=== PATIENT | female | born 1960 | race Two or more races ===

== ENCOUNTER 2020-05-03 14:12 | Outpatient (REF) | payer OTHER, SELFPAY ==
[2020-05-03 18:45] LABS: Anion Gap 14 (12-20); Blood Urea Nitrogen 12 mg/dL (9-16); Calcium 9.4 mg/dL (8.4-10.2); Carbon Dioxide 26 mmol/L (22-29); Chloride 107 mmol/L (96-108); Estimated Glomerular Filt Rate > 60; Glucose Random 103 mg/dL (60-115); Potassium 3.9 mmol/l (3.3-5.1); Sodium 143 mmol/L (135-145)
== END 2020-05-03 14:13 | disposition home or self-care (01) ==
LOC: HO.HMGCLDS 14:12
PROVIDERS: PCP Internal Medicine; Visit Provider Internal Medicine
DX: I10 Essential (primary) hypertension (principal); J45.909 Unspecified asthma, uncomplicated; F33.9 Major depressive disorder, recurrent, unspecified
CPT/HCPCS: 80048

== ENCOUNTER 2020-08-08 14:05 | Outpatient (REF) | payer OTHER, SELFPAY ==
--- NOTE | ~2020-08-08 | MM_ITS ---
EXAMINATION: MM SCREENING DIGITAL BREAST TOMOSYNTHESIS, BILATERAL CLINICAL INFORMATION: Screening. Asymptomatic. The lifetime risk of breast cancer based on the Tyrer-Cuzick Model is 4%. COMPARISON: Mammography: 07/27/2019, 07/21/2018, 07/18/2017, 06/08/2016 TECHNIQUE: Digital breast tomosynthesis is performed in both the craniocaudal and mediolateral oblique views along with computer-aided detection (CAD). Synthesized 2D images are generated from the tomosynthesis. Additional left MLO view is provided. FINDINGS: The breasts are heterogeneously dense, which may obscure small masses (ACR BI-RADS breast composition Category c). There are no significant masses, abnormal calcifications, or other abnormalities. Parenchymal pattern is similar to prior exams. Again, there is intramammary node anterior upper outer left breast and bilateral vascular calcifications. No developing density. No significant changes. MM/MM tomosynthesis screening BI IMPRESSION: No mammographic evidence of malignancy. ASSESSMENT: BI-RADS 2: Benign RECOMMENDATION: Routine annual mammography screening. This patient's information was entered into a reminder system with a target due date for their next mammogram.
== END 2020-08-08 14:06 | disposition home or self-care (01) ==
LOC: HO.MAMMO 14:05
PROVIDERS: Visit Provider Internal Medicine
DX: Z12.31 Encounter for screening mammogram for malignant neoplasm of breast (principal)
CPT/HCPCS: 77063; 77067

== ENCOUNTER 2020-10-21 13:58 | Outpatient (REF) | payer OTHER, SELFPAY ==
--- NOTE | ~2020-10-21 | XR_ITS ---
EXAMINATION: XR SHOULDER, RIGHT CLINICAL INFORMATION: Pain COMPARISON: None TECHNIQUE: AP external rotation, Grashey, scapular Y, and axillary views of the right shoulder. FINDINGS: Bone alignment is normal. No fracture or dislocation is seen. The glenohumeral joint is normal. There is mild arthritis at the acromioclavicular joint. Soft tissues are unremarkable. XR/XR shoulder RT min 2V IMPRESSION: Mild arthritis at the acromioclavicular joint.
== END 2020-10-21 13:59 | disposition home or self-care (01) ==
LOC: HO.XRAY 13:58
PROVIDERS: PCP Internal Medicine; Visit Provider Internal Medicine
DX: M25.511 Pain in right shoulder (principal)
CPT/HCPCS: 73030

== ENCOUNTER 2020-10-24 14:00 | Outpatient (RCR) | payer OTHER, SELFPAY | END 2020-11-23 12:04 | disposition other institution (70) | LOC: HO.OT 14:00 | PROVIDERS: PCP Internal Medicine; Visit Provider Internal Medicine | DX: M79.641 Pain in right hand (principal); M79.642 Pain in left hand | CPT/HCPCS: 97035; 97110; 97140; 97167; 97760 ==

== ENCOUNTER 2021-04-19 13:13 | Outpatient (REF) | payer OTHER, SELFPAY ==
[2021-04-19 14:03] LABS: MANUAL DIFF FLAG NO
[2021-04-19 14:10] LABS: Basophils Percent Auto 0.6 % (0-2); Eosinophils Absolute Auto 0.1 X10*3/uL (0.0-0.4); Eosinophils Percent Auto 1.7 % (0-4); Hematocrit 38.1 % (37.0-47.0); Hemoglobin 12.5 g/dl (12.0-16.0); Imm Gran Abs Auto 0.01 X10*3/uL (0.00-0.03); Imm Gran Pct Auto 0.2 % (0.0-0.4); Lymphocytes Absolute Auto 1.7 X10*3/uL (1.2-4.9); Lymphocytes Percent Auto 35.1 % (20-40); Mean Corpuscular HGB Conc 32.8 g/dl (31.0-35.0); Mean Corpuscular Hemoglobin 27.3 pg (27.0-33.0); Mean Corpuscular Volume 83.2 fL (80.0-98.0); Mean Platelet Volume 11.4 fL (9.4-12.3); Monocytes Absolute Auto 0.4 X10*3/uL (0.1-1.2); Monocytes Percent Auto 7.9 % (2-11); Neutrophils Absolute Auto 2.62 x10*3/uL (2.0-8.3); Neutrophils Percent Auto 54.5 % (45-73); Platelet Count 213 X10*3/uL (160-400); Red Blood Count 4.58 X10*6/uL (4.20-5.50); White Blood Count 4.8 X10*3/uL (4.8-10.8)
[2021-04-19 14:43] LABS: Alanine Aminotransferase 31 U/L (0-31); Albumin Level 4.3 g/dL (3.5-5.0); Alkaline Phosphatase 78 U/L (39-117); Anion Gap 11 (12-20); Aspartate Amino Transferase 27 U/L (5-31); Bilirubin Total 0.5 mg/dL (0.0-1.0); Blood Urea Nitrogen 15 mg/dL (9-16); Calcium 9.5 mg/dL (8.4-10.2); Carbon Dioxide 25 mmol/L (22-29); Chloride 107 mmol/L (96-108); Estimated Glomerular Filt Rate > 60; Glucose Random 107 mg/dL (60-115); Potassium 4.1 mmol/L (3.3-5.1); Sodium 139 mmol/L (135-145); Total Protein 6.9 g/dL (6.5-8.0)
[2021-04-19 14:54] LABS: TSH reflex Free T4 1.84 uIU/mL (0.32-4.0)
[2021-04-20 09:20] LABS: LDL Cholesterol Direct 120 mg/dL (<100)
== END 2021-04-19 13:14 | disposition home or self-care (01) ==
LOC: HO.HMGCLDS 13:13
PROVIDERS: Visit Provider Internal Medicine
DX: F41.0 Panic disorder [episodic paroxysmal anxiety] (principal); M79.641 Pain in right hand; M79.642 Pain in left hand; F33.9 Major depressive disorder, recurrent, unspecified; J45.909 Unspecified asthma, uncomplicated; I10 Essential (primary) hypertension
CPT/HCPCS: 36415; 80053; 83721; 84443; 85025

== ENCOUNTER 2021-08-18 11:54 | Outpatient (REF) | payer OTHER, SELFPAY ==
--- NOTE | ~2021-08-18 | MM_ITS ---
EXAMINATION: MM SCREENING DIGITAL BREAST TOMOSYNTHESIS, BILATERAL CLINICAL INFORMATION: Screening. Asymptomatic. The lifetime risk of breast cancer based on the Tyrer-Cuzick Model is 3%. COMPARISON: Mammography: 08/08/2020, 07/27/2019, 07/21/2018, 07/18/2017 TECHNIQUE: Digital breast tomosynthesis is performed in both the craniocaudal and mediolateral oblique views along with computer-aided detection (CAD). Synthesized 2D images are generated from the tomosynthesis. FINDINGS: The breasts are heterogeneously dense, which may obscure small masses (ACR BI-RADS breast composition Category c). There are no significant masses, abnormal calcifications, or other abnormalities. No developing density. No architectural abnormality or significant change from prior studies. MM/MM tomosynthesis screening BI IMPRESSION: No mammographic evidence of malignancy. ASSESSMENT: BI-RADS 1: Negative RECOMMENDATION: Routine annual mammography screening. This patient's information was entered into a reminder system with a target due date for their next mammogram.
== END 2021-08-18 11:55 | disposition home or self-care (01) ==
LOC: HO.MAMMO 11:54
PROVIDERS: Visit Provider Internal Medicine
DX: Z12.31 Encounter for screening mammogram for malignant neoplasm of breast (principal)
CPT/HCPCS: 77063; 77067

== ENCOUNTER 2021-08-29 14:12 | Emergency (ER) | payer OTHER, SELFPAY ==
[2021-08-29 14:40] VITALS: BP 167/83; PULSE 88; RESP 18; TEMP 36.3; O2SAT 99; BMI 24.0
--- NOTE | 2021-08-29 15:13 | ED_ITS ---
HPI - Back Pain/Injury General Chief Complaint: Back Pain/Injury Stated Complaint: back pain Time Seen by Provider: 08/29/21 15:00 Source: patient Mode of arrival: ambulatory Limitations: no limitations History of Present Illness HPI Narrative: Patient is a 61 year old female presenting to the emergency department today with back pain. Patient states that she is having low back pain that radiates down the back of her legs. Patient states that she has had it for a few days now and had a telehealth visit with her PCP where she was prescribed 5mg of Flexeril. She states that she already used all of her flexeril and it only helped some. Patient describes the pain as sharp, radiating down her legs, and a 4/10 on the pain scale. Patient denies any dizziness, lightheadedness, abdominal pain, nausea, vomiting, fever, chills, blurry vision, double vision, loss of vision, chest pain, difficulty breathing, shortness of breath, night sweats, pain with urination, increased urinary frequency, increased urinary urgency, blood in her urine or stool, vaginal bleeding, vaginal discharge, syncope or a near syncopal episode, recent trauma or falls, bowel incontinence, bladder incontinence, bowel retention, bladder retention, or any other complaints at this time. MD elicited complaint: back pain Pertinent past history: prior back pain Onset (ago): day(s) Timing: constant Severity: mild Pain scale (0-10): 4 Similar Symptoms Previously: Yes Quality: sharp Location: lumbar spine Radiation: left upper leg and right upper leg Exacerbating factors: none Relieving factors: none Associated symptoms: denies other symptoms Work related injury: No Related Data Previous Rx's Medication Instructions Recorded albuterol sulfate 90 mcg/actuation 1 inh INHALATION QID PRN 30 Days 07/19/20 aerosol inhaler (Ventolin HFA) #18 g cholecalciferol (vitamin D3) 50 50 mcg PO DAILY 90 Days #90 cap 07/19/20 mcg (2,000 unit) capsule acetaminophen 325 mg capsule 325 mg PO .T.i.d. PRN 90 Days #90 09/02/20 (Tylenol) cap quetiapine 25 mg tablet (Seroquel) 25 mg PO BEDTIME 90 Days #90 tab 09/02/20 fluticasone propionate 250 1 inh INHALATION BID 3 Days #60 ea 04/19/21 mcg/actuation blister powder for inhalation (Flovent Diskus) losartan 100 1 tab PO DAILY 90 Days #90 tab 04/19/21 mg-hydrochlorothiazide 25 mg tablet diclofenac sodium 75 mg 75 mg PO BID PRN 15 Days #30 tab 05/05/21 tablet,delayed release cyclobenzaprine 5 mg tablet 5 mg PO BID PRN 3 Days #6 tab 08/26/21 cyclobenzaprine 10 mg tablet 10 mg PO TID PRN 7 Days #21 tab 08/29/21 naproxen 500 mg tablet 500 mg PO BID PRN #14 tab 08/29/21 Allergies Allergy/AdvReac Type Severity Reaction Status Date / Time PCN Allergy Unknown unknown Verified 05/05/21 13:53 lisinopril AdvReac Unknown cough Verified 05/05/21 13:53 Review of Systems Constitutional: Constitutional: Reports no additional constitutional complaints, Denies chills, Denies fever(s) and Denies night sweats Eyes: Eyes: Reports no additional eye complaints, Denies blurry vision, Denies change in vision, Denies diplopia, Denies eye discharge, Denies loss of vision and Denies eye pain ENT: Denies dizziness Cardiovascular: Cardiovascular: Reports no additional cardiovascular complaints, Denies chest pain, Denies lightheadedness, Denies Loss of Consciousness and Denies dyspnea Respiratory: Respiratory: Reports no additional respiratory complaints and Denies dyspnea Gastrointestinal: Gastrointestinal: Reports no additional gastrointestinal complaints, Denies abdominal pain, Denies melena, Denies hematochezia, Denies change in bowel habits and Denies change in stool character Genitourinary: Genitourinary: Denies hematuria, Denies urinary frequency, Denies dysuria, Denies urinary incontinence, Denies urinary hesitancy and Denies urinary urgency Musculoskeletal: Musculoskeletal: Reports no additional musculoskeletal complaints, Reports back pain, Denies numbness and Denies tingling Neurologic: Denies dizziness, Denies loss of vision, Denies numbness and Denies tingling Psychiatric: Psychiatric: Reports no additional psychiatric complaints Endocrine: Endocrine: Reports no additional endocrine complaints Hematologic/Lymphatic: Hematologic/Lymphatic: Reports no additional hematologic/lymphatic complaints Allergic/Immunologic: Allergic/Immunologic: Reports no additional allergic/immunologic complaints PMFSH Past Medical History Attestation statement: The following information was validated with the patient. Source: old records reviewed Medical History Anxiety Depression, major, recurrent Hypertension, essential Surgical History History of section History of colonoscopy Family History Family History Father No problems noted. Mother HTN (hypertension) Diabetes mellitus Sister Metastatic cancer Sister Brain cancer Maternal Grandfather No problems noted. Maternal Grandmother No problems noted. Paternal Grandfather No problems noted. Paternal Grandmother No problems noted. Social History Social History Housing: House Alcohol intake: current Alcohol intake frequency: holidays/special occasions only Patient Tobacco Use Status: Former Tobacco user Advance Directives: No Advance Directives Information Provided: No Patient : No Current occupational status: employed Physical Exam Vital Signs: Vital Signs: Last Vital Signs Temp 97.3 F 08/29/21 14:40 Pulse 88 08/29/21 14:40 Resp 18 08/29/21 14:40 BP 167/83 H 08/29/21 14:40 Pulse Ox 99 08/29/21 14:40 BMI result Body Mass Index 24.0 Const: General: cooperative, no acute distress, alert and awake Nutritional Appearance: well nourished Orientation/consciousness: patient oriented x3 Limitations: no limitations HENMT: Head: Yes normal to inspection and Yes atraumatic Ears: hearing grossly normal bilaterally and external ears normal General nose exam: Normal external nose present, no nasal discharge noted and no epistaxis Face and sinus: Yes normal facial exam, No abrasion and No laceration Mouth: Normal oral and palatal mucosa present, no drooling and no muffled voice Eyes: General: appearance normal, both eyes and all related structures Periorbital: periorbital findings normal Eyelids: Yes eyelids normal Conjunctivae: conjunctivae normal Pupils: Equal, round and reactive pupils present EOM: EOMs intact bilaterally Neck: Neck: Yes normal visual inspection, Yes full ROM and Yes no lymphadenopathy Chest: Chest palpation & inspection: normal inspection of the chest Resp: Effort & Inspection: normal respiratory effort and able to speak in complete sentences Auscultation: clear to auscultation bilaterally Cardio: Rate: regular rate Rhythm: regular rhythm GI: Inspection: Yes normal to inspection : General: Yes no CVA tenderness Back/Spine/Pelvis: Back: no CVA tenderness Cervical Spine: normal cervical lordosis Thoracic/Lumbar Spine: thoracic and lumbar spine normal to inspection and thoraco-lumbar ROM normal Pelvis: no pain with anterior- posterior compression Neuro: General: patient oriented x3 and moves all extremities Cranial nerves: Yes Equal, round and reactive pupils present Cognition (Neuro): normal cognition Motor exam (neuro): 5/5 motor strength present throughout Sensory Exam: Normal double simultaneous stimulation for sensation Coordination: [id number] test normal Extrem: General: Yes normal to inspection, Yes full ROM and Yes capillary refill normal Psych: Appearance: grossly normal Mental Status: mental status grossly normal Affect: normal affect Attitude: cooperative Thought process: Normal thought process present Thought content: Normal thought content p resent Insight: Good insight present (Psych) MDM - Back Pain/Injury MDM Narrative Medical decision making narrative: Patient is a 61 year old female presenting to the emergency department today with low back pain that radiates down her legs. Patient's physical exam was unremarkable. I explained my physical exam findings to the patient. I answered all questions asked by the patient. Patient received IM toradol, IM solu-medrol, and PO Flexeril which she stated helped her pain significantly. I stressed the importance of the patient taking her medication as prescribed. I stressed the importance of the patient following up with her primary care provider. I explained to the patient given her current presentation, this is very likely a sciatic nerve issue. I stressed to the patient that if symptoms persist after 1 week, she should seek follow up with an orthopedic and pain specialist. I stressed the importance of the patient returning to the emergency department immediately if her symptoms were to worsen or if she were to develop any dizziness, shortness of breath, difficulty breathing, chest pain, blurry vision, loss of vision, nausea, vomiting, abdominal pain, fever, chills, back pain, or any other complaints. Patient verbalized agreement and understanding with this treatment plan and discharge. Differential Diagnosis Differential diagnosis: Likely lumbar radiculopathy, sciatica and strain of lumbar region Medical Records Attestation: I reviewed the patient's medical records. Discharge Plan Discharge Clinical Impression: Sciatic nerve pain, Back pain Patient Disposition: Home, Self-Care Instructions: Sciatica (ED), Acute Low Back Pain (ED), Back Pain (ED), Lower Back Exercises (ED) Additional Instructions: Follow up with your primary care provider. Return to the emergency department immediately if your symptoms worsen or if you develop any dizziness, shortness of breath, difficulty breathing, chest pain, blurry vision, loss of vision, nausea, vomiting, abdominal pain, fever, chills, back pain, or any other complaints. Prescriptions: New cyclobenzaprine 10 mg tablet 10 mg PO TID PRN (Reason: muscle spasm) 7 Days Qty: 21 0RF naproxen 500 mg tablet 500 mg PO BID PRN (Reason: pain) Qty: 14 0RF No Action cholecalciferol (vitamin D3) 50 mcg (2,000 unit) capsule 50 mcg PO DAILY 90 Days Qty: 90 0RF albuterol sulfate [Ventolin HFA] 90 mcg/actuation HFA aerosol inhaler 1 inh inhalation QID PRN (Reason: shortness of breath or wheezing) 30 Days Qty: 18 0RF cyclobenzaprine 5 mg tablet 5 mg PO BID PRN (Reason: muscle spasm) 3 Days Qty: 6 0RF quetiapine [Seroquel] 25 mg tablet 25 mg PO BEDTIME 90 Days Qty: 90 0RF Hold Instructions: Doctor's Order acetaminophen [Tylenol] 325 mg capsule 325 mg PO .T.i.d. PRN (Reason: pain) 90 Days Qty: 90 0RF losartan-hydrochlorothiazide 100-25 mg tablet 1 tab PO DAILY 90 Days Qty: 90 0RF Flovent Diskus 250 mcg/actuation blister with device 1 inh inhalation BID 3 Days Qty: 60 2RF diclofenac sodium 75 mg tablet,delayed release (DR/EC) 75 mg PO BID PRN (Reason: pain, moderate) 15 Days Qty: 30 0RF Rx Instructions: Take medication with food Referrals: Huy Connell MD [Physician] - 1 week Erika Vyas MD [Primary Care Provider] - 2 days Jermain Jacobson MD [Physician] - 1 week Interventions: ED Discharge Assessment Last Done: 08/29/21 15:57 Discharge Date/Time: 08/29/21 16:08 Print Language: Uzbek
[2021-08-29] MEDS: Cyclobenzaprine HCl 10 MG TABLET PO (15:47)
[2021-08-29] MEDS: Ketorolac Tromethamine 30 MG/ML VIAL IM (15:48)
[2021-08-29] MEDS: methylPREDNISolone Sod Succ 125 MG/2 ML VIAL 120 MG IM (15:48)
== END 2021-08-29 16:08 | disposition home or self-care (01) ==
PROVIDERS: Emergency Provider Emergency Medicine; PCP Internal Medicine
DX: M54.42 Lumbago with sciatica, left side (principal); M54.41 Lumbago with sciatica, right side; I10 Essential (primary) hypertension
CPT/HCPCS: 96372; 99284; J1885; J2930

== ENCOUNTER 2021-09-06 09:22 | Outpatient (REF) | payer OTHER, SELFPAY ==
--- NOTE | ~2021-09-06 | XR_ITS ---
EXAMINATION: XR LUMBOSACRAL SPINE CLINICAL INFORMATION: Radiculopathy. COMPARISON: None TECHNIQUE: Three views of the lumbosacral spine. FINDINGS: There is a rudimentary disc at the S1-S2 disc level. The vertebral bodies and posterior elements are normal. The disc spaces are preserved and the vertebral alignment is normal. The paraspinal soft tissues are normal. XR/XR lumbar spine 2-3V IMPRESSION: Unremarkable lumbar spine examination.
== END 2021-09-06 09:23 | disposition home or self-care (01) ==
LOC: HO.HMGCX 09:22
PROVIDERS: Visit Provider Internal Medicine
DX: M54.16 Radiculopathy, lumbar region (principal)
CPT/HCPCS: 72100

== ENCOUNTER 2021-10-06 15:00 | Outpatient (RCR) | payer OTHER, SELFPAY ==
--- NOTE | 2021-09-11 14:50 | MHC.PT.EP ---
[facility] [place] Office [place] Office [place] Office [address] [place] [address] [phone] F: [phone] F: [phone] F: [phone] F: [phone] Physical Therapy Plan of Care Date of Evaluation: Date of Surgery: n/a Diagnosis: radiculopathy, lumbar region R lumbar radiculopathy Assessment: Patient is a 61 year old female presenting to PT with complaints of pain in her low back. Pt reports onset of pain began 1 month ago due to insidious onset but feels it could be related to her job that requires a lot of physical lifting. She presents today with impairments in pain, lumbar ROM, hip strength, core strength, and posture. 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 Pt expresses fdc goal of reducing pain, and is motivated to work towards this in PT. Clinical presentation today is most consistent with signs and sx associated with low back pain that is likely myofascial in nature and pt will benefit from skilled PT to address the following problems and impairments noted upon evaluation: pain, lumbar ROM, hip strength, core strength, and posture. These problems limit the patient with the following functional activities: bending, lifting, work, and ADLs. The prescribed treatment plan of care is medically necessary. Co-morbidities of HTN were identified and taken into considerations of plan of care. Pt was educated on HEP, role of PT, prognosis, POC. Frequency and Duration: The patient will be seen 2 x week x 4 weeks Short Term Goals: Pt will demonstrate lumbar AROM in available ranges with min to no pain in 2 weeks. Pt will demonstrate improved hip strength by 1/3 MMT for improved lumbopelvic stability in 2 weeks. Pt will demonstrate ability to perform PPT with good TA activation in 2 weeks for improved core stability. Pt will demonstrate improved postural awareness by sitting with biomechanically correct posture without cues throughout session to improve overall postural function in 2 weeks. Technical Services Specialist Goals: Pt will demonstrate improved Todd score to <10% disability in 4 weeks for improved functional mobility. Pt will demonstrate ability to bend with min to no pain in 4 weeks for improved tolerance to ADLs. Pt will demonstrate ability to lift with min to no pain in 4 weeks for improved tolerance to work activities. Treatment Plan: Modalities to reduce pain, spasms and effusion. Manual therapy to restore motion and function. Therapeutic exercise to improve strength and flexibility. Neuromuscular re-education for posture and balance. Therapeutic activities to return to functional activities of daily living. Electronically signed by: Fraiha Jimenez, PT, DPT, ATC Please sign and return to therapist. Thank you for your referral.
--- NOTE | 2021-10-06 15:55 | MHC.PT.DC ---
[facility] [place] Office [place] Office [place] Office [address] [place] [address] [phone] F: [phone] F: [phone] F: [phone] F: [phone] Physical Therapy Discharge Report Diagnosis: radiculopathy, lumbar region R lumbar radiculopathy Date of Surgery: n/a Date of Evaluation: 09/11/21 Date of Discharge: 10/06/21 Treatments to Date: 7 Cancellations to Date: 1 No Shows to Date: 0 Discharge Status: Improved Function Patient Elected to Stop Discharge Summary: Pt has made good progress since start of care in her pain levels. She has not met all her goals but she is satisfied with her progress at this point and feels ready to continue with her program at home. She stated today that she is scheduled to follow up with pain management as well. I feel it is appropriate for her to continue with her program at home based on her compliance and satisfaction with lower pain levels. At this point pt to be d/c to HEP. She understands the importance of fdc continuation of her HEP. Electronically signed by: Fariha Jimenez, PT, DPT, ATC Please sign and return to therapist. Thank you for your referral.
== END 2021-10-06 15:56 | disposition home or self-care (01) ==
LOC: HO.PTCHIC 15:00
PROVIDERS: Visit Provider Internal Medicine
DX: M54.16 Radiculopathy, lumbar region (principal)
CPT/HCPCS: 97110; 97161

== ENCOUNTER 2021-12-15 13:04 | Outpatient (REF) | payer OTHER, SELFPAY ==
[2021-12-15 16:27] LABS: MANUAL DIFF FLAG NO
[2021-12-15 16:30] LABS: Basophils Absolute Auto 0.1 X10*3/uL (0.0-0.2); Basophils Percent Auto 1.4 % (0-2); Eosinophils Absolute Auto 0.2 X10*3/uL (0.0-0.4); Eosinophils Percent Auto 3.6 % (0-4); Hematocrit 36.3 % (37.0-47.0); Hemoglobin 11.9 g/dl (12.0-16.0); Imm Gran Abs Auto 0.01 X10*3/uL (0.00-0.03); Imm Gran Pct Auto 0.2 % (0.0-0.4); Lymphocytes Absolute Auto 2.5 X10*3/uL (1.2-4.9); Lymphocytes Percent Auto 48.3 % (20-40); Mean Corpuscular HGB Conc 32.8 g/dl (31.0-35.0); Mean Corpuscular Hemoglobin 26.8 pg (27.0-33.0); Mean Corpuscular Volume 81.8 fL (80.0-98.0); Mean Platelet Volume 11.2 fL (9.4-12.3); Monocytes Absolute Auto 0.4 X10*3/uL (0.1-1.2); Monocytes Percent Auto 7.9 % (2-11); Neutrophils Percent Auto 38.6 % (45-73); Platelet Count 261 X10*3/uL (160-400); Red Blood Count 4.44 X10*6/uL (4.20-5.50); Red Cell Distribution Width 13.6 % (11.0-16.0); White Blood Count 5.1 X10*3/uL (4.8-10.8)
[2021-12-15 16:41] LABS: Alanine Aminotransferase 26 U/L (0-31); Albumin Level 4.5 g/dL (3.5-5.0); Alkaline Phosphatase 68 U/L (39-117); Anion Gap 14 (12-20); Aspartate Amino Transferase 25 U/L (5-31); Bilirubin Total 0.9 mg/dL (0.0-1.0); Blood Urea Nitrogen 24 mg/dL (9-16); Calcium 9.7 mg/dL (8.4-10.2); Carbon Dioxide 27 mmol/L (22-29); Chloride 106 mmol/L (96-108); Estimated Glomerular Filt Rate > 60; Glucose Random 97 mg/dL (60-115); Potassium 3.9 mmol/L (3.3-5.1); Sodium 143 mmol/L (135-145); Total Protein 7.2 g/dL (6.5-8.0)
[2021-12-16 22:22] LABS: LDL Cholesterol Direct 85 mg/dL (<100)
== END 2021-12-15 13:05 | disposition home or self-care (01) ==
LOC: HO.HMGCLDS 13:04
PROVIDERS: Visit Provider Internal Medicine
DX: F33.9 Major depressive disorder, recurrent, unspecified (principal); J45.40 Moderate persistent asthma, uncomplicated; I10 Essential (primary) hypertension
CPT/HCPCS: 36415; 80053; 83721; 85025

== ENCOUNTER 2022-11-20 15:06 | Outpatient (REF) | payer OTHER, SELFPAY ==
--- NOTE | ~2022-11-20 | MM_ITS ---
EXAMINATION: MM SCREENING DIGITAL BREAST TOMOSYNTHESIS, BILATERAL CLINICAL INFORMATION: Screening. Asymptomatic. The lifetime risk of breast cancer based on the Tyrer-Cuzick Model is 3%. COMPARISON: Mammography: 08/18/2021, 08/08/2020, 07/27/2019 TECHNIQUE: Digital breast tomosynthesis is performed in both the craniocaudal and mediolateral oblique views along with computer-aided detection (CAD). Synthesized 2D images are generated from the tomosynthesis. FINDINGS: The breasts are heterogeneously dense, which may obscure small masses (ACR BI-RADS breast composition Category c). Parenchymal pattern is similar to prior studies. There is no developing density or architectural abnormality. The axilla and skin contours are unremarkable. No significant changes. There are no significant masses, abnormal calcifications, or other abnormalities. MM/MM tomosynthesis screening BI IMPRESSION: No mammographic evidence of malignancy. ASSESSMENT: BI-RADS 1: Negative RECOMMENDATION: Routine annual mammography screening. This patient's information was entered into a reminder system with a target due date for their next mammogram.
== END 2022-11-20 15:07 | disposition home or self-care (01) ==
LOC: HO.MAMMO 15:06
PROVIDERS: PCP Internal Medicine; Visit Provider Internal Medicine
DX: Z12.31 Encounter for screening mammogram for malignant neoplasm of breast (principal)
CPT/HCPCS: 77063; 77067

== ENCOUNTER 2023-02-14 11:30 | Outpatient (REF) | payer OTHER, SELFPAY ==
[2023-02-14 13:10] LABS: Hematocrit 36.1 % (37.0-47.0); Hemoglobin 11.8 g/dl (12.0-16.0)
[2023-02-14 13:44] LABS: Alanine Aminotransferase 20 U/L (0-31); Alkaline Phosphatase 50 U/L (39-117); Anion Gap 10 (12-20); Aspartate Amino Transferase 20 U/L (5-31); Bilirubin Total 1.6 mg/dL (0.0-1.0); Blood Urea Nitrogen 18 mg/dL (9-16); Calcium 9.5 mg/dL (8.4-10.2); Carbon Dioxide 29 mmol/L (22-29); Chloride 106 mmol/L (96-108); Cholesterol 210 mg/dL (<200); Estimated Glomerular Filt Rate > 60; Glucose Fasting 78 mg/dL (60-99); HDL Cholesterol 47 mg/dL (>40); Potassium 3.9 mmol/L (3.3-5.1); Sodium 141 mmol/L (135-145); Total Protein 6.5 g/dL (6.5-8.0); Triglycerides 603 mg/dL (<150)
== END 2023-02-14 11:31 | disposition home or self-care (01) ==
LOC: HO.HMGCLDS 11:30
PROVIDERS: PCP Internal Medicine; Visit Provider Internal Medicine
DX: F33.9 Major depressive disorder, recurrent, unspecified (principal); F41.0 Panic disorder [episodic paroxysmal anxiety]; J45.40 Moderate persistent asthma, uncomplicated; I10 Essential (primary) hypertension
CPT/HCPCS: 36415; 80053; 80061; 85014; 85018

== ENCOUNTER 2023-02-19 14:15 | Outpatient (AMB) | payer OTHER, SELFPAY ==
--- NOTE | 2023-02-19 14:17 | MHC.PC.OV ---
Vital Signs 02/19/23 14:18 Height 5 ft 1 in Weight 126 lb 4 oz BMI 23.9 BP 130/72 Blood Pressure Location Rt brachial Position Sitting Pulse 98 Pulse Source Pulse Oximeter Pulse Oximetry (%) 100 Oxygen Delivery Method Room Air Intake Visit Reasons: Annual PE Allergies Penicillins Allergy (Unknown, Verified 02/19/23 14:21) Unknown lisinopril Adverse Reaction (Unknown, Verified 02/19/23 14:21) cough Medication List - Last Reconciled 02/19/23 by Erika Vyas MD acetaminophen 500 mg PO Q6H PRN 90 days albuterol sulfate 90 mcg/actuation (Ventolin HFA) 1 inh inhalation QID PRN 30 days albuterol sulfate 0.63 mg (3 mL) inhalation QID PRN 90 days albuterol sulfate 90 mcg/actuation (ProAir HFA) 1 inh inhalation QID PRN 30 days buspirone 5 mg PO .q am PRN 30 days cholecalciferol (vitamin D3) 50 mcg PO DAILY 90 days diclofenac sodium 75 mg PO BID PRN 30 days fluticasone propionate 250 mcg/actuation (Flovent Diskus) 1 inh inhalation BID 90 days losartan-hydrochlorothiazide 100-25 mg 1 tab PO DAILY 90 days Tobacco use date assessed: 02/19/23 Fall risk assessment: No Falls in past year Last assessed Fall Risk: 02/19/23 Dental Screening Dental Screen Date: 02/19/23 Did you have a dental visit in the last 12 months?: Yes Did you have a dental problem in the last 6 months where you did not have access to dental care?: No Was dental information given to patient?: No HPI Annual PE HPI Details Patient is 62-year-old female came in today for physical examination Patient had labs done in January Total bili is 1.6 Triglyceride level is 603 Hemoglobin 11.8 Lab values discussed with the patient she agree to take fenofirate which I have sent for her Mammogram was July of this year Patient does not want have Pap smear or colonoscopy However she tells me that for the past 2 months she has been having vaginal bleeding off and on Explained to patient that this is worrisome I am ordering ultrasound of pelvis and she will have to see the OBGYN for evaluation. She agrees Patient suffer from asthma and she found mold in her rental property she is requesting a letter for the [facility] which I have provided for her. She continued to feel very anxious and cry uncontrollably after passing of her she is going through counseling which is helping I have sent lorazepam 0.5 mg tablet to be taken only as needed. Follow-up 3 months [facility], [facility] Medical History Anxiety Depression, major, recurrent Hypertension, essential Surgical History History of section History of colonoscopy Family History Father No problems noted. Mother HTN (hypertension) Diabetes mellitus Sister Metastatic cancer Sister Brain cancer Maternal Grandfather No problems noted. Maternal Grandmother No problems noted. Paternal Grandfather No problems noted. Paternal Grandmother No problems noted. Social History Housing: House Alcohol intake: current Alcohol intake frequency: holidays/special occasions only Patient Tobacco Use Status: Former Tobacco user e-Cigarette/Vaping Use: Never Used Current occupational status: employed Cognitive needs: No Hearing needs: No Vision needs: No Questionnaire PHQ-9 Over the last 2 weeks, how often have you been bothered by any of the following problems? 1. Little interest or pleasure in doing things: nearly every day 2. Feeling down, depressed, or hopeless: nearly every day 3. Trouble falling or staying asleep, or sleeping too much: nearly every day 4. Feeling tired or having little energy: nearly every day 5. Poor appetite or overeating: nearly every day 6. Feeling bad about yourself - or that you are a failure or have let yourself or your family down: nearly every day 7. Trouble concentrating on things, such as reading the newspaper or watching television: nearly every day 8. Moving or speaking so slowly that other people could have noticed. Or the opposite - being so fidgety or restless that you have been moving around a lot more than usual: nearly every day 9. Thoughts that you would be better off or of hurting yourself in some way: not at all Total score: 24 Depression Screening Interpretation: Negative [id number] - PHQ-9 Billing: Yes Source: Developed by Drs. Russell Ascencio, Akanksha Schroeder, Binu Jesus and colleagues, with an educational mayur from [employer]. Thrive Questionnaire Date Thrive assessed: 09/06/21 AUDIT C Alcohol Use Questionnaire (AUDIT-C) 1. How often do you have a drink containing alcohol?: Monthly or less 2. How many drinks containing alcohol do you have on a typical day when you are drinking?: 1 or 2 3. How often do you have six or more drinks on one occasion?: Never Total Score: 1 EDITH-7 AMB Questionnaire EDITH-7 Date EDITH - 7 assessed: 09/06/21 Source: Developed by Drs. Russell Ascencio, Akanksha Schroeder, Binu Jesus and colleagues, with an educational mayur from [employer]. Review of Systems Const Denies chills, Denies fever(s) and Denies headache(s) Eyes Denies blurry vision ENT Denies headache(s), Denies nasal discharge, Denies nasal obstruction, Denies odynophagia and Denies sinus pain Card Denies chest pain at rest and Denies chest pain with activity Resp Denies cough and Denies hemoptysis GI Denies diarrhea, Denies odynophagia, Denies vomiting and Denies hematemesis Reports as per HPI Musc Denies abnormal gait Skin/Breast Reports as per HPI Neuro Denies Neuro-related abnormal movements, Denies Abnormal speech present, Denies abnormal gait, Denies headache(s) and Denies Sensory deficit (Neuro) Psych Denies mood swings and Denies paranoia Endo Reports as per HPI Yanick/Lymph Reports as per HPI Aller/Immun Reports as per HPI Physical exam (Primary Care) Vital Signs: Last Vital Signs Pulse 98 02/19/23 14:18 BP 130/72 02/19/23 14:18 Pulse Ox 100 02/19/23 14:18 Oxygen Delivery Method Room Air 02/19/23 14:18 BMI result Body Mass Index 23.9 Tobacco/Smoking Status: Tobacco use Status Tobacco use date assessed 02/19/23 02/19/23 14:19 Patient Tobacco Use Status Former Tobacco user 02/19/23 14:19 e-Cigarette/Vaping Use Never Used 02/19/23 14:19 PHQ-9: PHQ-9 Score PHQ-9: Total score 24 02/19/23 15:00 Depression Screening Interpretation: Negative Thrive Assessment: Date of Thrive Assessment Date Thrive assessed 09/06/21 02/19/23 14:19 Const General: cooperative, comfortable and no acute distress Orientation/consciousness: patient oriented x3 HENMT Head: Yes normocephalic and Yes atraumatic Eyes General: appearance normal, both eyes and all related structures Pupils: Equal, round and reactive pupils present EOM: EOMs intact bilaterally Neck Neck: Yes supple and No lymphadenopathy Thyroid: Thyroid normal Lymphatic: no lymphadenopathy noted Chest Breast/axilla palpation: normal palpation of the breasts Resp Effort & Inspection: normal respiratory effort and able to speak in complete sentences Auscultation: clear to auscultation bilaterally Cardio Heart sounds: S1 normal heart sound present and S2 normal heart sound present GI Palpation (GI): Soft to palpation and nontender Auscultation: normal bowel sounds General: Yes no CVA tenderness Back/Spine/Pelvis Back: no CVA tenderness Skin General skin exam: elasticity normal and turgor normal Neuro General: patient oriented x3 and gait normal Cranial nerves: Yes Equal, round and reactive pupils present Speech: No Abnormal speech present Sensory Exam: No Sensory deficit (Neuro) Coordination: tandem gait normal and Romberg test negative Extrem General: Yes normal exam except as noted and No edema Assessment and Plan Assessment & Plan (1) Encounter for general adult medical examination with abnormal findings: Code(s): Z00.01 - Encounter for general adult medical examination with abnormal findings (2) Postmenopausal bleeding: Code(s): N95.0 - Postmenopausal bleeding (3) Hypertension, essential: Code(s): I10 - Essential (primary) hypertension (4) Depression, major, recurrent: Code(s): F33.9 - Major depressive disorder, recurrent, unspecified Qualifiers: Active/Remission status: currently active Major depression episode severity: moderate Qualified Code(s): F33.1 - Major depressive disorder, recurrent, moderate (5) Complicated grieving: Code(s): F43.21 - Adjustment disorder with depressed mood (6) Asthma, moderate persistent: Code(s): J45.40 - Moderate persistent asthma, uncomplicated Qualifiers: Asthma complication type: uncomplicated Qualified Code(s): J45.40 - Moderate persistent asthma, uncomplicated (7) Panic anxiety syndrome: Code(s): F41.0 - Panic disorder [episodic paroxysmal anxiety] Plan Patient is 62-year-old female came in today for physical examination Patient had labs done in January Total bili is 1.6 Triglyceride level is 603 Hemoglobin 11.8 Lab values discussed with the patient she agree to take fenofirate which I have sent for her Mammogram was July of this year Patient does not want have Pap smear or colonoscopy However she tells me that for the past 2 months she has been having vaginal bleeding off and on Explained to patient that this is worrisome I am ordering ultrasound of pelvis and she will have to see the OBGYN for evaluation. She agrees Patient suffer from asthma and she found mold in her rental property she is requesting a letter for the [facility] which I have provided for her. She continued to feel very anxious and cry uncontrollably after passing of her she is going through counseling which is helping I have sent lorazepam 0.5 mg tablet to be taken only as needed. Follow-up 3 months Orders: Orders US pelvic and transvaginal Today N95.0 - Postmenopausal bleeding Referrals PRODUCT DEVELOPMENT INTERN Referral N95.0 - Postmenopausal bleeding Medications: New lorazepam 0.5 mg PO DAILY PRN 30 tabs 0RF anxiety fenofibrate nanocrystallized 145 mg PO DAILY 90 tabs 1RF Refilled losartan-hydrochlorothiazide 100-25 mg 1 tab PO DAILY 90 tabs 1RF 90 days albuterol sulfate 90 mcg/actuation (Ventolin HFA) 1 inh inhalation QID PRN 18 grams 0RF shortness of breath or wheezing 30 days Discontinued buspirone Discontinued Reason: Patient Completed Course 5 mg PO .q am 30 days PRN 30 tabs 2RF anxiety diclofenac sodium Discontinued Reason: Patient Completed Course 75 mg PO BID 30 days PRN 60 tabs 0RF pain Coding Level of Care Code Est Pt Prev Care 40-64y(16203) Diagnoses Encounter for general adult medical examination with abnormal findings Z00.01 Postmenopausal bleeding N95.0 Hypertension, essential I10 Depression, major, recurrent F33.1 Active/Remission status: currently active Major depression episode severity: moderate Complicated grieving F43.21 Asthma, moderate persistent J45.40 Asthma complication type: uncomplicated Panic anxiety syndrome F41.0
[2023-02-19 14:18] VITALS: BP 130/72; PULSE 98; O2SAT 100; BMI 23.9
== END 2023-02-19 14:52 | disposition home or self-care (01) ==
PROVIDERS: Visit Provider Internal Medicine
DX: Z00.01 Encounter for general adult medical examination with abnormal findings (principal); I10 Essential (primary) hypertension; F33.1 Major depressive disorder, recurrent, moderate; F43.21 Adjustment disorder with depressed mood; J45.40 Moderate persistent asthma, uncomplicated; N95.0 Postmenopausal bleeding; F41.0 Panic disorder [episodic paroxysmal anxiety]
CPT/HCPCS: 99396

== ENCOUNTER 2023-03-05 12:40 | Outpatient (REF) | payer OTHER, SELFPAY ==
--- NOTE | ~2023-03-05 | US_ITS ---
EXAMINATION: US PELVIS CLINICAL INFORMATION: Postmenopausal bleeding for 2 months on and off. COMPARISON: None available. TECHNIQUE: Ultrasound of the pelvis is performed using both transabdominal and transvaginal transducers along with Doppler. Transvaginal imaging is performed due to inadequate visualization transabdominally. TECHNOLOGIST NOTE: The patient was emotionally uncomfortable during the exam limiting visualization. Visualization limited due to bowel gas and discomfort. FINDINGS: The uterus is retroverted, anteflexed and measures 9.5 x 2.1 x 3.3 cm. No discrete fibroids appreciated. No significant free fluid. Nabothian cysts identified in the cervix. Endometrial thickness of 20 mm, abnormal in this patient with postmenopausal bleeding. Gynecologic consultation and possible biopsy recommended. Right ovary measures 2.7 x 1.8 x 2.2 cm, volume 5.6 mL. A 1.8 x 1.7 x 1.7 cm complex right ovarian cyst with multiple septations and diffuse internal echoes. Left ovary measures 1.5 x 1.4 x 2.3 cm, volume 2.5 mL and is difficult to characterize as it was only seen on transabdominal ultrasound images. US/US pelvic and transvaginal IMPRESSION: 1. Abnormally thickened endometrium measuring 20 mm, which is a suspicious finding in a patient with postmenopausal bleeding. Gynecologic consultation and endometrial biopsy recommended. 2. Right ovarian 1.8 cm complex cyst with multiple septations in postmenopausal patient. Management of Adnexal Lesions (newly detected incidentally on US in asymptomatic non females) Cyst Size Reproductive Age Female < 3 cm: No follow-up. Normal physiology. At your discretion, may not need to be described in the report. > 3 to 5 cm: No follow-up. Describe in report and include ?almost certainly benign.? > 5 to 7 cm: Yearly follow-up. Describe in report and include ?almost certainly benign.? > 7 cm: Further evaluation with MR or surgery should be considered since these may be difficult to assess completely with US. Cyst Size Postmenopausal Female < 1 cm: No follow-up. Clinically inconsequential. At your discretion, may not need to be described in the report. > 1 to 7 cm: Describe and include ?almost certainly benign? and recommend yearly followup, at least initially, with US. > 7 cm: Further imaging with MR or surgery. Length of followup: No consensus was reached regarding how long a lesion must be followed to demonstrate its stability. Cystic ovarian neoplasms generally grow very slowly. These recommendations may be helpful in symptomatic women as well, but the clinical setting will often determine management in a manner beyond the scope of these recommendations. Reference: Sergio et. al. Management of Asymptomatic Ovarian and Other Adnexal Cysts Imaged at US, Society of Radiologists in Ultrasound Consensus Statement, Ultrasound Quarterly 2010;26:121-131. This study was presented today 03/06/2023 at 2:00PM for interpretation. PSA staff will provide results to referring provider at this time.
== END 2023-03-05 12:41 | disposition home or self-care (01) ==
LOC: HO.HMGCX 12:40
PROVIDERS: PCP Internal Medicine; Visit Provider Internal Medicine
DX: N95.0 Postmenopausal bleeding (principal)
CPT/HCPCS: 76830; 76856

== ENCOUNTER 2023-03-13 07:42 | Outpatient (AMB) | payer OTHER, SELFPAY ==
[2023-03-13 07:44] VITALS: BP 132/70; BMI 23.7
--- NOTE | 2023-03-13 07:44 | A.OFFVIS_ITS ---
Intake Vital Signs 03/13/23 07:44 Height 5 ft 1 in Weight 125 lb 10.616 oz BMI 23.7 BP 132/70 Intake Visit Reasons: PMB/PCP Referral Load Out Supervisor Required: No Information Interpreted: non-clinical & clinical Central Melt Specialist: Central Melt Specialist Present (Juliette BAKER) Accompanied by: Self / Same As Patient Allergies Penicillins Allergy (Unknown, Verified 03/13/23 07:47) Unknown lisinopril Adverse Reaction (Unknown, Verified 03/13/23 07:47) cough Is last menstrual period known: Yes Last menstrual period: 04/14/20 Post menopausal: Yes Patient : No Do you need a note to return to daycare/school/sports/work: Yes (for surgery on saturday) HPI HPI Comments History of Present Illness Details Presenting referred from PCP regarding postmenopausal bleeding. The patient had initial episode of vaginal bleeding a year ago which occurred 2 months ago. Last co testing was in 2018 was negative. Pelvic ultrasound done recently showed the following: The uterus is retroverted, anteflexed and measures 9.5 x 2.1 x 3.3 cm. No discrete fibroids appreciated. No significant free fluid. Nabothian cysts identified in the cervix. Endometrial thickness of 20 mm, abnormal in this patient with postmenopausal bleeding. Gynecologic consultation and possible biopsy recommended. Right ovary measures 2.7 x 1.8 x 2.2 cm, volume 5.6 mL. A 1.8 x 1.7 x 1.7 cm complex right ovarian cyst with m ultiple septations and diffuse internal echoes. Left ovary measures 1.5 x 1.4 x 2.3 cm, volume 2.5 mL and is difficult to characterize as it was only seen on transabdominal ultrasound images. [facility] Medical History Anxiety Depression, major, recurrent Hypertension, essential Surgical History (Updated 03/13/23 @ 07:49 by Juliette Fraga CMA) Hx of tubal ligation History of colonoscopy History of section Family History Father No problems noted. Mother HTN (hypertension) Diabetes mellitus Sister Metastatic cancer Sister Brain cancer Maternal Grandfather No problems noted. Maternal Grandmother No problems noted. Paternal Grandfather No problems noted. Paternal Grandmother No problems noted. Social History Housing: House Alcohol intake: current Alcohol intake frequency: holidays/special occasions only Patient Tobacco Use Status: Former Tobacco user e-Cigarette/Vaping Use: Never Used Current occupational status: employed Cognitive needs: No Hearing needs: No Vision needs: No Female Reproductive History Menstrual Date of last menstrual period: 04/14/20 Total pregnancies: 2 Full term: 2 Review of Systems Const All systems reviewed & are unremarkable except as noted in HPI and below Card Reports as per HPI and Reports no additional complaints Resp Reports as per HPI and Reports no additional complaints GI Reports as per HPI and Reports no additional complaints Reports as per HPI Physical Exam Vital Signs: Last Vital Signs BP 132/70 03/13/23 07:44 BMI result Body Mass Index 23.7 Const General: cooperative, healthy appearing and comfortable Chest Chest palpation & inspection: normal inspection of the chest and normal palpation of entire chest wall Breast/axilla inspection: normal inspection of the breasts and normal inspection of the axillae Breast/axilla palpation: normal palpation of the breasts, normal palpation of the axillae and no axillary lymphadenopathy Resp Effort & Inspection: normal respiratory effort Auscultation: clear to auscultation bilaterally Percussion: percussion normal Cardio Palpation: normal PMI Rate: regular rate Rhythm: regular rhythm Heart sounds: no murmurs and no rubs Peripheral pulses: Peripheral pulses 2+ throughout GI Inspection: Yes normal to inspection Palpation (GI): Soft to palpation, nontender, no guarding, not rigid and No hepatosplenomegaly present Percussion: Yes normal to percussion Auscultation: normal bowel sounds Rectal Exam - Female: deferred General: Yes no CVA tenderness External Female Exam: normal external appearance and normal appearance of the urethra Speculum Exam - Vagina: normal appearance of the vagina, normal palpation, no lesions and no masses Speculum Exam - Cervix: normal appearance of the cervix, normal palpation, no lesions, no masses and nontender Bimanual exam- vagina & uterus: normal bimanual exam, normal palpation, uterine size normal, normal palpation, uterine shape normal, No Cervical tenderness present and non-tender Bimanual Exam- Adnexa, other: normal adnexae Back/Spine/Pelvis Back: no CVA tenderness Assessment & Plan Assessment & Plan (1) Postmenopausal bleeding: Code(s): N95.0 - Postmenopausal bleeding Plan: Discussed with the patient the pelvic ultrasound findings, the endometrial str ipe thickenss measured by ultrasound was more than 4mm. The negative predictive value, positive predictive value, Sensitivity, specificity of using ultrasound measurement of endometrial stripe to detecting endometrial pathology including hyperplasia , polyp or cancer were discussed with the patient. Recommended to the patient that the next step is an endometrial sampling via hysteroscopy D&C possible polypectomy versus endometrial biopsy to r/o endometrial pathology including hyperplasia or cancer. All the pros and cons risks and benefits of each approach were discussed with the patient, endometrial biopsy being less invasive, office procedure with less sensitivity and inability diagnose a polyp and removal versus hysteroscopy done under anesthesia more invasive more sensitive to endometrial cancer and possibility of diagnosing and endometrial polyp with the possibility of polypectomy. All questions were answered pt verbalized understanding and decided to proceed with endometrial biopsy, EMB attempted, but aborted per patient's request because of pain. Recommended hysteroscopy D&C possible polypectomy/myomectomy. Discussed with the patient the procedure , all benefits and risks including but not limited to inability to complete the procedure , bleeding, infection, possible need for blood transfusion with all its risk ( HIV,syphilis, Hepatitis, anaphylaxis shock, others..), injury to bladder, rectum, possible need for laparoscopy/laparotomy or hysterectomy. The patient verbalized understanding and signed the consent. Instructions given the patient to schedule a 2 week postoperative appointment (2) Complex ovarian cyst: Code(s): N83.299 - Other ovarian cyst, unspecified side Plan: Discussed with the patient the persistent complex ovarian cyst solid component by Ultrasound. The differential diagnosis discussed with the patient includes the following but not limited to: benign and malignant gynecological and non- gynecological. Next step is CA 125, CA 19-9, CEA and CT scan of the pelvis with and without contrast. The patient verbalized understanding and agreed with the plan. Orders: Orders CT abdomen pelvis wo/w IV con Today N83.299 - Other ovarian cyst, unspecified side CA-125 Today N83.299 - Other ovarian cyst, unspecified side Carbohydrate Antigen 19-9 Today N83.299 - Other ovarian cyst, unspecified side Carcinoembryonic Antigen Today N83.299 - Other ovarian cyst, unspecified side Coding Level of Care Code New Pt Level 3 (33682) Diagnoses Postmenopausal bleeding N95.0 Complex ovarian cyst N83.299
== END 2023-03-13 09:21 | disposition home or self-care (01) ==
PROVIDERS: PCP Internal Medicine; Visit Provider Obstetrics & Gynecology
DX: N95.0 Postmenopausal bleeding (principal); N83.299 Other ovarian cyst, unspecified side
CPT/HCPCS: 99203

== ENCOUNTER 2023-03-13 07:42 | Outpatient (REF) | payer OTHER, SELFPAY ==
[2023-03-16 05:28] LABS: CA-125 7 U/mL (<35); Carbohydrate Antigen 19-9 15 U/mL (<34)
== END 2023-03-13 07:43 | disposition home or self-care (01) ==
LOC: HO.LAB 07:42
PROVIDERS: PCP Internal Medicine; Visit Provider Obstetrics & Gynecology
DX: N83.299 Other ovarian cyst, unspecified side (principal); N95.0 Postmenopausal bleeding
CPT/HCPCS: 36415; 82378; 86301; 86304

== ENCOUNTER 2023-03-13 09:07 | Outpatient (REF) | payer OTHER, SELFPAY ==
[2023-03-15 03:58] LABS: HPV mRNA E6/E7 rflx Not Detected (Not Detected)
== END 2023-03-13 09:08 | disposition home or self-care (01) ==
LOC: HO.LNP 09:07
PROVIDERS: Visit Provider Obstetrics & Gynecology
DX: Z12.4 Encounter for screening for malignant neoplasm of cervix (principal); Z11.51 Encounter for screening for human papillomavirus (HPV); N95.0 Postmenopausal bleeding
CPT/HCPCS: 87624; 88142

== ENCOUNTER 2023-03-15 08:45 | Outpatient (REF) | payer OTHER, SELFPAY | END 2023-03-15 08:46 | disposition home or self-care (01) | LOC: HO.LNP 08:45 | PROVIDERS: Visit Provider Obstetrics & Gynecology | DX: Z13.89 Encounter for screening for other disorder (principal) ==

== ENCOUNTER 2023-03-19 11:08 | Day surgery (SDC) | payer OTHER, SELFPAY ==
--- NOTE | 2023-03-18 08:28 | HO.ANESPROP2 ---
Documented by User: Jessica Gama NP 03/18/23 08:29 HPI - Anesthesia Eval Consult details Narrative: 62yo F for D&C Hysteroscopy,poss myomectomy,poss polypectomy, PMFSH Active Problems Active Problems: All Active Problems (Updated 03/13/23 @ 08:14 by Júnior Peraza MD) Complex ovarian cyst (Acute) Encounter for general adult medical examination with abnormal findings (Acute) Postmenopausal bleeding (Acute) Hospital discharge follow-up (Acute) Bilateral hand pain (Acute) Panic anxiety syndrome (Acute) Shoulder pain, right (Acute) Asthma, moderate persistent (Acute) Uncontrolled hypertension (Acute) Complicated grieving (Acute) Low back pain (Acute) Right lumbar radiculitis (Acute) Depression, major, recurrent (Acute) Hypertension, essential (Acute) Past Medical History Medical History Anxiety Depression, major, recurrent Hypertension, essential Family History Family History Father No problems noted. Mother HTN (hypertension) Diabetes mellitus Sister Metastatic cancer Sister Brain cancer Maternal Grandfather No problems noted. Maternal Grandmother No problems noted. Paternal Grandfather No problems noted. Paternal Grandmother No problems noted. Surgical History Surgical History Hx of tubal ligation History of colonoscopy History of section Social History Social History Housing: House Alcohol intake: current Alcohol intake frequency: holidays/special occasions only Patient Tobacco Use Status: Former Tobacco user e-Cigarette/Vaping Use: Never Used Are you DNR?: No Advance Directives: No Advance Directives Information Provided: Yes Current occupational status: employed Cognitive needs: No Hearing needs: No Vision needs: No Meds Allergies Allergy/AdvReac Type Severity Reaction Status Date / Time Penicillins Allergy Unknown Unknown Verified 03/13/23 07:47 lisinopril AdvReac Unknown cough Verified 03/13/23 07:47 Exam Exam Date and Time: March 18, [id number] Pertinent Lab Results Pertinent Lab Results: Laboratory Tests 12/15/21 12/15/21 02/14/23 13:13 13:13 11:38 WBC 5.1 Hgb Hct Plt Count 261 Sodium Potassium 3.9 Chloride Carbon Dioxide BUN Creatinine 02/14/23 02/14/23 11:38 11:38 WBC Hgb 11.8 L Hct 36.1 L Plt Count Sodium 141 Potassium Chloride 106 Carbon Dioxide 29 BUN 18 H Creatinine 0.73 Assessment and Plan Assessment Anesthesia Assessment: Chart Reviewed Documented by User: Adeline Croft MD 03/19/23 13:12 PMFSH Active Problems Active Problems: All Active Problems (Updated 03/19/23 @ 12:57 by Adeline Croft MD) Complex ovarian cyst (Acute) Encounter for general adult medical examination with abnormal findings (Acute) Postmenopausal bleeding (Acute) Hospital discharge follow-up (Acute) Bilateral hand pain (Acute) Panic anxiety syndrome (Acute) Shoulder pain, right (Acute) Asthma, moderate persistent (Acute)- does not use inhaler everyday, only sometimes Uncontrolled hypertension (Acute) Complicated grieving (Acute) Low back pain (Acute) Right lumbar radiculitis (Acute) Depression, major, recurrent (Acute) Hypertension, essential (Acute) Dry cough, tickle in throat every night- thinks mold in room Past Medical History Medical History Anxiety Depression, major, recurrent Hypertension, essential Family History Family History Father No problems noted. Mother HTN (hypertension) Diabetes mellitus Sister Metastatic cancer Sister Brain cancer Maternal Grandfather No problems noted. Maternal Grandmother No problems noted. Paternal Grandfather No problems noted. Paternal Grandmother No problems noted. Family history of problems with anesthesia: No Surgical History Surgical History Hx of tubal ligation History of colonoscopy History of section History of Problems with Anesthesia: No Social History Social History Housing: House Alcohol intake: current Alcohol intake frequency: holidays/special occasions only Patient Tobacco Use Status: Former Tobacco user e-Cigarette/Vaping Use: Never Used Are you DNR?: No Advance Directives: No Advance Directives Information Provided: Yes Current occupational status: employed Cognitive needs: No Hearing needs: No Vision needs: No Meds Allergies Allergy/AdvReac Type Severity Reaction Status Date / Time Penicillins Allergy Unknown Unknown Verified 03/13/23 07:47 lisinopril AdvReac Unknown cough Verified 03/13/23 07:47 Exam Height,Weight and Vital Signs: Height 5 ft 1 in Weight 57.153 kg Vital Signs Temp Pulse Resp BP Pulse Ox O2 Del Method 03/19/23 11:21 97 F 83 20 163/76 H 98 Room Air Airway Mallampati Class: II TM Dist: >3cm Neck ROM: Full Loose/Missing/Broken Teeth: Yes (Some teeth missing. Broken teeth top and bottom front) Heart: RRR Lungs: CTAB Assessment and Plan Assessment Anesthesia Assessment: Anesthesia Plan Discussed Final Anesthetic Review Family History of Problems with Anesthesia: No History of Problems with Anesthesia: No NPO: Yes ASA Class: II Final Preanesthetic Review: No Changes in Pt Med Stat, Meds/Allgs Chart Reviewed, Consent Obtained/Reviewed and Anes Risks/Benef Reviewed Patient Risk: Intermediate Procedure Risk: Low Assessment/Block/Sedation in SS: Assess/Block/Sedation-SS Anesthetic Plan Anesthetic Plan: GA Disposition: Standard PACU
[2023-03-19] VITALS (9 sets, daily range): BP systolic 113–163; BP diastolic 58–79; PULSE 61–83; RESP 8–20; TEMP 36.1–36.6; O2SAT 44–100; BMI 23.8
[2023-03-19] MEDS: Lactated Ringers 1,000 ML 100 ML IVCONT (11:40)
--- NOTE | 2023-03-19 12:53 | MHC.SHP ---
Pre-Procedural Eval Section A Date of Service: 03/19/23 The patient is an INPATIENT: No Changes since office visit: No Cold of Flu in the past 2 weeks, No New Medical Problems, No Changes in Medication and No Patient answered all questions The History & Physical has been completed within 30 days and I have reviewed it.: Yes Section B Chief Complaint: Postmenopausal bleeding Allergies: Allergies Allergy/AdvReac Type Severity Reaction Status Date / Time Penicillins Allergy Unknown Unknown Verified 03/13/23 07:47 lisinopril AdvReac Unknown cough Verified 03/13/23 07:47 Plan Diagnosis/Plan: Unchanged I have reviewed the history and physical and performed a pertinent physical examination on my patient. No changes have occurred unless specified. Time Spent With Patient Time: Total time managing care of this patient today ____ minutes.
--- NOTE | 2023-03-19 14:27 | P.BOP_ITS ---
Brief Operative Note Date of Service: 03/19/23 Pre-op diagnosis: Post menopausal bleeding with thickened endometrial by ultrasound Post-op diagnosis: same (Endometrial polyp) Procedure: Hysteroscopy D&C, Polypectomy Surgeon: Júnior Peraza MD Anesthesia: GLMA Was an .Net Architect used for this Procedure?: No Estimated blood loss (mL): 0 Pathology: other (Endometrial Scrapping. Polyp) Condition: stable Disposition: PACU
--- NOTE | 2023-03-19 14:28 | W.PM.OPN ---
Operative Note Operative Note Date of Service: 03/19/23 Narrative: Preop Diagnosis: Post Menopausal bleeding with thickened endometrium by ultrasound Operation: Diagnostic Hysteroscopy, Dilataion & Curettage, polypectomy Post Op Diagnosis: Endometrial polyp QBL: Minimal Anesthesia: GLMA Surgeon: Júnior Peraza MD Wet Suit Gluer: None Complication: None Pathology: Endometrial Scrapings, endometrial polyp Procedure: The patient was put in the dorsal lithotomy position, scrubbed, and draped in the usual manner. A sterile speculum was inserted in the patient's vagina. The anterior lip of the cervix was grasped with a single tooth tenaculum. The cervix was dilated up to 5 mm, then the scope was inserted in the patient's uterus. Inspection revealed endometrial polyp. The Myosure Reach device was used; hysteroscopic polypectomy was done without any complication, the scope was removed from the endometrial cavity , sharp curettings was carried on with minimal to moderate amount of tissues retrieved. At the end of the procedure, all instruments were taken out of the patient uterine and vaginal cavity. The single tooth tenaculum was removed and homeostasis was assured using pressure,. The patient tolerated the procedure well and was transferred to the PACU in a stable condition.
== END 2023-03-19 16:25 | disposition home or self-care (01) ==
PROVIDERS: PCP Internal Medicine; Visit Provider Obstetrics & Gynecology
PROC: 0UDB8ZZ Extraction of Endometrium, Via Natural or Artificial Opening Endoscopic (ICD-10-PCS; CPT 58558; principal; 2023-03-19 13:00)
DX: N95.0 Postmenopausal bleeding (principal); N83.299 Other ovarian cyst, unspecified side; C54.1 Malignant neoplasm of endometrium; N84.1 Polyp of cervix uteri; I10 Essential (primary) hypertension; F33.9 Major depressive disorder, recurrent, unspecified; F41.1 Generalized anxiety disorder; Z98.51 Tubal ligation status; J45.40 Moderate persistent asthma, uncomplicated; Z88.0 Allergy status to penicillin; Z88.8 Allergy status to other drugs, medicaments and biological substances; Z87.891 Personal history of nicotine dependence
CPT/HCPCS: 58558; 88305; 88341; 88342; J1100; J1885; J2250; J2405; J3010

== ENCOUNTER → 2023-03-19 11:08 | Outpatient (BNV) | payer OTHER, SELFPAY | PROVIDERS: PCP Internal Medicine; Visit Provider Obstetrics & Gynecology | DX: N95.0 Postmenopausal bleeding (principal); N84.0 Polyp of corpus uteri | CPT/HCPCS: 58558 ==

== ENCOUNTER 2023-03-22 12:46 | Outpatient (AMB) | payer OTHER, SELFPAY ==
--- NOTE | 2023-03-22 13:00 | MHC.OFFVIS ---
Intake Vital Signs 03/22/23 13:03 Height 5 ft 1 in Weight 125 lb BMI 23.6 BP 142/78 H Intake Visit Reasons: post op Consumer Banker Required: No Information Interpreted: non-clinical & clinical Accompanied by: Self / Same As Patient Allergies Penicillins Allergy (Unknown, Verified 03/22/23 13:04) Unknown lisinopril Adverse Reaction (Unknown, Verified 03/22/23 13:04) cough Post menopausal: Yes HPI HPI Comments History of Present Illness Details Presenting 2 days post hysteroscopy D&C/polypectomy with no complaints. The pathology showed the following: A. Endocervical/endometrial polyp, resection: Benign mixed polyp, predominantly endocervical glandular and focal endometrial; no atypia or carcinoma. B. 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 No discrete fibroids appreciated. No significant free fluid. Nabothian cysts identified in the cervix. Endometrial thickness of 20 mm, abnormal in this patient with postmenopausal bleeding. Gynecologic consultation and possible biopsy recommended. Right ovary measures 2.7 x 1.8 x 2.2 cm, volume 5.6 mL. A 1.8 x 1.7 x 1.7 cm complex right ovarian cyst with multiple septations and diffuse internal echoes. Left ovary measures 1.5 x 1.4 x 2.3 cm, volume 2.5 mL and is difficult to characterize as it was only seen on transabdominal ultrasound images. CA 125, CA 19-9 and CEA were normal [facility] Medical History Anxiety Depression, major, recurrent Hypertension, essential Surgical History Hx of tubal ligation History of colonoscopy History of section Family History Father No problems noted. Mother HTN (hypertension) Diabetes mellitus Sister Metastatic cancer Sister Brain cancer Maternal Grandfather No problems noted. Maternal Grandmother No problems noted. Paternal Grandfather No problems noted. Paternal Grandmother No problems noted. Social History Housing: House Alcohol intake: current Alcohol intake frequency: holidays/special occasions only Patient Tobacco Use Status: Former Tobacco user e-Cigarette/Vaping Use: Never Used Current occupational status: employed Cognitive needs: No Hearing needs: No Vision needs: No Review of Systems Const All systems reviewed & are unremarkable except as noted in HPI and below Reports as per HPI and Reports no additional complaints GI Reports no additional complaints Reports no additional complaints Physical Exam Vital Signs: Last Vital Signs BP 142/78 H 03/22/23 13:03 BMI result Body Mass Index 23.6 Assessment & Plan Assessment & Plan (1) Endometrial cancer: Comment: Endometrioid adenocarcinoma grade 1 Code(s): C54.1 - Malignant neoplasm of endometrium Plan: Discussed with the patient is of the pathology showing endometrial endometrioid adenocarcinoma grade 1 arising in 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 The patient was referred to [facility] for further management. Appointment scheduled on 04/04 at 10:[address] Narvaez, the patient is aware. All questions answered, the patient verbalized understanding. (2) Complex ovarian cyst: Code(s): N83.299 - Other ovarian cyst, unspecified side Plan: Discussed with the patient the results of the tumor marker CA 125, CEA and CA 19- 9, CT scan of abdomen /pelvis with and without contrast ordered, referral to waste reclaimer Oncology placed, the patient is aware 04/04 at 10:[address] Barraza Orders: Orders CT abdomen pelvis wo/w IV con Today C54.1 - Malignant neoplasm of endometrium, N83.299 - Other ovarian cyst, unspecified side Coding Level of Care Code Est Pt Level 3 (73638) Diagnoses Endometrial cancer C54.1 Complex ovarian cyst N83.299
[2023-03-22 13:03] VITALS: BP 142/78; BMI 23.6
== END 2023-03-22 13:34 | disposition home or self-care (01) ==
LOC: HO.HWS 12:46
PROVIDERS: PCP Internal Medicine; Visit Provider Obstetrics & Gynecology
DX: C54.1 Malignant neoplasm of endometrium (principal); N83.299 Other ovarian cyst, unspecified side
CPT/HCPCS: 99213

== ENCOUNTER → 2023-03-22 12:46 | Outpatient (BNVA) | payer OTHER, SELFPAY | PROVIDERS: PCP Internal Medicine; Visit Provider Obstetrics & Gynecology | DX: N83.299 Other ovarian cyst, unspecified side (principal); C64.1 Malignant neoplasm of right kidney, except renal pelvis | CPT/HCPCS: 99212 ==

== ENCOUNTER 2023-03-26 09:59 | Outpatient (REF) | payer OTHER, SELFPAY ==
[2023-03-26 13:44] LABS: Blood Urea Nitrogen 16 mg/dL (9-16); Estimated Glomerular Filt Rate > 60
== END 2023-03-26 10:00 | disposition home or self-care (01) ==
LOC: HO.HMGCLDS 09:59
PROVIDERS: PCP Internal Medicine; Visit Provider Obstetrics & Gynecology
DX: N83.299 Other ovarian cyst, unspecified side (principal)
CPT/HCPCS: 36415; 82565; 84520

== ENCOUNTER 2023-04-22 13:26 | Outpatient (REF) | payer OTHER, SELFPAY | END 2023-04-22 13:27 | disposition home or self-care (01) | LOC: HO.CT 13:26 | PROVIDERS: PCP Internal Medicine; Visit Provider Obstetrics & Gynecology | DX: Z13.89 Encounter for screening for other disorder (principal) ==

== ENCOUNTER 2023-04-29 11:04 | Outpatient (REF) | payer MEDICARE, MEDICAID, SELFPAY ==
[2023-04-29 14:10] LABS: Blood Urea Nitrogen 14 mg/dL (9-16); Estimated Glomerular Filt Rate 58
== END 2023-04-29 11:05 | disposition home or self-care (01) ==
LOC: HO.HMGCLDS 11:04
PROVIDERS: PCP Internal Medicine; Visit Provider Obstetrics & Gynecology
DX: Z13.89 Encounter for screening for other disorder (principal)
CPT/HCPCS: 36415; 82565; 84520

== ENCOUNTER 2023-04-29 13:49 | Outpatient (REF) | payer MEDICARE, MEDICAID, SELFPAY ==
--- NOTE | ~2023-04-29 | CT_ITS ---
EXAMINATION: CT ABDOMEN AND PELVIS WITH CONTRAST CLINICAL INFORMATION: Ovarian cyst. COMPARISON: Pelvic ultrasound February 2023. TECHNIQUE: Multidetector volumetric images were obtained from the superior aspect of the liver through the pubic symphysis following administration 85 mL of Omnipaque 350 intravenous contrast. Sagittal and coronal reformatted images were obtained on the technologist's workstation. Oral contrast: Yes This CT examination was performed using dose optimization techniques as appropriate, variously including the following: *Automated exposure control *Adjustment of mA and/or kV according to patient size (this includes techniques or standardized protocols for targeted exams where dose is matched to indication/reason for exam; i.e. extremities or head) *Use of iterative reconstruction technique DLP: 263 mGy-cm FINDINGS: LUNG BASES: The visualized lung bases are unremarkable. LIVER, GALLBLADDER, AND BILIARY TREE: The liver is normal in size, shape, and attenuation. 2 peripherally enhancing liver lesions suggestive of hemangiomas measuring 3 x 2.5 cm high in the dome of the right lobe and 3 x 4.7 cm exophytic to the posterior segment of the right lobe. No other focal liver lesion. The gallbladder is normal. There is no biliary duct dilatation. PANCREAS: Unremarkable. SPLEEN: Unremarkable. ADRENAL GLANDS: Unremarkable. KIDNEYS AND URETERS: The kidneys are normal in size, shape, and attenuation. No hydronephrosis, hydroureter, or calculi seen. No perinephric stranding. BLADDER: Not optimally distended. GASTROINTESTINAL TRACT: Question small lesion in the hepatic flexure measuring 1 cm, axial image 32 series 3 coronal reconstructed image 23. There is stool in the colon. Small and large bowel is otherwise normal. The appendix is normal. ABDOMINAL WALL: No significant hernia is appreciated. LYMPH NODES: Normal. VASCULAR: Unremarkable. PELVIC VISCERA: The uterus has been removed. There is a small amount of fluid in the pelvis. Right ovarian cyst is not definitely identified. This may be seen, axial image 65 series 3, measuring 1.2 x 2 cm; however, it is difficult to delineate from adjacent fluid. OSSEOUS STRUCTURES: Lucent lesion in the L5 vertebral body, question hemangioma. Small subcentimeter sclerotic lesion in the left iliac crest probably representing a bone island. Degenerative changes of the spine. CT/CT abdomen pelvis w IV con IMPRESSION: The uterus has been removed. Small amount of fluid in the pelvis. Right ovarian cyst not definitely identified. This may be seen measuring 1.2 x 2 cm; however, it is difficult to delineate for certain given similar attenuation adjacent pelvic fluid. Question 1 cm lesion possibly representing a polyp in the hepatic flexure. Correlation with colonoscopy recommended. There is constipation. Two liver hemangiomas. The largest measures 3 x 4.7 cm and is exophytic to the posterior segment of the right lobe of the liver. Due to large size in exophytic appearance this is at increased risk for bleeding. Surgical or interventional radiology consultation recommended. Fleischner guidelines were followed.
[2023-04-29] MEDS: iohexoL 350 MG/ML 100 ML INFUS..BTL 85 ML IV (16:46)
[2023-04-29] MEDS: Barium Sulfate Oral (Vanilla) 450 ML ORAL.SUSP 900 ML PO (16:47)
== END 2023-04-29 13:50 | disposition home or self-care (01) ==
LOC: HO.CT 13:49
PROVIDERS: PCP Internal Medicine; Visit Provider Obstetrics & Gynecology
DX: N83.299 Other ovarian cyst, unspecified side (principal)
CPT/HCPCS: 36415; 74177; 82565; 84520; Q9967

== ENCOUNTER 2023-05-07 10:14 | Outpatient (AMB) | payer MEDICARE, MEDICAID, SELFPAY ==
--- NOTE | 2023-05-07 10:15 | A.OFFVIS_ITS ---
Intake Vital Signs 05/07/23 10:17 Height 5 ft 1 in Weight 125 lb BMI 23.6 BP 142/80 H Intake Visit Reasons: CT follow up Engineering Consultant Required: No Allergies Penicillins Allergy (Unknown, Verified 05/07/23 10:17) Unknown lisinopril Adverse Reaction (Unknown, Verified 05/07/23 10:17) cough Is last menstrual period known: No Post menopausal: Yes Patient : No HPI HPI Comments History of Present Illness Details The patient is presenting for follow-up after CT scan of abdomen pelvis. She Underwent robotic laparoscopic assisted hysterectomy with bilateral being oophorectomy and lymph node dissection 04/16 for endometrial cancer, according the patient she has stage I endometrial cancer . CT scan showed the following: The uterus has been removed. Small amount of fluid in the pelvis. Right ovarian cyst not definitely identified. This may be seen measuring 1.2 x 2 cm; however, it is difficult to delineate for certain given similar attenuation adjacent pelvic fluid. Question 1 cm lesion possibly representing a polyp in the hepatic flexure. Correlation with colonoscopy recommended. There is constipation. Two liver hemangiomas. The largest measures 3 x 4.7 cm and is exophytic to the posterior segment of the right lobe of the liver. Due to large size in exophytic appearance this is at increased risk for bleeding. Surgical or interventional radiology consultation recommended. [facility] Medical History Endometrial cancer Anxiety Depression, major, recurrent Hypertension, essential Surgical History Hx of tubal ligation History of colonoscopy History of section Family History Father No problems noted. Mother HTN (hypertension) Diabetes mellitus Sister Metastatic cancer Sister Brain cancer Maternal Grandfather No problems noted. Maternal Grandmother No problems noted. Paternal Grandfather No problems noted. Paternal Grandmother No problems noted. Housing: House Alcohol intake: current Alcohol intake frequency: holidays/special occasions only Patient Tobacco Use Status: Former Tobacco user e-Cigarette/Vaping Use: Never Used Patient : No Current occupational status: employed Cognitive needs: No Hearing needs: No Vision needs: No Female Reproductive History Menstrual control method: permanent sterilization Date of last pap smear: 03/13/23 Review of Systems Const All systems reviewed & are unremarkable except as noted in HPI and below Reports as per HPI and Reports no additional complaints GI Reports no additional complaints Reports no additional complaints Physical Exam Vital Signs: Last Vital Signs BP 142/80 H 05/07/23 10:17 BMI result Body Mass Index 23.6 Assessment & Plan Assessment & Plan (1) Colonic polyp: Code(s): K63.5 - Polyp of colon Plan: Discussed with the patient the finding on CT scan showing hepatic flexure colonic 1 cm questionable polyp, refer to GI for colonoscopy. All questions answered, the patient verbalized understanding. Instructed the patient to call our office back in case a referral appointment is not scheduled, missed or canceled so that we will assist on rescheduling another appointment, the patient verbalized understanding agreed with the plan. Orders: Referrals Gastroenterology Referral Z12.11 - Encounter for screening for malignant neoplasm of colon Coding Level of Care Code Est Pt Level 3 (98115) Diagnoses Colonic polyp K63.5
[2023-05-07 10:17] VITALS: BP 142/80; BMI 23.6
== END 2023-05-07 12:20 | disposition home or self-care (01) ==
LOC: HO.HWS 10:14
PROVIDERS: PCP Internal Medicine; Visit Provider Obstetrics & Gynecology
DX: K63.5 Polyp of colon (principal)
CPT/HCPCS: 99213

== ENCOUNTER → 2023-05-07 10:14 | Outpatient (BNVA) | payer MEDICARE, MEDICAID, SELFPAY | PROVIDERS: PCP Internal Medicine; Visit Provider Obstetrics & Gynecology | DX: C54.1 Malignant neoplasm of endometrium (principal); K63.5 Polyp of colon; Z90.710 Acquired absence of both cervix and uterus; Z90.722 Acquired absence of ovaries, bilateral | CPT/HCPCS: 99212 ==

== ENCOUNTER 2023-05-24 13:48 | Outpatient (AMB) | payer MEDICARE, MEDICAID, SELFPAY ==
--- NOTE | 2023-05-24 13:58 | MHC.PC.OV ---
Vital Signs 05/24/23 14:00 Height 5 ft 1 in Weight 131 lb BMI 24.7 BP 158/78 H Blood Pressure Location Rt brachial Position Sitting Pulse 88 Pulse Source Pulse Oximeter Pulse Oximetry (%) 97 Oxygen Delivery Method Room Air Intake Visit Reasons: 3 month follow up Allergies Penicillins Allergy (Unknown, Verified 05/24/23 13:58) Unknown lisinopril Adverse Reaction (Unknown, Verified 05/24/23 13:58) cough Medication List - Last Reconciled 05/24/23 by Erika Vyas MD acetaminophen 500 mg PO Q6H PRN 90 days albuterol sulfate 0.63 mg (3 mL) inhalation QID PRN 90 days albuterol sulfate 90 mcg/actuation (Ventolin HFA) 1 inh inhalation QID PRN 30 days cholecalciferol (vitamin D3) 50 mcg PO DAILY 90 days fluticasone propionate 250 mcg/actuation (Flovent Diskus) 1 inh inhalation BID 90 days lorazepam 0.5 mg PO DAILY PRN losartan-hydrochlorothiazide 100-25 mg 1 tab PO DAILY 90 days Tobacco use date assessed: 05/24/23 Fall risk assessment: No Falls in past year Last assessed Fall Risk: 05/24/23 Dental Screening Dental Screen Date: 05/24/23 Did you have a dental visit in the last 12 months?: No Was dental information given to patient?: Patient has dentist HPI 3 month follow up HPI Details Patient is 63-year-old female came in today for her regular follow-up appointment Patient have very high triglyceride level 603 Last visit I sent fenofirate for the patient which she never took I have sent a script again. I encouraged that patient start taking that Next time she comes in in August she will need to do fasting labs Patient suffer from asthma , which has been stable with Flovent inhaler She continued to feel very anxious and cry uncontrollably after passing of her she is going through counseling which is helping She does not want to take any medication She was recently found to have a complex ovarian cyst patient had bilateral oophorectomy done she has a follow-up appointment with surgeon on Saturday At this time she is off work and resting. CT scan of abdomen also showed slight liver abnormality, colonoscopy was recommended Her OBGYN Dr. Peraza ordered the colonoscopy and gastroenterology referral she is still waiting to hear from them. Her blood pressure is elevated, I encouraged patient to start monitoring it at home it can also be that whenever she comes to doctor's office it is elevated She is taking her blood pressure medication regularly she tells me, she is on losartan hydrochlorothiazide 100-25 mg once a day Complaining of feeling constipated and is requesting script for Senokot which I have sent for her Follow-up 3 months [facility] Medical History Endometrial cancer Anxiety Depression, major, recurrent Hypertension, essential Surgical History Hx of tubal ligation History of colonoscopy History of section Family History Father No problems noted. Mother HTN (hypertension) Diabetes mellitus Sister Metastatic cancer Sister Brain cancer Maternal Grandfather No problems noted. Maternal Grandmother No problems noted. Paternal Grandfather No problems noted. Paternal Grandmother No problems noted. Social History Housing: House Alcohol intake: current Alcohol intake frequency: holidays/special occasions only Patient Tobacco Use Status: Former Tobacco user e-Cigarette/Vaping Use: Never Used Current occupational status: employed Cognitive needs: No Hearing needs: No Vision needs: No Questionnaire PHQ-9 Over the last 2 weeks, how often have you been bothered by any of the following problems? 1. Little interest or pleasure in doing things: nearly every day 2. Feeling down, depressed, or hopeless: more than half the days 3. Trouble falling or staying asleep, or sleeping too much: more than half the days 4. Feeling tired or having little energy: nearly every day 5. Poor appetite or overeating: more than half the days 6. Feeling bad about yourself - or that you are a failure or have let yourself or your family down: more than half the days 7. Trouble concentrating on things, such as reading the newspaper or watching television: several days 8. Moving or speaking so slowly that other people could have noticed. Or the opposite - being so fidgety or restless that you have been moving around a lot more than usual: more than half the days 9. Thoughts that you would be better off or of hurting yourself in some way: not at all Total score: 17 Depression Screening Interpretation: Positive Depression Screening Follow-up: Existing condition and Declines treatment Depression Screening Done: Yes 77395 - PHQ-9 Billing: Yes Source: Developed by Drs. Russell Ascencio, Binu Mejia and colleagues, with an educational mayur from [email or web address]. Thrive Questionnaire Date Thrive assessed: 05/24/23 I am a: Patient What is your living situation today?: I have a steady place to live Within the past 12 months, did the food you bought not last and you didn't have the money to get more?: Never true Within the past 12 months, did you worry whether your food would run out before you got money to buy more?: Never true Do you have trouble paying for medicines?: No Do you have trouble getting transportation to medical appointments?: No Do you have trouble paying your heating and electricity bill?: No Do you have trouble taking care of your child, family member or friend?: No Do you have trouble with day-to-day activities such as bathing, preparing meals, shopping, managing finances, etc.?: No Are you currently unemployed and looking for a job?: No Are you interested in more education?: No Please select the resources that you would like help with: None Currently or been in a relationship where the following occur: no concerns reported EDITH-7 AMB Questionnaire EDITH-7 Date EDITH - 7 assessed: 05/24/23 Feeling nervous, anxious, or on edge: 1 = Several days Not being able to stop or control worryin = Several days Worrying too much about different things: 2 = More than half the days Trouble relaxin = Not at all Being so restless that it is hard to sit still: 2 = More than half the days Becoming easily annoyed or irritable: 0 = Not at all Feeling afraid as if something awful might happen: 2 = More than half the days Total EDITH-7 score (0-4 normal; 5-9 mild; 10-14 moderate; 15-21 severe): 8 Source: Developed by Drs. Russell Ascencio, Binu Mejia and colleagues, with an educational mayur from [email or web address]. EDITH-7 Assessment Billing EDITH-7 Assessment Tool: EDITH-7 Assessment 94834 Review of Systems Const Denies chills and Denies fever(s) ENT Denies epistaxis and Denies nasal discharge Card Denies chest pain Resp Denies chest congestion, Denies cough and Denies hemoptysis GI Denies diarrhea and Denies nausea Skin/Breast Denies rash Neuro Reports no additional complaints Psych Reports no additional complaints Endo Reports no additional complaints Physical exam (Primary Care) Vital Signs: Last Vital Signs Pulse 88 05/24/23 14:00 BP 158/78 H 05/24/23 14:00 Pulse Ox 97 05/24/23 14:00 Oxygen Delivery Method Room Air 05/24/23 14:00 BMI result Body Mass Index 24.7 Tobacco/Smoking Status: Tobacco use Status Tobacco use date assessed 05/24/23 05/24/23 13:59 Patient Tobacco Use Status Former Tobacco user 05/24/23 13:59 e-Cigarette/Vaping Use Never Used 05/24/23 13:59 PHQ-9: PHQ-9 Score PHQ-9: Total score 17 05/24/23 14:26 Depression Screening Interpretation: Positive Depression Screening Follow-up: Existing condition and Declines treatment Thrive Assessment: Date of Thrive Assessment Date Thrive assessed 05/24/23 05/24/23 14:04 Currently or been in a relationship where the following occur: no concerns reported Const General: cooperative, comfortable and no acute distress Orientation/consciousness: patient oriented x3 HENMT Head: Yes normocephalic Eyes General: appearance normal, both eyes and all related structures Neck Neck: Yes supple Resp Effort & Inspection: normal respiratory effort, no cough and no stridor Cardio Rhythm: regular rhythm Heart sounds: S1 normal heart sound present and S2 normal heart sound present Skin General skin exam: turgor normal Neuro General: patient oriented x3, tone normal and moves all extremities Extrem Right lower extremity: no edema Left lower extremity: no edema Office Procedures Flu Questionnaire Does the patient have a severe egg allergy?: No Does the patient have severe life threatening allergies?: No Does the patient have a fever or illness today?: No Has the patient ever had Guillain-Sandoval Syndrome?: No Has the patient ever had any past reaction to a flu shot?: No Immunizations flu vacc [id number] 6mos up(PF) 60 mcg(15 mcgx4)/0.5 mL IM syringe Performing Provider: Erika Vyas MD Performing Location: [facility] [place] Administered by: Shy uRiz CMA on 05/24/23 14:24 Dose Route Admin Location Dispensed Lot Number Expiration Date NDC Student Finance Advisor 0.5 mL IM Right Deltoid 0.5 mL [id number] 12/15/23 [id number] [employer] VIS Given Date VIS Provided VIS Publication Date 05/24/23 Single Vaccine 21 Eligibility Eligibility Date Funding Source Not VFC Eligible 05/24/23 Private Assessment and Plan Assessment & Plan (1) Hypertension, essential: Code(s): I10 - Essential (primary) hypertension (2) Depression, major, recurrent: Code(s): F33.9 - Major depressive disorder, recurrent, unspecified Qualifiers: Active/Remission status: currently active Major depression episode severity: moderate Qualified Code(s): F33.1 - Major depressive disorder, recurrent, moderate (3) Complicated grieving: Code(s): F43.21 - Adjustment disorder with depressed mood (4) Asthma, moderate persistent: Code(s): J45.40 - Moderate persistent asthma, uncomplicated Qualifiers: Asthma complication type: uncomplicated Qualified Code(s): J45.40 - Moderate persistent asthma, uncomplicated (5) Panic anxiety syndrome: Code(s): F41.0 - Panic disorder [episodic paroxysmal anxiety] (6) Constipation by delayed colonic transit: Code(s): K59.01 - Slow transit constipation (7) History of bilateral oophorectomy: Code(s): Z90.722 - Acquired absence of ovaries, bilateral (8) Hypertriglyceridemia: Code(s): E78.1 - Pure hyperglyceridemia Plan Patient is 63-year-old female came in today for her regular follow-up appointment Patient have very high triglyceride level 603 Last visit I sent fenofirate for the patient which she never took I have sent a script again. I encouraged that patient start taking that Next time she comes in in August she will need to do fasting labs Patient suffer from asthma , which has been stable with Flovent inhaler She continued to feel very anxious and cry uncontrollably after passing of her she is going through counseling which is helping She does not want to take any medication She was recently found to have a complex ovarian cyst patient had bilateral oophorectomy done she has a follow-up appointment with surgeon on Saturday At this time she is off work and resting. CT scan of abdomen also showed slight liver abnormality, colonoscopy was recommended Her OBGYN Dr. Peraza ordered the colonoscopy and gastroenterology referral she is still waiting to hear from them. Her blood pressure is elevated, I encouraged patient to start monitoring it at home it can also be that whenever she comes to doctor's office it is elevated She is taking her blood pressure medication regularly she tells me, she is on losartan hydrochlorothiazide 100-25 mg once a day Complaining of feeling constipated and is requesting script for Senokot which I have sent for her Follow-up 3 months Orders: Orders Influenza [id number] Immunization Today Z23 - Encounter for immunization Comprehensive Frederica. Panel Fast Today E78.1 - Pure hyperglyceridemia, I10 - Essential (primary) hypertension Lipid Panel Today E78.1 - Pure hyperglyceridemia, I10 - Essential (primary) hypertension Medications: New sennosides-docusate sodium 8.6-50 mg (Senokot-S) 2 tab-caps (2 x 8.6-50 mg) PO BEDTIME 180 tabs 0RF constipation 90 days K59.03 - Drug induced constipation, T40.2X5A - Adverse effect of other opioids, initial encounter Refilled fluticasone propionate 250 mcg/actuation (Flovent Diskus) 1 inh inhalation BID 3 multiple units 1RF 90 days J45.40 - Moderate persistent asthma, uncomplicated albuterol sulfate 90 mcg/actuation (Ventolin HFA) 1 inh inhalation QID PRN 18 grams 0RF shortness of breath or wheezing 30 days fenofibrate nanocrystallized 145 mg PO DAILY 90 tabs 1RF high cholestrol losartan-hydrochlorothiazide 100-25 mg 1 tab PO DAILY 90 tabs 1RF 90 days cholecalciferol (vitamin D3) 50 mcg PO DAILY 90 caps 0RF 90 days Coding Level of Care Code Est Pt Level 4 (84809) Diagnoses Hypertension, essential I10 Moderate episode of recurrent major depressive disorder F33.1 Active/Remission status: currently active Major depression episode severity: moderate Complicated grieving F43.21 Moderate persistent asthma without complication J45.40 Asthma complication type: uncomplicated Panic anxiety syndrome F41.0 Constipation by delayed colonic transit K59.01 History of bilateral oophorectomy Z90.722 Hypertriglyceridemia E78.1 Additional Codes EDITH-7 Assessment Billing - EDITH-7 Assessment Tool: EDITH-7 Assessment 04697 ([id number])
[2023-05-24 14:00] VITALS: BP 158/78; PULSE 88; O2SAT 97; BMI 24.7
== END 2023-05-24 17:06 | disposition home or self-care (01) ==
PROVIDERS: PCP Internal Medicine; Visit Provider Internal Medicine
DX: I10 Essential (primary) hypertension (principal); F33.1 Major depressive disorder, recurrent, moderate; F43.21 Adjustment disorder with depressed mood; Z23 Encounter for immunization; J45.40 Moderate persistent asthma, uncomplicated; F41.0 Panic disorder [episodic paroxysmal anxiety]; K59.01 Slow transit constipation; Z90.722 Acquired absence of ovaries, bilateral; E78.1 Pure hyperglyceridemia
CPT/HCPCS: 90471; 90686; 99214

== ENCOUNTER 2023-07-09 14:56 | Outpatient (AMB) | payer MEDICARE, MEDICAID, SELFPAY ==
--- NOTE | 2023-07-09 14:59 | A.OFFVIS_ITS ---
Intake Vital Signs 07/09/23 15:00 Height 5 ft 1 in Weight 127 lb 13.89 oz BMI 24.2 BP 173/79 H Blood Pressure Location Lt brachial Position Sitting Pulse 95 Intake Visit Reasons: Colonoscopy Screening Intake Note: Tania presents in the office as a colonoscopy screening. CC: No concerns today.v Custom Bike Builder Required: No Allergies Penicillins Allergy (Unknown, Verified 07/09/23 15:05) Unknown lisinopril Adverse Reaction (Unknown, Verified 07/09/23 15:05) cough HPI Colonoscopy Screening HPI Details 63 year old? female with past medical hi story of hyper triglyceridemia asthma, hypertension, depression, status post bilateral oophorectomy is here today for pre colonoscopy screening.? Patient was sent to us by her PCP.? Patient had colonoscopy in October of 2010 at [facility]. Patient denies any gastrointestinal symptoms in the past or at present.? However patient does admit to have occasional constipation. Given script for senna and Colace. Patient is taking that on as needed basis. Denies any personal or family history of gastrointestinal disease or cancer.? Denies history of difficulty with sedation or anesthesia in the past.? Negative for history of sleep apnea.? Denies any history of cardiac, renal, pulmonary, or hepatic disease.?? No history of infectious? diseases like hepatitis A, B, C, HIV or tuberculosis.? Patient is not on any anticoagulation therapy. [facility] Medical History Endometrial cancer Anxiety Depression, major, recurrent Hypertension, essential Surgical History History of esophagogastroduodenoscopy (EGD) Hx of tubal ligation History of colonoscopy History of section Family History Father No problems noted. Mother HTN (hypertension) Diabetes mellitus Sister Metastatic cancer Sister Brain cancer Maternal Grandfather No problems noted. Maternal Grandmother No problems noted. Paternal Grandfather No problems noted. Paternal Grandmother No problems noted. Social History Housing: House Alcohol intake: current Alcohol intake frequency: holidays/special occasions only Patient Tobacco Use Status: Former Tobacco user e-Cigarette/Vaping Use: Never Used Current occupational status: employed Cognitive needs: No Hearing needs: No Vision needs: No Review of Systems Const Denies weight gain and Denies weight loss ENT Reports no additional complaints, Denies dysphagia and Denies odynophagia Card Reports no additional complaints Resp Reports no additional complaints GI Denies abdominal pain, Denies belching, Denies melena, Denies bloating, Denies change in bowel habits, Reports constipation (Occasional, taking senna and Colace), Denies dysphagia, Denies excessive flatus, Denies dyspepsia, Denies heartburn, Denies diarrhea, Denies loose stools, Denies nausea, Denies odynophagia and Denies vomiting Reports no additional complaints Musc Reports no additional complaints Neuro Reports no additional complaints Psych Reports no additional complaints Endo Reports no additional complaints Physical Exam Vital Signs: Last Vital Signs Pulse 95 07/09/23 15:00 BP 173/79 H 07/09/23 15:00 BMI result Body Mass Index 24.2 Const General: healthy appearing, no acute distress and well developed Nutritional Appearance: well nourished Orientation/consciousness: patient oriented x3 Resp Effort & Inspection: normal respiratory effort, able to speak in complete sentences, no tracheal deviation and symmetric chest movement Auscultation: clear to auscultation bilaterally Cardio Rate: regular rate GI Inspection: Yes normal to inspection and No distended Palpation (GI): Soft to palpation, not firm, nontender and No hepatosplenomegaly present Auscultation: normal bowel sounds General: Yes no CVA tenderness Back/Spine/Pelvis Back: no CVA tenderness Skin General skin exam: elasticity normal, turgor normal and dry skin Neuro General: patient oriented x3 Psych Appearance: grossly normal Mental Status: mental status grossly normal Assessment & Plan Assessment & Plan (1) Screen for colon cancer: Code(s): Z12.11 - Encounter for screening for malignant neoplasm of colon (2) Constipation by delayed colonic transit: Code(s): K59.01 - Slow transit constipation Plan Patient denies any GI, cardiac or respiratory symptoms.? Patient does report to have occasional constipation and takes senna with Colace on as needed basis. Patient was encouraged to take it daily minimum 1 week before the procedure. Denies any issues with anesthesia in the past.? Denies any history of sleep apnea.? No history infectious diseases in the past or present.? Not on any anticoagulation therapy.? No family or personal history of colon cancer or polyps.? Patient denies melena, hematochezia, unintentional weight loss or ribbon like stools.? Discussed at length the pre-procedure,? prep, diet & medications as well as what to expect prior, during and after the procedure.?? Stressed the importance of good bowel prep. ?Recommended the use of Vaseline or Calmoseptine OTC & baby wipes with bowel movements to promote comfort.? ?Patient verbalizes understanding and agrees to plan of care.? She was given the opportunity to ask questions and all questions answered.? We will see her after the procedure.? Medications: New polyethylene glycol 3350 (Miralax) As directed by gastroenterology department at [facility] 238 grams PO ONCE 238 grams 0RF Z12.11 - Encounter for screening for malignant neoplasm of colon bisacodyl (Dulcolax (bisacodyl)) take 4 tabs at noon the day before your colonoscopy 20 mg (4 x 5 mg) PO ONCE 1 day 4 tabs 0RF Z12.11 - Encounter for screening for malignant neoplasm of colon Coding Level of Care Code New Pt Level 3 (98709) Diagnoses Screen for colon cancer Z12.11 Constipation by delayed colonic transit K59.01 Time Spent (min) 40 Comment 30 minutes spent with patient and additional 10 minutes spent reviewing her records
[2023-07-09 15:00] VITALS: BP 173/79; PULSE 95; BMI 24.2
== END 2023-07-09 15:45 | disposition home or self-care (01) ==
PROVIDERS: PCP Internal Medicine; Visit Provider Nurse Practitioner Family
DX: K59.01 Slow transit constipation (principal); Z12.11 Encounter for screening for malignant neoplasm of colon
CPT/HCPCS: 99203

== ENCOUNTER → 2023-07-09 14:56 | Outpatient (BNVA) | payer MEDICARE, MEDICAID, SELFPAY | PROVIDERS: PCP Internal Medicine; Visit Provider Nurse Practitioner Family | DX: Z01.818 Encounter for other preprocedural examination (principal); K59.01 Slow transit constipation | CPT/HCPCS: 99202 ==

== ENCOUNTER 2023-07-19 14:40 | Outpatient (AMB) | payer MEDICARE, MEDICAID, SELFPAY ==
[2023-07-19 14:44] VITALS: BP 160/70; PULSE 97; TEMP 36.6; O2SAT 98; BMI 23.0
--- NOTE | 2023-07-19 14:44 | MHC.OFFWIV ---
Intake Vital Signs 07/19/23 14:44 Height 5 ft 1 in Weight 122 lb BMI 23.0 BP 160/70 H Blood Pressure Location Lt brachial Position Sitting Pulse 97 Pulse Source Pulse Oximeter Temp 97.9 F Temp Source Temporal Artery Scan Pulse Oximetry (%) 98 Intake Visit Reasons: EST/back/leg pain (lobby) Intake Note: pt is here today for back leg pain started 2 weeks ago Patient Tobacco Use Status: Former Tobacco user Allergies Penicillins Allergy (Unknown, Verified 07/19/23 14:45) Unknown lisinopril Adverse Reaction (Unknown, Verified 07/19/23 14:45) cough Do you need a note to return to daycare/school/sports/work: Yes HPI HPI Comments History of Present Illness Details This is a 63-year-old female who presented to the office today complaining of right-sided low back pain radiating into her right lower extremity x2 weeks. 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 She states the pain starts in her right low back and radiating down her posterior/lateral into her anterior tobar. She denies any numbness/weakness/paresthesias of her lower extremity. She denies any bowel/bladder incontinence/retention. She denies any saddle anesthesias. [facility] Medical History Endometrial cancer Anxiety Depression, major, recurrent Hypertension, essential Surgical History History of esophagogastroduodenoscopy (EGD) Hx of tubal ligation History of colonoscopy History of section Family History Father No problems noted. Mother HTN (hypertension) Diabetes mellitus Sister Metastatic cancer Sister Brain cancer Maternal Grandfather No problems noted. Maternal Grandmother No problems noted. Paternal Grandfather No problems noted. Paternal Grandmother No problems noted. Social History Housing: House Alcohol intake: current Alcohol intake frequency: holidays/special occasions only Patient Tobacco Use Status: Former Tobacco user e-Cigarette/Vaping Use: Never Used Current occupational status: employed Cognitive needs: No Hearing needs: No Vision needs: No Review of Systems Const All systems reviewed & are unremarkable except as noted in HPI and below Reports no additional complaints Eyes Reports no additional complaints ENT Reports no additional complaints Card Reports no additional complaints Resp Reports no additional complaints GI Reports no additional complaints Reports no additional complaints Musc Reports no additional complaints Skin/Breast Reports system reviewed and no additional complaints, except as documented Neuro Reports no additional complaints Psych Reports no additional complaints Endo Reports no additional complaints Yanick/Lymph Reports no additional complaints Aller/Immun Reports no additional complaints Physical Exam Vital Signs: Last Vital Signs Temp 97.9 F 07/19/23 14:44 Pulse 97 07/19/23 14:44 BP 160/70 H 07/19/23 14:44 Pulse Ox 98 07/19/23 14:44 BMI result Body Mass Index 23.0 Const Other: Vital signs reviewed. Constitutional: Non-toxic appearing. No acute distress. Well-developed and well-nourished. HEENT: Normocephalic and atraumatic. Skin: Warm and dry. No rashes or lesions noted. Neck: Full and painless range of motion. No cervical lymphadenopathy. Cardio: Regular rate. No lower extremity edema. No JVD. Pulmonary: No respiratory distress. No accessory muscle usage. Gastrointestinal: Soft, nontender, and nondistended in all 4 quadrants. Musculoskeletal: Normal range of motion in joints throughout the body. No deformity or other signs of injury. She has tenderness to palpation of the right lumbar paraspinal musculature and right sacroiliac region. Her deep tendon reflexes are 2+ bilaterally. Neuro: Alert and oriented x4. Cranial nerves 2-12 grossly intact. No focal deficits appreciated. Psych: Normal mood and affect. Assessment & Plan Assessment & Plan (1) Lumbar radiculopathy, right: Code(s): M54.16 - Radiculopathy, lumbar region Plan: This is a 63-year-old female who presented to the walk-in clinic today complaining of right-sided low back pain radiating into her right lower extremity. Patient is explaining symptoms consistent with right-sided lumbar radiculopathy. Recommended symptomatic management including rest/activity modification, heating pad to the area, and continue with acetaminophen/ibuprofen for pain management as long as patient has no medical contraindications. Patient was given a prescription for PO methocarbamol 75mg three times daily as needed for muscle spasm. She was instructed to follow up with her PCP if her symptoms persist for possible imaging such as CT lumbar spine. Patient advised to follow up here or proceed to the emergency room for persistent/worsening symptoms such as red flag symptoms as detailed above. Patient verbalized understanding and is agreeable with the plan. Medications: New methocarbamol 750 mg PO Q8H PRN 20 tabs 0RF muscle spasm ibuprofen 800 mg PO Q8H 15 tabs 0RF Coding Level of Care Code Est Pt Level 3 (01452) Diagnoses Lumbar radiculopathy, right M54.16
== END 2023-07-19 16:13 | disposition home or self-care (01) ==
PROVIDERS: PCP Internal Medicine; Visit Provider Physician Assistant Medical
DX: M54.16 Radiculopathy, lumbar region (principal)
CPT/HCPCS: 99213

== ENCOUNTER 2023-09-13 14:13 | Outpatient (AMB) | payer MEDICARE, MEDICAID, SELFPAY ==
--- NOTE | 2023-09-13 14:18 | MHC.PC.OV ---
Vital Signs 09/13/23 14:19 Height 5 ft 1 in Weight 125 lb BMI 23.6 BP 124/76 Blood Pressure Location Rt brachial Position Sitting Pulse 78 Pulse Source Pulse Oximeter Pulse Oximetry (%) 96 Oxygen Delivery Method Room Air Intake Visit Reasons: Blood Pressure~ Allergies Penicillins Allergy (Unknown, Verified 09/13/23 14:18) Unknown lisinopril Adverse Reaction (Unknown, Verified 09/13/23 14:18) cough Medication List - Last Reconciled 09/13/23 by Erika Vyas MD acetaminophen 500 mg PO Q6H PRN 90 days albuterol sulfate 90 mcg/actuation (Ventolin HFA) 1 inh inhalation QID PRN 30 days albuterol sulfate 0.63 mg (3 mL) inhalation QID PRN 90 days cholecalciferol (vitamin D3) 50 mcg PO DAILY 90 days fenofibrate nanocrystallized 145 mg PO DAILY fluticasone propionate 250 mcg/actuation (Flovent Diskus) 1 inh inhalation BID 90 days ibuprofen 800 mg PO Q8H lorazepam 0.5 mg PO DAILY PRN losartan-hydrochlorothiazide 100-25 mg 1 tab PO DAILY 90 days methocarbamol 500 mg PO Q8H PRN polyethylene glycol 3350 (Miralax) 238 grams PO ONCE Tobacco use date assessed: 09/13/23 Fall risk assessment: No Falls in past year Last assessed Fall Risk: 09/13/23 Dental Screening Dental Screen Date: 09/13/23 Did you have a dental visit in the last 12 months?: No Was dental information given to patient?: Patient has dentist HPI Blood Pressure~ HPI Details Patient is 63-year-old female came in today for her regular follow-up appointment Patient is taking care of her nephew who had a car accident and he has 8-month-old baby as well Patient is feeling very tired due to lack of sleep Patient suffer from asthma , which has been stable with Flovent inhaler Blood pressure is stable with losartan hydrochlorothiazide 100-25 mg once a day Due for labs to be done today Patient is slightly anemic as well be bili continue to monitor Lipid disorder with high triglycerides continue fenofibrate She is going in for colonoscopy end of October [facility] Medical History Endometrial cancer Anxiety Depression, major, recurrent Hypertension, essential Surgical History History of esophagogastroduodenoscopy (EGD) Hx of tubal ligation History of colonoscopy History of section Family History Father No problems noted. Mother HTN (hypertension) Diabetes mellitus Sister Metastatic cancer Sister Brain cancer Maternal Grandfather No problems noted. Maternal Grandmother No problems noted. Paternal Grandfather No problems noted. Paternal Grandmother No problems noted. Social History Housing: House Alcohol intake: current Alcohol intake frequency: holidays/special occasions only Patient Tobacco Use Status: Former Tobacco user e-Cigarette/Vaping Use: Never Used service: No Current occupational status: employed Cognitive needs: No Hearing needs: No Vision needs: No Questionnaire Thrive Questionnaire Date Thrive assessed: 05/24/23 AUDIT C Alcohol Use Questionnaire (AUDIT-C) 1. How often do you have a drink containing alcohol?: Monthly or less 2. How many drinks containing alcohol do you have on a typical day when you are drinking?: 1 or 2 3. How often do you have six or more drinks on one occasion?: Never Total Score: 1 Score Reviewed/Action Taken: Yes EDITH-7 AMB Questionnaire EDITH-7 Date EDITH - 7 assessed: 05/24/23 Source: Developed by Drs. Russell Ascencio, Akanksha Schroeder, Binu Jesus and colleagues, with an educational mayur from [employer]. Review of Systems Const Denies chills and Denies fever(s) ENT Denies epistaxis and Denies nasal discharge Card Denies chest pain Resp Denies chest congestion, Denies cough and Denies hemoptysis GI Denies diarrhea and Denies nausea Skin/Breast Denies rash Neuro Reports no additional complaints Psych Reports no additional complaints Endo Reports no additional complaints Physical exam (Primary Care) Vital Signs: Last Vital Signs Pulse 78 09/13/23 14:19 BP 124/76 09/13/23 14:19 Pulse Ox 96 09/13/23 14:19 Oxygen Delivery Method Room Air 09/13/23 14:19 BMI result Body Mass Index 23.6 Tobacco/Smoking Status: Tobacco use Status Tobacco use date assessed 09/13/23 09/13/23 14:23 Patient Tobacco Use Status Former Tobacco user 09/13/23 14:23 e-Cigarette/Vaping Use Never Used 09/13/23 14:23 Thrive Assessment: Date of Thrive Assessment Date Thrive assessed 05/24/23 09/13/23 14:23 Const General: cooperative, comfortable and no acute distress Orientation/consciousness: patient oriented x3 HENMT Head: Yes normocephalic Eyes General: appearance normal, both eyes and all related structures Neck Neck: Yes supple Resp Effort & Inspection: normal respiratory effort, no cough and no stridor Cardio Rhythm: regular rhythm Heart sounds: S1 normal heart sound present and S2 normal heart sound present Skin General skin exam: turgor normal Neuro General: patient oriented x3, tone normal and moves all extremities Extrem Right lower extremity: no edema Left lower extremity: no edema Assessment and Plan Assessment & Plan (1) Hypertension, essential: Code(s): I10 - Essential (primary) hypertension (2) Depression, major, recurrent: Code(s): F33.9 - Major depressive disorder, recurrent, unspecified Qualifiers: Active/Remission status: currently active Major depression episode severity: moderate Qualified Code(s): F33.1 - Major depressive disorder, recurrent, moderate (3) Asthma, moderate persistent: Code(s): J45.40 - Moderate persistent asthma, uncomplicated Qualifiers: Asthma complication type: uncomplicated Qualified Code(s): J45.40 - Moderate persistent asthma, uncomplicated (4) Panic anxiety syndrome: Code(s): F41.0 - Panic disorder [episodic paroxysmal anxiety] (5) Anemia: Code(s): D64.9 - Anemia, unspecified Qualifiers: Anemia type: iron deficiency Iron deficiency anemia type: other iron deficiency Qualified Code(s): D50.8 - Other iron deficiency anemias Plan Patient is 63-year-old female came in today for her regular follow-up appointment Patient is taking care of her nephew who had a car accident and he has 8-month-old baby as well Patient is feeling very tired due to lack of sleep Patient suffer from asthma , which has been stable with Flovent inhaler Blood pressure is stable with losartan hydrochlorothiazide 100-25 mg once a day Due for labs to be done today Patient is slightly anemic as well be bili continue to monitor Lipid disorder with high triglycerides continue fenofibrate She is going in for colonoscopy end of October Orders: Orders Comprehensive Met. Panel Today D64.9 - Anemia, unspecified, F33.9 - Major depressive disorder, recurrent, unspecified, F41.0 - Panic disorder [episodic paroxysmal anxiety], I10 - Essential (primary) hypertension, J45.40 - Moderate persistent asthma, uncomplicated Complete Blood Count Auto Diff Today D64.9 - Anemia, unspecified, F33.9 - Major depressive disorder, recurrent, unspecified, F41.0 - Panic disorder [episodic paroxysmal anxiety], I10 - Essential (primary) hypertension, J45.40 - Moderate persistent asthma, uncomplicated LDL Cholesterol Direct Today D64.9 - Anemia, unspecified, F33.9 - Major depressive disorder, recurrent, unspecified, F41.0 - Panic disorder [episodic paroxysmal anxiety], I10 - Essential (primary) hypertension, J45.40 - Moderate persistent asthma, uncomplicated Ferritin Today D64.9 - Anemia, unspecified, F33.9 - Major depressive disorder, recurrent, unspecified, F41.0 - Panic disorder [episodic paroxysmal anxiety], I10 - Essential (primary) hypertension, J45.40 - Moderate persistent asthma, uncomplicated Coding Level of Care Code Est Pt Level 4 (20219) Diagnoses Hypertension, essential I10 Moderate episode of recurrent major depressive disorder F33.1 Active/Remission status: currently active Major depression episode severity: moderate Moderate persistent asthma without complication J45.40 Asthma complication type: uncomplicated Panic anxiety syndrome F41.0 Other iron deficiency anemia D50.8 Anemia type: iron deficiency Iron deficiency anemia type: other iron deficiency
[2023-09-13 14:19] VITALS: BP 124/76; PULSE 78; O2SAT 96; BMI 23.6
== END 2023-09-13 15:25 | disposition home or self-care (01) ==
PROVIDERS: PCP Internal Medicine; Visit Provider Internal Medicine
DX: I10 Essential (primary) hypertension (principal); F33.1 Major depressive disorder, recurrent, moderate; J45.40 Moderate persistent asthma, uncomplicated; F41.0 Panic disorder [episodic paroxysmal anxiety]; D50.8 Other iron deficiency anemias
CPT/HCPCS: 99214

== ENCOUNTER 2023-09-13 14:31 | Outpatient (REF) | payer MEDICARE, MEDICAID, SELFPAY ==
[2023-09-13 16:45] LABS: MANUAL DIFF FLAG NO
[2023-09-13 17:13] LABS: Alanine Aminotransferase 156 U/L (0-31); Albumin Level 4.4 g/dL (3.5-5.0); Alkaline Phosphatase 54 U/L (39-117); Anion Gap 11 (12-20); Aspartate Amino Transferase 124 U/L (5-31); Bilirubin Total 0.6 mg/dL (0.0-1.0); Blood Urea Nitrogen 20 mg/dL (9-16); Calcium 10.7 mg/dL (8.4-10.2); Carbon Dioxide 25 mmol/L (22-29); Chloride 105 mmol/L (96-108); Estimated Glomerular Filt Rate > 60; Glucose Random 97 mg/dL (60-115); Potassium 3.4 mmol/L (3.3-5.1); Sodium 138 mmol/L (135-145); Total Protein 7.2 g/dL (6.5-8.0)
[2023-09-13 17:22] LABS: Basophils Absolute Auto 0.1 X10*3/uL (0.0-0.2); Basophils Percent Auto 1.2 % (0-2); Eosinophils Absolute Auto 0.1 X10*3/uL (0.0-0.4); Eosinophils Percent Auto 2.8 % (0-4); Hematocrit 37.8 % (37.0-47.0); Hemoglobin 12.3 g/dl (12.0-16.0); Lymphocytes Absolute Auto 1.8 X10*3/uL (1.2-4.9); Lymphocytes Percent Auto 42.8 % (20-40); Mean Corpuscular HGB Conc 32.5 g/dl (31.0-35.0); Mean Corpuscular Hemoglobin 26.3 pg (27.0-33.0); Mean Corpuscular Volume 80.8 fL (80.0-98.0); Mean Platelet Volume 11.4 fL (9.4-12.3); Monocytes Absolute Auto 0.4 X10*3/uL (0.1-1.2); Monocytes Percent Auto 9.8 % (2-11); Neutrophils Absolute Auto 1.9 x10*3/uL (2.0-8.3); Neutrophils Percent Auto 43.4 % (45-73); Platelet Count 285 X10*3/uL (160-400); Red Blood Count 4.68 X10*6/uL (4.20-5.50); Red Cell Distribution Width 13.9 % (11.0-16.0); White Blood Count 4.3 X10*3/uL (4.8-10.8)
[2023-09-13 17:31] LABS: Ferritin 312 ng/mL (10-250)
[2023-09-14 09:28] LABS: LDL Cholesterol Direct 95 mg/dL (<100)
== END 2023-09-13 14:32 | disposition home or self-care (01) ==
LOC: HO.HMGCLDS 14:31
PROVIDERS: PCP Internal Medicine; Visit Provider Internal Medicine
DX: I10 Essential (primary) hypertension (principal); F33.9 Major depressive disorder, recurrent, unspecified; J45.40 Moderate persistent asthma, uncomplicated; F41.0 Panic disorder [episodic paroxysmal anxiety]; D64.9 Anemia, unspecified
CPT/HCPCS: 36415; 80053; 82728; 83721; 85025

== ENCOUNTER → 2023-11-05 09:12 | Day surgery (SDC) | payer MEDICARE, MEDICAID, SELFPAY ==
--- NOTE | 2023-11-01 14:25 | HO.ANESPROP2 ---
Documented by User: Jessica Gama NP 11/01/23 14:25 HPI - Anesthesia Eval Consult details Narrative: 63yo F for Colonoscopy PMFSH Active Problems Active Problems: All Active Problems Anemia (Acute) Hypertriglyceridemia (Acute) History of bilateral oophorectomy (Acute) Constipation by delayed colonic transit (Acute) Colonic polyp (Acute) Complex ovarian cyst (Acute) Encounter for general adult medical examination with abnormal findings (Acute) Postmenopausal bleeding (Acute) Hospital discharge follow-up (Acute) Bilateral hand pain (Acute) Panic anxiety syndrome (Acute) Shoulder pain, right (Acute) Asthma, moderate persistent (Acute) Uncontrolled hypertension (Acute) Complicated grieving (Acute) Low back pain (Acute) Right lumbar radiculitis (Acute) Depression, major, recurrent (Acute) Hypertension, essential (Acute) Past Medical History Medical History Endometrial cancer Anxiety Depression, major, recurrent Hypertension, essential Family History Family History Father No problems noted. Mother HTN (hypertension) Diabetes mellitus Sister Metastatic cancer Sister Brain cancer Maternal Grandfather No problems noted. Maternal Grandmother No problems noted. Paternal Grandfather No problems noted. Paternal Grandmother No problems noted. Family history of problems with anesthesia: No Surgical History Surgical History History of esophagogastroduodenoscopy (EGD) Hx of tubal ligation History of colonoscopy History of section History of Problems with Anesthesia: No Social History Social History Housing: House Alcohol intake: current Alcohol intake frequency: holidays/special occasions only Patient Tobacco Use Status: Former Tobacco user e-Cigarette/Vaping Use: Never Used Use of substances other than those prescribed or required for medical reasons: No Are you DNR?: No Advance Directives: No Advance Directives Information Provided: Yes service: No Current occupational status: employed Cognitive needs: No Hearing needs: No Vision needs: No Meds Allergies Allergy/AdvReac Type Severity Reaction Status Date / Time Penicillins Allergy Unknown Unknown Verified 09/13/23 14:18 lisinopril AdvReac Unknown cough Verified 09/13/23 14:18 Assessment and Plan Assessment Anesthesia Assessment: Chart Reviewed Final Anesthetic Review Family History of Problems with Anesthesia: No History of Problems with Anesthesia: No Documented by User: Marybel Peck MD 11/05/23 12:02 [facility] Past Medical History Medical History Endometrial cancer Anxiety Depression, major, recurrent Hypertension, essential Family History Family History Father No problems noted. Mother HTN (hypertension) Diabetes mellitus Sister Metastatic cancer Sister Brain cancer Maternal Grandfather No problems noted. Maternal Grandmother No problems noted. Paternal Grandfather No problems noted. Paternal Grandmother No problems noted. Surgical History Surgical History History of esophagogastroduodenoscopy (EGD) Hx of tubal ligation History of colonoscopy History of section Social History Social History Housing: House Alcohol intake: current Alcohol intake frequency: holidays/special occasions only Patient Tobacco Use Status: Former Tobacco user e-Cigarette/Vaping Use: Never Used Use of substances other than those prescribed or required for medical reasons: No Are you DNR?: No Advance Directives: No Advance Directives Information Provided: Yes service: No Current occupational status: employed Cognitive needs: No Hearing needs: No Vision needs: No Meds Allergies Allergy/AdvReac Type Severity Reaction Status Date / Time Penicillins Allergy Unknown Unknown Verified 09/13/23 14:18 lisinopril AdvReac Unknown cough Verified 09/13/23 14:18 Exam Airway Mallampati Class: II TM Dist: >3cm Neck ROM: Full Heart: rrr Lungs: cta Assessment and Plan Assessment Anesthesia Assessment: Anesthesia Plan Discussed Final Anesthetic Review NPO: Yes ASA Class: III Final Preanesthetic Review: No Changes in Pt Med Stat, Meds/Allgs Chart Reviewed, Consent Obtained/Reviewed and Anes Risks/Benef Reviewed Patient Risk: Intermediate Procedure Risk: Low Anesthetic Plan Anesthetic Plan: MAC: Disposition: Standard PACU
--- NOTE | 2023-11-05 | ECG_ITS ---
Test Reason : ST DEPRESSION Blood Pressure : / mmHG Vent. Rate : 062 BPM Atrial Rate : 062 BPM P-R Int : 154 ms QRS Dur : 080 ms QT Int : 472 ms P-R-T Axes : 062 039 115 degrees QTc Int : 479 ms Normal sinus rhythm ST & T wave abnormality, consider anterolateral ischemia Prolonged QT Abnormal ECG When compared with ECG of 05-NOV-2023 11:50, T wave inversion now evident in Anterolateral leads Referred By: Nini Ibrahim Electronically Signed By:SAEED JUAREZ MD
[2023-11-05 10:57] VITALS: PULSE 84; RESP 18; TEMP 36.1; O2SAT 98; BMI 23.4
[2023-11-05] MEDS: Lactated Ringers 1,000 ML 100 ML IVCONT (11:33)
--- NOTE | 2023-11-05 11:34 | P.HPSUR_ITS ---
Pre-Procedural Eval Section A - 24 Hr Update-Section A only Date of Service: 11/05/23 Section B - Complete if H&P > 30 days Chief Complaint: Encounter for screening for malignant neoplasm of Relevant Family History (Specify if Yes): No Relevant Social History: None Present Medications: see Short Stay Collaborative assessment Medical History: Significant History (Endometrial cancer Anxiety Depression, m ajor, recurrent Hypertension, essential) History of Previous Operations: Relevant previous surgery/procedure and date(s) (History of esophagogastroduodenoscopy (EGD) Hx of tubal ligation History of colonoscopy History of section) Allergies: Allergies Allergy/AdvReac Type Severity Reaction Status Date / Time Penicillins Allergy Unknown Unknown Verified 09/13/23 14:18 lisinopril AdvReac Unknown cough Verified 09/13/23 14:18 Review of Systems Sugical H&P ROS: Negative: Constitution, Cardiovascular, Respiratory, Neurological, Psychiatric, Hem-Onc, Allergic/Immunologic, Gastrointestinal, Genitourinary, Musculoskeletal, Integumentary, Endocrine and Eyes/Ears/Nose/Throat Exam Surgical H&P Exam: Normal: HEENT, Normal: Heart, Normal: Lungs, Normal: Extremities, Normal: Abdomen, Normal: Skin and Normal: Neurological Plan Diagnosis/Plan: Unchanged I have reviewed the history and physical and performed a pertinent physical examination on my patient. No changes have occurred unless specified. Time Spent With Patient Time: Total time managing care of this patient today ____ minutes.
--- NOTE | 2023-11-05 11:44 | ECG_ITS ---
Test Reason : ST DEPRESSION Blood Pressure : / mmHG Vent. Rate : 066 BPM Atrial Rate : 066 BPM P-R Int : 152 ms QRS Dur : 078 ms QT Int : 472 ms P-R-T Axes : 057 034 100 degrees QTc Int : 494 ms Normal sinus rhythm Nonspecific ST and T wave abnormality Prolonged QT Abnormal ECG When compared to the previous EKG of ST depression is noted in AL leads Referred By: Marybel Peck Electronically Signed By:SAEED JUAREZ MD
--- NOTE | 2023-11-05 13:14 | PM.EVENT ---
Event Note Date of Service: 11/05/23 Event Note: Telemetry changes on the monitor just before starting the colonoscopy with deep St depression, patient denies chest pain, and has no symptoms, procedure aborted. Will watch in pos top and refer o/p cardiology. Time Spent With Patient Time: Total time managing care of this patient today ____ minutes.
[2023-11-05 13:30] VITALS: BP 122/63; PULSE 72; RESP 16; O2SAT 99
--- NOTE | 2023-11-05 13:58 | PC.NURSE ---
Procedure aborted due to ST changes. Pt did not get any medications. Pt is a/ox4, resp nonlabored, denies chest pain or diff breathing, speaking full sentences. Called for EKG and Dr. Charles called for a cardio consult.
--- NOTE | 2023-11-05 14:31 | PC.NURSE ---
Dr Gibbs evaluated pt and ok to go home and have outpt testing. Pt remains with no c/o
[2023-11-05 14:32] VITALS: BP 130/60; PULSE 71; RESP 16; O2SAT 100
--- NOTE | 2023-11-05 21:20 | PM.CNCAR ---
History of Present Illness History of Present Illness Date of Service: 11/05/23 Requesting physician: Marybel Peck Chief complaint: Abnormal ECG Narrative: [age] year female came for routine colonoscopy and was noted to have abnormal ECG. She has background history of hypertension which has been well controlled with medications. She previously had colonic polyps and is here for routine colonoscopy. She has no chest discomfort or shortness of breath. In her day-to-day life he does not get any significant symptoms. Her EKG is showing lateral ST depressions and changes are likely due to left ventricular hypertrophy and strain. Discussing with her she does not have any significant symptoms currently. [facility] Past Medical History Medical History Endometrial cancer Anxiety Depression, major, recurrent Hypertension, essential Family History Family History Father No problems noted. Mother HTN (hypertension) Diabetes mellitus Sister Metastatic cancer Sister Brain cancer Maternal Grandfather No problems noted. Maternal Grandmother No problems noted. Paternal Grandfather No problems noted. Paternal Grandmother No problems noted. Surgical History Surgical History History of esophagogastroduodenoscopy (EGD) Hx of tubal ligation History of colonoscopy History of section Social History Social History Housing: House Alcohol intake: current Alcohol intake frequency: holidays/special occasions only Patient Tobacco Use Status: Former Tobacco user e-Cigarette/Vaping Use: Never Used Use of substances other than those prescribed or required for medical reasons: No Are you DNR?: No Advance Directives: No Advance Directives Information Provided: Yes service: No Current occupational status: employed Cognitive needs: No Hearing needs: No Vision needs: No Meds Allergies Allergy/AdvReac Type Severity Reaction Status Date / Time Penicillins Allergy Unknown Unknown Verified 09/13/23 14:18 lisinopril AdvReac Unknown cough Verified 09/13/23 14:18 Active Medications: Current Medications Albuterol Sulfate (Albuterol Sulfate (0.083%) 2.5 Mg/3 Ml Vial.Neb) 2.5 mg INHALE ONCE PRN PRN Reason: Shortness of Breath/Wheezing Lactated Ringer's (Lr) 1,000 mls @ 100 mls/hr IVCONT .Q10H HERI Last Admin: 11/05/23 11:33 Dose: 100 mls/hr Physical Exam Vital Signs: Vital Signs: Last Vital Signs Temp 97.0 F 11/05/23 10:57 Pulse 71 11/05/23 14:32 Resp 16 11/05/23 14:32 BP 130/60 11/05/23 14:32 Pulse Ox 100 11/05/23 14:32 O2 Del Method Room Air 11/05/23 14:32 BMI result Body Mass Index 23.4 GENERAL APPEARANCE: in no acute distress, pleasant. NECK: no carotid bruit, no jugular venous distention. SKIN: no suspicious lesions, warm and dry. HEART: no murmurs, regular rate and rhythm. LUNGS: clear to auscultation bilaterally. ABDOMEN: soft, nontender. EXTREMITIES: no edema. PERIPHERAL PULSES: equal. NEUROLOGIC: No gross deficits, AAO X 3 Assessment and Plan (1) Abnormal ECG: Status: Acute Plan Abnormal ECG in the 63-year-old female who is here for routine colonoscopy. She is clinically asymptomatic. Due to EKG changes the colonoscopy was canceled. I think these changes are due to left ventricular hypertrophy but this needs further. We will arrange an echocardiogram to assess for left ventricular hypertrophy as well as wall motion abnormality. Will also arrange exercise Mibi to assess for any ischemia. After that she can return for routine colonoscopy. Thank you for allowing me to participate in the care of your patient. Please feel free to contact me if you have any questions. Procedures Date of Service Date of Service: 11/05/23
== END ==
PROVIDERS: PCP Internal Medicine; Visit Provider Internal Medicine Gastroenterology
DX: Z12.11 Encounter for screening for malignant neoplasm of colon (principal); Z53.8 Procedure and treatment not carried out for other reasons; R94.31 Abnormal electrocardiogram [ECG] [EKG]
CPT/HCPCS: 93005; J2704

== ENCOUNTER → 2023-11-05 09:12 | Outpatient (BNV) | payer MEDICARE, MEDICAID, SELFPAY | PROVIDERS: PCP Internal Medicine; Visit Provider Internal Medicine Cardiovascular Disease | DX: R94.31 Abnormal electrocardiogram [ECG] [EKG] (principal) | CPT/HCPCS: 93010; 99223 ==

== ENCOUNTER 2023-11-06 14:46 | Outpatient (AMB) | payer MEDICARE, MEDICAID, SELFPAY ==
[2023-11-06 14:48] VITALS: BP 138/66; PULSE 91; O2SAT 97; BMI 23.3
--- NOTE | 2023-11-06 14:48 | A.OFFPC_ITS ---
Vital Signs 11/06/23 14:48 Height 5 ft 2 in Weight 127 lb 6 oz BMI 23.3 BP 138/66 Blood Pressure Location Lt brachial Position Sitting Pulse 91 Pulse Source Pulse Oximeter Pulse Oximetry (%) 97 Oxygen Delivery Method Room Air Intake Visit Reasons: Same day per Allergies Penicillins Allergy (Unknown, Verified 11/06/23 14:49) Unknown lisinopril Adverse Reaction (Unknown, Verified 11/06/23 14:49) cough Medication List - Last Reconciled 11/06/23 by Erika Vyas MD acetaminophen 500 mg PO Q6H PRN 90 days albuterol sulfate 90 mcg/actuation (Ventolin HFA) 1 inh inhalation QID PRN 30 days albuterol sulfate 0.63 mg (3 mL) inhalation QID PRN 90 days cholecalciferol (vitamin D3) 50 mcg PO DAILY 90 days fenofibrate nanocrystallized 145 mg PO DAILY fluticasone propionate 250 mcg/actuation (Flovent Diskus) 1 inh inhalation BID 90 days ibuprofen 800 mg PO Q8H lorazepam 0.5 mg PO DAILY PRN losartan-hydrochlorothiazide 100-25 mg 1 tab PO DAILY 90 days methocarbamol 500 mg PO Q8H PRN Tobacco use date assessed: 11/06/23 Fall risk assessment: No Falls in past year Last assessed Fall Risk: 11/06/23 Dental Screening Dental Screen Date: 11/06/23 Did you have a dental visit in the last 12 months?: Yes Did you have a dental problem in the last 6 months where you did not have access to dental care?: No Was dental information given to patient?: Patient has dentist HPI Same day per HPI Details Patient is 63-year-old female was scheduled to have colonoscopy yesterday in-hospital While she was being prepared , stencil cutter machine start showing T-wave inversion Colonoscopy was canceled and Cardiology Dr. Gibbs was consulted Patient woke up she had no chest pains or any symptoms Cardiology recommended no treatment at that time, but to have a follow-up as an outpatient Patient has been scheduled appointment with cardiology next month She wanted to talk about this event with me so came in Explained to her what happened, I am prescribing nitroglycerin just in case if she starts having any heaviness in her chest she is to take that and called 911 to go to emergency room She also need paperwork filled for TB assessment. Patient is asymptomatic at this time, blood pressure controlled Taking all her medications [facility] Medical History Endometrial cancer Anxiety Depression, major, recurrent Hypertension, essential Surgical History History of esophagogastroduodenoscopy (EGD) Hx of tubal ligation History of colonoscopy History of section Family History Father No problems noted. Mother HTN (hypertension) Diabetes mellitus Sister Metastatic cancer Sister Brain cancer Maternal Grandfather No problems noted. Maternal Grandmother No problems noted. Paternal Grandfather No problems noted. Paternal Grandmother No problems noted. Social History Housing: House Alcohol intake: current Alcohol intake frequency: holidays/special occasions only Patient Tobacco Use Status: Former Tobacco user e-Cigarette/Vaping Use: Never Used service: No Current occupational status: employed Cognitive needs: No Hearing needs: No Vision needs: No Questionnaire Thrive Questionnaire Date Thrive assessed: 05/24/23 AUDIT C Alcohol Use Questionnaire (AUDIT-C) 1. How often do you have a drink containing alcohol?: Monthly or less 2. How many drinks containing alcohol do you have on a typical day when you are drinking?: 1 or 2 3. How often do you have six or more drinks on one occasion?: Never Total Score: 1 Score Reviewed/Action Taken: Yes EDITH-7 AMB Questionnaire EDITH-7 Date EDITH - 7 assessed: 05/24/23 Source: Developed by Drs. Russell Ascencio, Akanksha Schroeder, Binu Jesus and colleagues, with an educational mayur from [employer]. Review of Systems Const Denies chills and Denies fever(s) ENT Denies epistaxis and Denies nasal discharge Card Denies chest pain Resp Denies chest congestion, Denies cough and Denies hemoptysis GI Denies diarrhea and Denies nausea Skin/Breast Denies rash Neuro Reports no additional complaints Psych Reports no additional complaints Endo Reports no additional complaints Physical exam (Primary Care) Vital Signs: Last Vital Signs Pulse 91 11/06/23 14:48 BP 138/66 05/22/24 14:48 Pulse Ox 97 11/06/23 14:48 Oxygen Delivery Method Room Air 11/06/23 14:48 BMI result Body Mass Index 23.3 Tobacco/Smoking Status: Tobacco use Status Tobacco use date assessed 11/06/23 11/06/23 14:50 Patient Tobacco Use Status Former Tobacco user 11/06/23 14:50 e-Cigarette/Vaping Use Never Used 11/06/23 14:50 Thrive Assessment: Date of Thrive Assessment Date Thrive assessed 05/24/23 11/06/23 14:50 Const General: cooperative, comfortable and no acute distress Orientation/consciousness: patient oriented x3 HENMT Head: Yes normocephalic Eyes General: appearance normal, both eyes and all related structures Neck Neck: Yes supple Resp Effort & Inspection: normal respiratory effort, no cough and no stridor Cardio Rhythm: regular rhythm Heart sounds: S1 normal heart sound present and S2 normal heart sound present Skin General skin exam: turgor normal Neuro General: patient oriented x3, tone normal and moves all extremities Extrem Right lower extremity: no edema Left lower extremity: no edema Assessment and Plan Assessment & Plan (1) T wave inversion in EKG: Code(s): R94.31 - Abnormal electrocardiogram [ECG] [EKG] (2) Screening-pulmonary TB: Code(s): Z11.1 - Encounter for screening for respiratory tuberculosis (3) Panic anxiety syndrome: Code(s): F41.0 - Panic disorder [episodic paroxysmal anxiety] Plan Patient is 63-year-old female was scheduled to have colonoscopy yesterday in- hospital While she was being prepared , stencil cutter machine start showing T-wave inversion Colonoscopy was canceled and Cardiology Dr. Gibbs was consulted Patient woke up she had no chest pains or any symptoms Cardiology recommended no treatment at that time, but to have a follow-up as an outpatient Patient has been scheduled appointment with cardiology next month She wanted to talk about this event with me so came in Explained to her what happened, I am prescribing nitroglycerin just in case if she starts having any heaviness in her chest she is to take that and called 911 to go to emergency room She also need paperwork filled for TB assessment. Patient is asymptomatic at this time, blood pressure controlled Taking all her medications Orders: Referrals Cardiology Referral R94.31 - Abnormal electrocardiogram [ECG] [EKG], Z11.1 - Encounter for screening for respiratory tuberculosis Medications: New nitroglycerin do not exceed 3 doses per episode 0.3 mg sublingual Q5M PRN 10 tabs 0RF chest pain Coding Level of Care Code Est Pt Level 4 (43130) Diagnoses T wave inversion in EKG R94.31 Screening-pulmonary TB Z11.1 Panic anxiety syndrome F41.0
== END 2023-11-06 15:42 | disposition home or self-care (01) ==
LOC: HO.HMGC 14:46
PROVIDERS: PCP Internal Medicine; Visit Provider Internal Medicine
DX: R94.31 Abnormal electrocardiogram [ECG] [EKG] (principal); Z11.1 Encounter for screening for respiratory tuberculosis; F41.0 Panic disorder [episodic paroxysmal anxiety]
CPT/HCPCS: 99214

== ENCOUNTER 2023-11-20 10:42 | Outpatient (AMB) | payer MEDICARE, MEDICAID, SELFPAY ==
--- NOTE | 2023-11-20 10:53 | A.OFFPC_ITS ---
Intake Visit Reasons: 9 month follow up Allergies Penicillins Allergy (Unknown, Verified 11/20/23 10:54) Unknown lisinopril Adverse Reaction (Unknown, Verified 11/20/23 10:54) cough Medication List - Last Reconciled 11/20/23 by Erika Vyas MD acetaminophen 500 mg PO Q6H PRN 90 days albuterol sulfate 90 mcg/actuation (Ventolin HFA) 1 inh inhalation QID PRN 30 days albuterol sulfate 0.63 mg (3 mL) inhalation QID PRN 90 days cholecalciferol (vitamin D3) 50 mcg PO DAILY 90 days fenofibrate nanocrystallized 145 mg PO DAILY fluticasone propionate 250 mcg/actuation (Flovent Diskus) 1 inh inhalation BID 90 days ibuprofen 800 mg PO Q8H lorazepam 0.5 mg PO DAILY PRN losartan-hydrochlorothiazide 100-25 mg 1 tab PO DAILY 90 days methocarbamol 500 mg PO Q8H PRN nitroglycerin 0.3 mg sublingual Q5M PRN Tobacco use date assessed: 11/20/23 Fall risk assessment: No Falls in past year Last assessed Fall Risk: 11/20/23 Dental Screening Dental Screen Date: 11/20/23 Did you have a dental visit in the last 12 months?: Yes Did you have a dental problem in the last 6 months where you did not have access to dental care?: No Was dental information given to patient?: Patient has dentist HPI 9 month follow up HPI Details Patient is 63-year-old female Patient is doing well Patient suffer from asthma , which has been stable with Flovent inhaler Blood pressure is stable with losartan hydrochlorothiazide 100-25 mg once a day Due for labs before next visit, order placed Patient is slightly anemic as well be bili continue to monitor Lipid disorder with high triglycerides continue fenofibrate offer no complains today [facility] Medical History Endometrial cancer Anxiety Depression, major, recurrent Hypertension, essential Surgical History History of esophagogastroduodenoscopy (EGD) Hx of tubal ligation History of colonoscopy History of section Family History Father No problems noted. Mother HTN (hypertension) Diabetes mellitus Sister Metastatic cancer Sister Brain cancer Maternal Grandfather No problems noted. Maternal Grandmother No problems noted. Paternal Grandfather No problems noted. Paternal Grandmother No problems noted. Social History Housing: House Alcohol intake: current Alcohol intake frequency: holidays/special occasions only Patient Tobacco Use Status: Former Tobacco user e-Cigarette/Vaping Use: Never Used service: No Current occupational status: employed Cognitive needs: No Hearing needs: No Vision needs: No Questionnaire Thrive Questionnaire Date Thrive assessed: 05/24/23 AUDIT C Alcohol Use Questionnaire (AUDIT-C) 1. How often do you have a drink containing alcohol?: Monthly or less 2. How many drinks containing alcohol do you have on a typical day when you are drinking?: 1 or 2 3. How often do you have six or more drinks on one occasion?: Never Total Score: 1 Score Reviewed/Action Taken: Yes EDITH-7 AMB Questionnaire EDITH-7 Date EDITH - 7 assessed: 05/24/23 Source: Developed by Drs. Russell Ascencio, Akanksha Schroeder, Binu Jesus and colleagues, with an educational mayur from [employer]. Review of Systems Const Denies chills and Denies fever(s) ENT Denies epistaxis and Denies nasal discharge Card Denies chest pain Resp Denies chest congestion, Denies cough and Denies hemoptysis GI Denies diarrhea and Denies nausea Skin/Breast Denies rash Neuro Reports no additional complaints Psych Reports no additional complaints Endo Reports no additional complaints Physical exam (Primary Care) Tobacco/Smoking Status: Tobacco use Status Tobacco use date assessed 11/20/23 11/20/23 10:55 Patient Tobacco Use Status Former Tobacco user 11/20/23 10:55 e-Cigarette/Vaping Use Never Used 11/20/23 10:55 Thrive Assessment: Date of Thrive Assessment Date Thrive assessed 05/24/23 11/20/23 10:55 Telehealth Telehealth Telehealth Platform: [facility] Location of provider rendering services: practice address Location of patient: address on file Patient Identification confirmed using: Name, : Yes Telehealth method: voice only Patient verbally consented to treatment: Yes Patient verbally consented to billing insurance company: Yes Patient informed of any privacy concerns related to visit: Yes Minutes spent on Phone/Video with Pt.: 13 Assessment and Plan Assessment & Plan (1) Hypertension, essential: Code(s): I10 - Essential (primary) hypertension (2) Depression, major, recurrent: Code(s): F33.9 - Major depressive disorder, recurrent, unspecified Qualifiers: Active/Remission status: currently active Major depression episode severity: moderate Qualified Code(s): F33.1 - Major depressive disorder, recurrent, moderate (3) Panic anxiety syndrome: Code(s): F41.0 - Panic disorder [episodic paroxysmal anxiety] (4) Asthma, moderate persistent: Code(s): J45.40 - Moderate persistent asthma, uncomplicated Qualifiers: Asthma complication type: uncomplicated Qualified Code(s): J45.40 - Moderate persistent asthma, uncomplicated (5) Anemia: Code(s): D64.9 - Anemia, unspecified Qualifiers: Anemia type: iron deficiency Iron deficiency anemia type: other iron deficiency Qualified Code(s): D50.8 - Other iron deficiency anemias Plan Patient is 63-year-old female Patient is doing well Patient suffer from asthma , which has been stable with Flovent inhaler Blood pressure is stable with losartan hydrochlorothiazide 100-25 mg once a day Due for labs before next visit, order placed Patient is slightly anemic as well be bili continue to monitor Lipid disorder with high triglycerides continue fenofibrate offer no complains today Orders: Orders Lipid Panel 3 Months F33.1 - Major depressive disorder, recurrent, moderate, F41.0 - Panic disorder [episodic paroxysmal anxiety], I10 - Essential (primary) hypertension, J45.40 - Moderate persistent asthma, uncomplicated Complete Blood Count Auto Diff 3 Months F33.1 - Major depressive disorder, recurrent, moderate, F41.0 - Panic disorder [episodic paroxysmal anxiety], I10 - Essential (primary) hypertension, J45.40 - Moderate persistent asthma, uncomplicated Comprehensive [place]. Panel Fast 3 Months F33.1 - Major depressive disorder, recurrent, moderate, F41.0 - Panic disorder [episodic paroxysmal anxiety], I10 - Essential (primary) hypertension, J45.40 - Moderate persistent asthma, uncomplicated Coding Level of Care Code Tele Est Pt Level 3 (67795) Diagnoses Hypertension, essential I10 Moderate episode of recurrent major depressive disorder F33.1 Active/Remission status: currently active Major depression episode severity: moderate Panic anxiety syndrome F41.0 Moderate persistent asthma without complication J45.40 Asthma complication type: uncomplicated Other iron deficiency anemia D50.8 Anemia type: iron deficiency Iron deficiency anemia type: other iron deficiency
== END 2023-11-20 12:17 | disposition home or self-care (01) ==
LOC: HO.HMGC 10:42
PROVIDERS: PCP Internal Medicine; Visit Provider Internal Medicine
DX: I10 Essential (primary) hypertension (principal); F33.1 Major depressive disorder, recurrent, moderate; F41.0 Panic disorder [episodic paroxysmal anxiety]; J45.40 Moderate persistent asthma, uncomplicated; D50.8 Other iron deficiency anemias
CPT/HCPCS: 99442

== ENCOUNTER 2023-12-16 14:05 | Outpatient (REF) | payer MEDICARE, MEDICAID, SELFPAY | END 2023-12-16 14:06 | disposition home or self-care (01) | LOC: HO.MAMMO 14:05 | PROVIDERS: PCP Internal Medicine; Visit Provider Internal Medicine | DX: Z12.31 Encounter for screening mammogram for malignant neoplasm of breast (principal) | CPT/HCPCS: 77063; 77067 ==

== ENCOUNTER → 2023-12-16 14:45 | Outpatient (BNV) | payer MEDICARE, MEDICAID, SELFPAY | PROVIDERS: PCP Internal Medicine; Visit Provider Radiology Diagnostic Radiology | DX: Z12.31 Encounter for screening mammogram for malignant neoplasm of breast (principal) | CPT/HCPCS: 77063; 77067 ==

== ENCOUNTER → 2023-12-24 12:42 | Outpatient (REF) | payer MEDICARE, MEDICAID, SELFPAY ==
--- NOTE | 2023-12-24 12:45 | CA_ITS ---
Transthoracic Echocardiogram Patient (Last, First, Middle): Tania Herbert, Gender: Female Date of : 1960 Age: 63 Procedure Date: 12/24/2023 Procedure Type: Transthoracic Echocardiogram Location: OP Height: 152.4 cm Weight: 57.15 kg BSA: 1.53 m2 Heart Rate: bpm BP: 130 / 78 mmHg Water Chaser: TO Referring MD: Dmitry Gibbs MD Flea Market Seller: Dmitry Gibbs MD Symptoms: R94.31 - Abnormal electrocardiogram [ECG] [EKG] Study Quality: Adequate w contrast Conclusions: - Normal left ventricular cavity size. There is mildly increased left ventricular wall thickness. The left ventricular systolic function is hyperdynamic. The visually estimated ejection fraction is >70%. - E/E prime ratio is between 8 and 15 consistent with indeterminate filling pressures. - Normal right ventricular cavity size. There is low normal right ventricular systolic function. - There is mild dilatation of the sinuses of Valsalva measuring 3.98 cm and mild dilatation of the ascending aorta measuring 3.90 cm. Findings Procedure Information Contrast agent, definity, is being given per protocol without apparent complications. Left Ventricle Normal left ventricular cavity size. There is mildly increased left ventricular wall thickness. The left ventricular systolic function is hyperdynamic. The visually estimated ejection fraction is >70%. There is no dynamic left ventricular outflow tract obstruction. Abnormal diastolic function is noted. Spectral Doppler is indicative of an impaired relaxation filling pattern. E/E prime ratio is between 8 and 15 consistent with indeterminate filling pressures. Right Ventricle Normal right ventricular cavity size. There is low normal right ventricular systolic function. Atria The left atrium is likely dilated. Aortic Valve There is a normal trileaflet aortic valve. There is no aortic valve stenosis. There is no aortic valve regurgitation. Mitral Valve The mitral valve appears normal. There is mild mitral annular calcification. There is no mitral valve regurgitation. There is no mitral valve stenosis. Pulmonic Valve The pulmonic valve is normal. There is trace pulmonic valve regurgitation. Tricuspid Valve Normal tricuspid valve structure. There is trace tricuspid valve regurgitation. Normal right atrial pressure. There is no evidence of pulmonary hypertension. Great Vessels There is mild dilatation of the sinuses of Valsalva measuring 3.98 cm and mild dilatation of the ascending aorta measuring 3.90 cm. The visualized portions of the pulmonary artery and branches are normal. Venous The inferior vena cava is normal in size and collapses greater than 50% with inspiration. Pericardium/Pleural Prominent epicardial adipose tissue noted. There is no evidence of pericardial effusion. Prior Study Comparison No prior study available for comparison. Measurements 2D Linear Measurements IVSd: 1.24 0.6-0.9/0.6-1.0 cm LVIDd: 4.16 3.9-5.3/4.2-5.9 cm LVIDd Index: 2.72 2.4-3.2/2.2-3.1 cm/m2 LVIDs: 2.67 2.0-3.6 cm LVPWd: 1.04 0.7-1.1 cm LA Diam: 3.70 2.7-3.8/3.0-4.0 cm LAIDs Index: 2.42 1.5-2.3 cm/m2 LV Mass: 202.90 67-162/88-224 g LV Mass Index: 132.62 43-95/49-115 g/m2 LVOT Diam: 2.20 3.0+(-)1.3 cm 2D Systolic Function EF 4C: 66.50 >55% EF 2C: 75.60 >55% EF BiP: 71.30 >55% Mitral Valve MV VTI: 0.28 MV Pk Toni: 1.03 MV Mn Toni: 0.62 MV Pk Grad: 4.00 MV Mn Grad: 2.00 MV Pk E: 0.76 MV PK A: 0.72 MV Decel Time: 271.00 E/A: 1.00 E'Lateral: 5.98 E'Medial: 4.57 E/E' Med: 16.60 E/E' Lat: 12.70 PHT: 79.00 MVA PHT: 2.78 MVA Continuity: 3.38 Decel Lawrence: 2.79 Aortic Valve AoV Pk Toni: 1.52 AoV Mn Toni: 0.99 AoV VTI: 0.30 AoV Pk Grad: 9.00 Aov Mn Grad: 4.00 NEVAEH Cont.VTI: 3.15 LVOT LVOT Pk Toni: 1.23 LVOT Mn Toni: 0.89 LVOT VTI: 0.25 LVOT Pk Grad: 6.00 LVOT Mn Grad: 4.00 LVOT Diam: 2.20 LVOT Area: 3.80 Diastolic Function MV Pk E: 0.76 MV Pk A: 0.72 E/A: 1.00 E'Medial: 4.57 E/E' Med: 16.60 E' Laterial: 5.98 E/E' Lat: 12.70 Right Ventricle TAPSE (mm): 20.40 TVS' Toni: 10.90 Tricuspid Valve TR Pk Toni: 2.38 TR Pk Grad: 23.00 RA Press: 3.00 RVSP: 26.00 Great Vessels Aorta Sinus of Valsalva: 3.98 2.0-3.[address] [place]: 3.04 1.7-3.4 cm Ao Asc: 3.90 2.1-3.4 cm Updated in Other Vendor System with Status of Final Dmitry Gibbs MD electronically signed on 12/25/2023 12:21:01 PM with status of Final
== END ==
LOC: HO.CARD 12:42
PROVIDERS: PCP Internal Medicine; Visit Provider Internal Medicine Cardiovascular Disease
DX: R94.31 Abnormal electrocardiogram [ECG] [EKG] (principal)
CPT/HCPCS: 93306; Q9957

== ENCOUNTER → 2023-12-24 12:45 | Outpatient (BNV) | payer MEDICARE, MEDICAID, SELFPAY | PROVIDERS: PCP Internal Medicine; Visit Provider Internal Medicine Cardiovascular Disease | DX: I34.81 Nonrheumatic mitral (valve) annulus calcification (principal); R93.1 Abnormal findings on diagnostic imaging of heart and coronary circulation | CPT/HCPCS: 93306 ==

== ENCOUNTER 2024-02-12 10:40 | Outpatient (AMB) | payer MEDICARE, MEDICAID, SELFPAY ==
--- NOTE | 2024-02-12 10:44 | AM.OFFWIN_ITS ---
Intake Vital Signs 3 02/12/24 10:45 Height 5 ft 2 in Weight 127 lb BMI 23.2 BP 122/86 Blood Pressure Location Lt brachial Position Sitting Pulse 89 Pulse Source Pulse Oximeter Pulse Oximetry (%) 99 Oxygen Delivery Method Room Air Intake Visit Reasons: EP- LT side back pain Intake Note: Pt presents to the office today for c/o left sided upper back pain x3 days. Pt denies any injury to her back and denies any UTI symptoms. Patient Tobacco Use Status: Former Tobacco user Allergies Penicillins Allergy (Unknown, Verified 02/12/24 10:46) Unknown lisinopril Adverse Reaction (Unknown, Verified 02/12/24 10:46) cough Medication List - Last Reconciled 02/12/24 by Erika Vyas MD acetaminophen 500 mg PO Q6H PRN 90 days albuterol sulfate 0.63 mg (3 mL) inhalation QID PRN 90 days albuterol sulfate 90 mcg/actuation (Ventolin HFA) 1 inh inhalation QID PRN 30 days cholecalciferol (vitamin D3) 50 mcg PO DAILY 90 days fluticasone propionate 250 mcg/actuation (Flovent Diskus) 1 inh inhalation BID 90 days ibuprofen 800 mg PO Q8H lorazepam 0.5 mg PO DAILY PRN losartan-hydrochlorothiazide 100-25 mg 1 tab PO DAILY 90 days methocarbamol 500 mg PO Q8H PRN HPI EP- LT side back pain 2 HPI0 Details Patient is 63-year-old female came in today to be evaluated for left flank pain which started 3 days ago Patient says that she does not have any urinary complaints, there is no frequency no burning there is no blood in the urine There is no fever no chills, there is no nausea no vomiting Pain is worsened when she rotate her back On examination there is no pain with pressure over the flank area or mid spine However when she rotates to words right side she is feeling the pain I am treating her with muscle relaxer She is already taking ibuprofen 800 which sometimes helps and sometimes does not I am adding tramadol 50 mg she may take that up to 3 times a day Patient was notified of side effects, we will cause drowsiness and there is a risk of fall do not drive or work with machine while taking this medication. Patient was not able to provide us with a urine sample I have ordered UA in lab, she is to return and give us a urine sample when she is ready. Patient will give me a call tomorrow or day to update me on how she is feeling [facility] Medical History Endometrial cancer Anxiety Depression, major, recurrent Hypertension, essential Surgical History History of esophagogastroduodenoscopy (EGD) Hx of tubal ligation History of colonoscopy History of section Family History Father No problems noted. Mother HTN (hypertension) Diabetes mellitus Sister Metastatic cancer Sister Brain cancer Maternal Grandfather No problems noted. Maternal Grandmother No problems noted. Paternal Grandfather No problems noted. Paternal Grandmother No problems noted. Social History Housing: House Alcohol intake: current Alcohol intake frequency: holidays/special occasions only Patient Tobacco Use Status: Former Tobacco user e-Cigarette/Vaping Use: Never Used service: No Current occupational status: employed Cognitive needs: No Hearing needs: No Vision needs: No Review of Systems Const All systems reviewed & are unremarkable except as noted in HPI and below Physical Exam Vital Signs: Last Vital Signs Pulse 89 02/12/24 10:45 BP 122/86 02/12/24 10:45 Pulse Ox 99 02/12/24 10:45 Oxygen Delivery Method Room Air 02/12/24 10:45 BMI result Body Mass Index 23.2 Const General: no acute distress Orientation/consciousness: patient oriented x3 Eyes General: appearance normal, both eyes and all related structures Resp Effort & Inspection: normal respiratory effort and able to speak in complete sentences Auscultation: clear to auscultation bilaterally Cardio Other: S1 S2 Back/Spine/Pelvis Back/spine/pelvis image: 2 1. No pain with percussion or palpation left flank area or middle spine area, pain is reproducible with right-sided rotation Neuro General: patient oriented x3 Psych Mental Status: mental status grossly normal Assessment & Plan Assessment & Plan (1) Left flank pain: Code(s): R10.9 - Unspecified abdominal pain Plan Patient is 63-year-old female came in today to be evaluated for left flank pain which started 3 days ago Patient says that she does not have any urinary complaints, there is no frequency no burning there is no blood in the urine There is no fever no chills, there is no nausea no vomiting Pain is worsened when she rotate her back On examination there is no pain with pressure over the flank area or mid spine However when she rotates to words right side she is feeling the pain I am treating her with muscle relaxer She is already taking ibuprofen 800 which sometimes helps and sometimes does not I am adding tramadol 50 mg she may take that up to 3 times a day Patient was notified of side effects, we will cause drowsiness and there is a risk of fall do not drive or work with machine while taking this medication. Patient was not able to provide us with a urine sample I have ordered UA in lab, she is to return and give us a urine sample when she is ready. Patient will give me a call tomorrow or day to update me on how she is feeling Orders: Orders 2 UA CC w/rflx Micro + Cult Today R10.9 - Unspecified abdominal pain Medications: New 2 tramadol 50 mg PO TID 15 tabs 0RF 5 days cyclobenzaprine 5 mg PO TID PRN 14 tabs 0RF muscle spasm 5 days Coding Level of Care Code Est Pt Level 4 (43417) Diagnoses Left flank pain R10.9
[2024-02-12 10:45] VITALS: BP 122/86; PULSE 89; O2SAT 99; BMI 23.2
== END 2024-02-12 11:00 | disposition home or self-care (01) ==
PROVIDERS: PCP Internal Medicine; Visit Provider Internal Medicine
DX: R10.9 Unspecified abdominal pain (principal)
CPT/HCPCS: 99214

== ENCOUNTER 2024-02-14 09:02 | Outpatient (AMB) | payer MEDICARE, MEDICAID, SELFPAY ==
[2024-02-14 09:04] VITALS: BP 120/88; PULSE 75; TEMP 36.7; O2SAT 98; BMI 23.4
--- NOTE | 2024-02-14 09:04 | AM.OFFWIN_ITS ---
Intake Vital Signs 02/14/24 09:04 Height 5 ft 2 in Weight 128 lb BMI 23.4 BP 120/88 Blood Pressure Location Lt brachial Position Sitting Pulse 75 Pulse Source Pulse Oximeter Temp 98.0 F Temp Source Oral Pulse Oximetry (%) 98 Oxygen Delivery Method Room Air Intake Visit Reasons: EP- LT side rib pain Intake Note: Pt presents to the office today for c/o left sided rib pain. Pt states the pain started 5 days ago. Pt states she was seen here saturday and given tramadol and cyclobenzaprine which hasnt helped with the pain. Pt states the medications made her very sleepy. Pt states the pain is getting worse. Patient Tobacco Use Status: Former Tobacco user Allergies Penicillins Allergy (Unknown, Verified 02/14/24 09:07) Unknown lisinopril Adverse Reaction (Unknown, Verified 02/14/24 09:07) cough HPI HPI Comments History of Present Illness Details Patient is a 63-year-old female complaining of left-sided rib pain. She states she was seen here 2 days ago and given cyclobenzaprine and tramadol she has been taking but they just make her tired and they do not manage the pain. She is also taking ibuprofen which sometimes works. She states the pain is worse when she breathes deep. She denies any trauma to the area. She was not able to give us a urine sample on her last visit and did not come back to provide 1 since. She denies any fevers, blood in her urine, abdominal pain, increased frequency of urination, increased urgency of urination, burning with urination, nausea or vomiting. Patient did tell me that there is a rather large man at her work place who gives her big hugs all the time and she is wondering if because she so tiny and fragile that maybe he did fracture of rib with all of his hugging. REPLACED BY [facility] Medical History Endometrial cancer Anxiety Depression, major, recurrent Hypertension, essential Surgical History History of esophagogastroduodenoscopy (EGD) Hx of tubal ligation History of colonoscopy History of section Family History Father No problems noted. Mother HTN (hypertension) Diabetes mellitus Sister Metastatic cancer Sister Brain cancer Maternal Grandfather No problems noted. Maternal Grandmother No problems noted. Paternal Grandfather No problems noted. Paternal Grandmother No problems noted. Social History Housing: House Alcohol intake: current Alcohol intake frequency: holidays/special occasions only Patient Tobacco Use Status: Former Tobacco user e-Cigarette/Vaping Use: Never Used service: No Current occupational status: employed Cognitive needs: No Hearing needs: No Vision needs: No Review of Systems Const All systems reviewed & are unremarkable except as noted in HPI and below Physical Exam Vital Signs: Last Vital Signs Temp 98.0 F 02/14/24 09:04 Pulse 75 02/14/24 09:04 BP 120/88 02/14/24 09:04 Pulse Ox 98 02/14/24 09:04 Oxygen Delivery Method Room Air 02/14/24 09:04 BMI result Body Mass Index 23.4 Const General: cooperative, healthy appearing, comfortable, no acute distress and well developed Orientation/consciousness: patient oriented x3 Limitations: no limitations HEENT Head: Yes normal to inspection Ears: hearing grossly normal bilaterally General nose exam: Normal external nose present Face and sinus: Yes normal facial exam Eyes General: appearance normal, both eyes and all related structures Neck Neck: Yes normal visual inspection and Yes full ROM Chest Chest palpation & inspection: normal inspection of the chest and localized rib tenderness with anteroposterior compression left posterior-axillary line involving the 7th rib and involving the 8th rib Resp Effort & Inspection: normal respiratory effort and able to speak in complete sentences Auscultation: clear to auscultation bilaterally GI Inspection: Yes normal to inspection Palpation (GI): Soft to palpation and nontender Skin General skin exam: no rashes or lesions noted Neuro General: patient oriented x3 Extrem General: Yes normal to inspection Results AMB Urinalysis, Automated UA Leukoctes 15 Kimo/uL Last Edit by SILVIA Reyez on 02/14/24 09:2 8 UA Nitrite Negative Last Edit by SILVIA Reyez on 02/14/24 09:28 UA Urobilinogen 0.2 mg/dL Last Edit by SILVIA Reyez on 02/14/24 09:28 UA Protein 0 mg/dL Last Edit by SILVIA Reyez on 02/14/24 09:28 UA pH 6.0 Last Edit by SILVIA Reyez on 02/14/24 09:28 UA Blood 0 William/uL Last Edit by Ronnie Estrada CCMA on 02/14/24 09:28 UA Specific [place] 1.020 Last Edit by SILVIA Reyez on 02/14/24 09:28 UA Ketone Negative Last Edit by Ronnie Estrada CCMA on 02/14/24 09:28 UA Bilirubin 0 mg/dL Last Edit by SILVIA Reyez on 02/14/24 09:28 UA Glucose 0 mg/dL Last Edit by SILVIA Reyez on 02/14/24 09:28 Assessment & Plan Assessment & Plan (1) Left flank pain: Code(s): R10.9 - Unspecified abdominal pain Plan: UA was positive for 15 leukocyte esterase, negative for nitrites and negative for blood. I think this is just a dirty urine and not an actual urinary tract infection as patient is not symptomatic of one. I will send a culture to be sure. We will get chest x-ray and rib x-ray. Recommended patient not take the medications if they do not help with the pain and only make her drowsy. Recommended she stick with rest, ice and ibuprofen. Plan See above Orders: Orders AMB Urinalysis Automated Today Z13.9 - Encounter for screening, unspecified XR ribs LT min 3V w CXR1V Today R10.9 - Unspecified abdominal pain Urine Culture Today R10.9 - Unspecified abdominal pain Coding Level of Care Code Est Pt Level 4 (53928) Diagnoses Left flank pain R10.9
== END 2024-02-14 09:53 | disposition home or self-care (01) ==
PROVIDERS: PCP Internal Medicine; Visit Provider Physician Assistant
DX: R10.9 Unspecified abdominal pain (principal)
CPT/HCPCS: 81003; 99214

== ENCOUNTER 2024-02-14 09:32 | Outpatient (REF) | payer MEDICARE, MEDICAID, SELFPAY ==
--- NOTE | ~2024-02-14 | XR_ITS ---
EXAMINATION: XR RIBS, LEFT CLINICAL INFORMATION: Left rib pain COMPARISON: Chest x-ray on 08/25/2018 TECHNIQUE: 3 views of the left ribs, PA chest x-ray were obtained. FINDINGS: PA chest x-ray, frontal and oblique x-rays of Left ribs show normal cardiac size and pulmonary vascularity. There is effacement of left lateral costophrenic angle. No pneumothorax is seen. The visualized Left ribs are intact without focal lesion. XR/XR ribs LT min 3V w CXR1V IMPRESSION: 1. Interval development of left lateral lung base focal atelectasis or tiny pleural effusion. No pneumothorax is found. 2. No evidence of Right ribs fracture. Electronically signed by: Michelle Langston MD 02/14/2024 01:12 PM EDT
== END 2024-02-14 09:33 | disposition home or self-care (01) ==
LOC: HO.HMGCX 09:32
PROVIDERS: PCP Internal Medicine; Visit Provider Physician Assistant
DX: R10.9 Unspecified abdominal pain (principal)
CPT/HCPCS: 71101; 87086

== ENCOUNTER 2024-02-14 09:32 | Outpatient (REF) | payer MEDICARE, MEDICAID, SELFPAY | END 2024-02-14 09:33 | disposition home or self-care (01) | LOC: HO.LNP 09:32 | PROVIDERS: Visit Provider Internal Medicine | DX: R10.9 Unspecified abdominal pain (principal) | CPT/HCPCS: 87086 ==

== ENCOUNTER 2024-02-28 10:46 | Outpatient (AMB) | payer MEDICARE, MEDICAID, SELFPAY ==
[2024-02-28 10:51] VITALS: BP 122/66; PULSE 75; O2SAT 99; BMI 23.3
--- NOTE | 2024-02-28 10:51 | A.OFFPC_ITS ---
Vital Signs 02/28/24 10:51 Height 5 ft 2 in Weight 127 lb 8 oz BMI 23.3 BP 122/66 Blood Pressure Location Rt brachial Position Sitting Pulse 75 Pulse Source Pulse Oximeter Pulse Oximetry (%) 99 Oxygen Delivery Method Room Air Intake Visit Reasons: Annual PE Allergies Penicillins Allergy (Unknown, Verified 02/28/24 10:54) Unknown lisinopril Adverse Reaction (Unknown, Verified 02/28/24 10:54) cough Medication List - Last Reconciled 02/28/24 by Erika Vyas MD acetaminophen 500 mg PO Q6H PRN 90 days albuterol sulfate 0.63 mg (3 mL) inhalation QID PRN 90 days albuterol sulfate 90 mcg/actuation (Ventolin HFA) 1 inh inhalation QID PRN 30 days cholecalciferol (vitamin D3) 50 mcg PO DAILY 90 days fluticasone propionate 250 mcg/actuation (Flovent Diskus) 1 inh inhalation BID 90 days ibuprofen 800 mg PO Q8H lorazepam 0.5 mg PO DAILY PRN losartan-hydrochlorothiazide 100-25 mg 1 tab PO DAILY 90 days tramadol 50 mg PO TID 5 days Tobacco use date assessed: 02/28/24 Fall risk assessment: No Falls in past year Last assessed Fall Risk: 02/28/24 Dental Screening Dental Screen Date: 02/28/24 Did you have a dental visit in the last 12 months?: No Did you have a dental problem in the last 6 months where you did not have access to dental care?: No Was dental information given to patient?: No HPI Annual PE HPI Details Patient is 63-year-old female She was seen few days before when she came in complaining of left-sided chest pain I prescribed some tramadol for the patient which did not help her She was seen again at [facility] tramadol was stopped ibuprofen was recommended And she was given some breathing exercises chest x-ray was done which showed small amount of atelectasis and small amount of effusion left lower base Patient says that after the breathing exercises her symptoms have improved Colonoscopy is due Last time patient went in for colonoscopy she started having tachycardia just before the procedure and so the procedure was cancel Stress test was scheduled but then patient started having that chest pain left- sided so it was canceled as well Now she is going on vacation and she will book stress test after the vacation History of complete hysterectomy secondary to ovarian cancer years ago Checkup was negative after that Mammogram is up-to-date December of this year Last time she had lab August of this year Her ferritin was elevated her calcium was elevated and liver enzymes were abnormal I have ordered a new set of labs to be done fasting Chest x-ray need to be repeated in 1 month Follow-up 4 months for her hypertension and 1 year physical exam [facility] Medical History Endometrial cancer Anxiety Depression, major, recurrent Hypertension, essential Surgical History History of esophagogastroduodenoscopy (EGD) Hx of tubal ligation History of colonoscopy History of section Family History Father No problems noted. Mother HTN (hypertension) Diabetes mellitus Sister Metastatic cancer Sister Brain cancer Maternal Grandfather No problems noted. Maternal Grandmother No problems noted. Paternal Grandfather No problems noted. Paternal Grandmother No problems noted. Social History Housing: House Alcohol intake: current Alcohol intake frequency: holidays/special occasions only Patient Tobacco Use Status: Former Tobacco user e-Cigarette/Vaping Use: Never Used service: No Current occupational status: employed Cognitive needs: No Hearing needs: No Vision needs: No Questionnaire PHQ-9 Over the last 2 weeks, how often have you been bothered by any of the following problems? 1. Little interest or pleasure in doing things: not at all 2. Feeling down, depressed, or hopeless: not at all 3. Trouble falling or staying asleep, or sleeping too much: not at all 4. Feeling tired or having little energy: not at all 5. Poor appetite or overeating: not at all 6. Feeling bad about yourself - or that you are a failure or have let yourself or your family down: not at all 7. Trouble concentrating on things, such as reading the newspaper or watching television: not at all 8. Moving or speaking so slowly that other people could have noticed. Or the opposite - being so fidgety or restless that you have been moving around a lot more than usual: not at all 9. Thoughts that you would be better off or of hurting yourself in some way: not at all Total score: 0 Depression Screening Interpretation: Negative Depression Screening Done: Yes 09227 - PHQ-9 Billing: Yes Source: Developed by Drs. Russell Ascencio, Akanksha Schroeder, Binu Jesus and colleagues, with an educational mayur from [employer]. Thrive Questionnaire Date Thrive assessed: 02/28/24 I am a: Patient What is your living situation today?: I have a steady place to live Within the past 12 months, did the food you bought not last and you didn't have the money to get more?: I choose not to answer this question Within the past 12 months, did you worry whether your food would run out before you got money to buy more?: I choose not to answer this question Do you have trouble paying for medicines?: I choose not to answer this question Do you have trouble getting transportation to medical appointments?: I choose not to answer this question Do you have trouble paying your heating and electricity bill?: I choose not to answer this question Do you have trouble taking care of your child, family member or friend?: I choose not to answer this question Do you have trouble with day-to-day activities such as bathing, preparing meals, shopping, managing finances, etc.?: I choose not to answer this question Are you currently unemployed and looking for a job?: I choose not to answer this question Are you interested in more education?: I choose not to answer this question Please select the resources that you would like help with: None Currently or been in a relationship where the following occur: I choose not to answer THRIVE Score: 0 AUDIT C Alcohol Use Questionnaire (AUDIT-C) 1. How often do you have a drink containing alcohol?: Never 3. How often do you have six or more drinks on one occasion?: Never Total Score: 0 Score Reviewed/Action Taken: Yes EDITH-7 AMB Questionnaire EDITH-7 Date EDITH - 7 assessed: 02/28/24 Feeling nervous, anxious, or on edge: 0 = Not at all Not being able to stop or control worryin = Not at all Worrying too much about different things: 0 = Not at all Trouble relaxin = Not at all Being so restless that it is hard to sit still: 0 = Not at all Becoming easily annoyed or irritable: 0 = Not at all Feeling afraid as if something awful might happen: 0 = Not at all Total EDITH-7 score (0-4 normal; 5-9 mild; 10-14 moderate; 15-21 severe): 0 Source: Developed by Drs. Russell Ascencio, Akanksha Schroeder, Binu Jesus and colleagues, with an educational mayur from [employer]. EDITH-7 Assessment Billing EDITH-7 Assessment Tool: EDITH-7 Assessment 90832 Review of Systems Const Denies chills, Denies fever(s) and Denies headache(s) Eyes Denies blurry vision ENT Denies headache(s), Denies nasal discharge, Denies nasal obstruction, Denies odynophagia and Denies sinus pain Card Denies chest pain at rest and Denies chest pain with activity Resp Denies cough and Denies hemoptysis GI Denies diarrhea, Denies odynophagia, Denies vomiting and Denies hematemesis Reports as per HPI Musc Denies abnormal gait Skin/Breast Reports as per HPI Neuro Denies Neuro-related abnormal movements, Denies Abnormal speech present, Denies abnormal gait, Denies headache(s) and Denies Sensory deficit (Neuro) Psych Denies mood swings and Denies paranoia Endo Reports as per HPI Yanick/Lymph Reports as per HPI Aller/Immun Reports as per HPI Physical exam (Primary Care) Vital Signs: Last Vital Signs Pulse 75 02/28/24 10:51 BP 122/66 02/28/24 10:51 Pulse Ox 99 02/28/24 10:51 Oxygen Delivery Method Room Air 02/28/24 10:51 BMI result Body Mass Index 23.3 Tobacco/Smoking Status: Tobacco use Status Tobacco use date assessed 02/28/24 02/28/24 10:55 Patient Tobacco Use Status Former Tobacco user 02/28/24 10:55 e-Cigarette/Vaping Use Never Used 02/28/24 10:55 PHQ-9: PHQ-9 Score PHQ-9: Total score 0 02/28/24 10:55 Depression Screening Interpretation: Negative Thrive Assessment: Date of Thrive Assessment Date Thrive assessed 02/28/24 02/28/24 10:55 Currently or been in a relationship where the following occur: I choose not to answer Const General: cooperative, comfortable and no acute distress Orientation/consciousness: patient oriented x3 HENMT Head: Yes normocephalic and Yes atraumatic Eyes General: appearance normal, both eyes and all related structures Pupils: Equal, round and reactive pupils present EOM: EOMs intact bilaterally Neck Neck: Yes supple and No lymphadenopathy Thyroid: Thyroid normal Lymphatic: no lymphadenopathy noted Chest Breast/axilla palpation: normal palpation of the breasts Resp Effort & Inspection: normal respiratory effort and able to speak in complete sentences Auscultation: clear to auscultation bilaterally Cardio Heart sounds: S1 normal heart sound present and S2 normal heart sound present GI Palpation (GI): Soft to palpation and nontender Auscultation: normal bowel sounds General: Yes no CVA tenderness Back/Spine/Pelvis Back: no CVA tenderness Skin General skin exam: elasticity normal and turgor normal Neuro General: patient oriented x3 and gait normal Cranial nerves: Yes Equal, round and reactive pupils present Speech: No Abnormal speech present Sensory Exam: No Sensory deficit (Neuro) Coordination: tandem gait normal and Romberg test negative Extrem General: Yes normal exam except as noted and No edema Assessment and Plan Assessment & Plan (1) Encounter for general adult medical examination with abnormal findings: Code(s): Z00.01 - Encounter for general adult medical examination with abnormal findings (2) Pleural effusion, left: Code(s): J90 - Pleural effusion, not elsewhere classified (3) Elevated ferritin: Code(s): R79.89 - Other specified abnormal findings of blood chemistry (4) LFT elevation: Code(s): R79.89 - Other specified abnormal findings of blood chemistry (5) Asthma, moderate persistent: Code(s): J45.40 - Moderate persistent asthma, uncomplicated Qualifiers: Asthma complication type: uncomplicated Qualified Code(s): J45.40 - Moderate persistent asthma, uncomplicated (6) Hypertension, essential: Code(s): I10 - Essential (primary) hypertension (7) Generalized anxiety disorder with panic attacks: Code(s): F41.1 - Generalized anxiety disorder; F41.0 - Panic disorder [episodic paroxys mal anxiety] (8) Serum calcium elevated: Code(s): E83.52 - Hypercalcemia Plan Patient is 63-year-old female She was seen few days before when she came in complaining of left-sided chest pain I prescribed some tramadol for the patient which did not help her She was seen again at [facility]in clinic tramadol was stopped ibuprofen was recommended And she was given some breathing exercises chest x-ray was done which showed small amount of atelectasis and small amount of effusion left lower base Patient says that after the breathing exercises her symptoms have improved Colonoscopy is due Last time patient went in for colonoscopy she started having tachycardia just before the procedure and so the procedure was cancel Stress test was scheduled but then patient started having that chest pain left- sided so it was canceled as well Now she is going on vacation and she will book stress test after the vacation History of complete hysterectomy secondary to ovarian cancer years ago Checkup was negative after that Mammogram is up-to-date December of this year Last time she had lab August of this year Her ferritin was elevated her calcium was elevated and liver enzymes were abnormal I have ordered a new set of labs to be done fasting Chest x-ray need to be repeated in 1 month Follow-up 4 months for her hypertension and 1 year physical exam Orders: Orders Comprehensive [place]. Panel Fast Today E83.52 - Hypercalcemia, F41.0 - Panic disorder [episodic paroxysmal anxiety], F41.1 - Generalized anxiety disorder, I10 - Essential (primary) hypertension, J45.40 - Moderate persistent asthma, uncomplicated, J90 - Pleural effusion, not elsewhere classified, R79.89 - Other specified abnormal findings of blood chemistry, Z00.01 - Encounter for general adult medical examination with abnormal findings TSH reflex Free T4 Today E83.52 - Hypercalcemia, F41.0 - Panic disorder [episodic paroxysmal anxiety], F41.1 - Generalized anxiety disorder, I10 - Essential (primary) hypertension, J45.40 - Moderate persistent asthma, uncomplicated, J90 - Pleural effusion, not elsewhere classified, R79.89 - Other specified abnormal findings of blood chemistry, Z00.01 - Encounter for general adult medical examination with abnormal findings Ferritin Today E83.52 - Hypercalcemia, F41.0 - Panic disorder [episodic paroxysmal anxiety], F41.1 - Generalized anxiety disorder, I10 - Essential (primary) hypertension, J45.40 - Moderate persistent asthma, uncomplicated, J90 - Pleural effusion, not elsewhere classified, R79.89 - Other specified abnormal findings of blood chemistry, Z00.01 - Encounter for general adult medical examination with abnormal findings DNA Analysis Hemochromatosis Today E83.52 - Hypercalcemia, F41.0 - Panic disor eulogio [episodic paroxysmal anxiety], F41.1 - Generalized anxiety disorder, I10 - Essential (primary) hypertension, J45.40 - Moderate persistent asthma, uncomplicated, J90 - Pleural effusion, not elsewhere classified, R79.89 - Other specified abnormal findings of blood chemistry, Z00.01 - Encounter for general adult medical examination with abnormal findings XR chest 2V 4 Weeks J90 - Pleural effusion, not elsewhere classified Complete Blood Count Auto Diff Today E83.52 - Hypercalcemia, F41.0 - Panic disorder [episodic paroxysmal anxiety], F41.1 - Generalized anxiety disorder, I10 - Essential (primary) hypertension, J45.40 - Moderate persistent asthma, uncomplicated, J90 - Pleural effusion, not elsewhere classified, R79.89 - Other specified abnormal findings of blood chemistry, Z00.01 - Encounter for general adult medical examination with abnormal findings Lipid Panel Today E83.52 - Hypercalcemia, F41.0 - Panic disorder [episodic paroxysmal anxiety], F41.1 - Generalized anxiety disorder, I10 - Essential (primary) hypertension, J45.40 - Moderate persistent asthma, uncomplicated, J90 - Pleural effusion, not elsewhere classified, R79.89 - Other specified abnormal findings of blood chemistry, Z00.01 - Encounter for general adult medical examination with abnormal findings Vitamin D 25-OH (D2 and D3) Today E83.52 - Hypercalcemia, F41.0 - Panic disorder [episodic paroxysmal anxiety], F41.1 - Generalized anxiety disorder, I10 - Essential (primary) hypertension, J45.40 - Moderate persistent asthma, uncomplicated, J90 - Pleural effusion, not elsewhere classified, R79.89 - Other specified abnormal findings of blood chemistry, Z00.01 - Encounter for general adult medical examination with abnormal findings UA CC w/rflx Micro + Cult Today E83.52 - Hypercalcemia, F41.0 - Panic disorder [episodic paroxysmal anxiety], F41.1 - Generalized anxiety disorder, I10 - Essential (primary) hypertension, J45.40 - Moderate persistent asthma, uncomplicated, J90 - Pleural effusion, not elsewhere classified, R79.89 - Other specified abnormal findings of blood chemistry, Z00.01 - Encounter for general adult medical examination with abnormal findings Referrals Open Access Screening Colonoscopy Referral Z12.11 - Encounter for screening for malignant neoplasm of colon, Z12.12 - Encounter for screening for malignant neoplasm of rectum Coding Level of Care Code Est Pt Level 4 (35887) Est Pt Prev Care >65y(98083) Diagnoses Encounter for general adult medical examination with abnormal findings Z00.01 Pleural effusion, left J90 Elevated ferritin R79.89 LFT elevation R79.89 Moderate persistent asthma without complication J45.40 Asthma complication type: uncomplicated Hypertension, essential I10 Generalized anxiety disorder with panic attacks F41.1; F41.0 Serum calcium elevated E83.52 Additional Codes EDITH-7 Assessment Billing - EDITH-7 Assessment Tool: EDITH-7 Assessment [id number] ([id number])
== END 2024-02-28 11:52 | disposition home or self-care (01) ==
PROVIDERS: PCP Internal Medicine; Visit Provider Internal Medicine
DX: Z00.00 Encounter for general adult medical examination without abnormal findings (principal); J90 Pleural effusion, not elsewhere classified; R79.89 Other specified abnormal findings of blood chemistry; J45.40 Moderate persistent asthma, uncomplicated; I10 Essential (primary) hypertension; F41.1 Generalized anxiety disorder; F41.0 Panic disorder [episodic paroxysmal anxiety]; E83.52 Hypercalcemia
CPT/HCPCS: 99397

== ENCOUNTER 2024-03-02 12:48 | Outpatient (REF) | payer MEDICARE, MEDICAID, SELFPAY ==
[2024-03-02 15:57] LABS: MANUAL DIFF FLAG NO
[2024-03-02 16:06] LABS: Appearance Urine Clear; Color Urine Yellow; Glucose Urine UA Negative (Negative); Leukocyte Esterase Urine Trace (Negative); Nitrite Urine Negative (Negative); Specific Gravity - Urine 1.025 (1.005-1.025); UMIC TRIGGER UACC YES; Urine Blood Negative (Negative); Urine Ketones Negative (Negative); Urine Protein Trace mg/dL (Neg-Trace)
[2024-03-02 16:13] LABS: Basophils Percent Auto 0.5 % (0-2); Eosinophils Absolute Auto 0.1 X10*3/uL (0.0-0.4); Eosinophils Percent Auto 1.5 % (0-4); Hematocrit 40.7 % (37.0-47.0); Imm Gran Abs Auto 0.02 X10*3/uL (0.00-0.03); Imm Gran Pct Auto 0.3 % (0.0-0.4); Lymphocytes Absolute Auto 2.1 X10*3/uL (1.2-4.9); Lymphocytes Percent Auto 34.8 % (20-40); Mean Corpuscular HGB Conc 31.9 g/dl (31.0-35.0); Mean Corpuscular Hemoglobin 26.7 pg (27.0-33.0); Mean Corpuscular Volume 83.7 fL (80.0-98.0); Mean Platelet Volume 11.3 fL (9.4-12.3); Monocytes Absolute Auto 0.4 X10*3/uL (0.1-1.2); Monocytes Percent Auto 6.8 % (2-11); Neutrophils Absolute Auto 3.4 x10*3/uL (2.0-8.3); Neutrophils Percent Auto 56.1 % (45-73); Platelet Count 243 X10*3/uL (160-400); Red Blood Count 4.86 X10*6/uL (4.20-5.50); Red Cell Distribution Width 13.6 % (11.0-16.0); White Blood Count 6.1 X10*3/uL (4.8-10.8)
[2024-03-02 16:15] LABS: Bacteria Urine None Seen (None Seen); Hyaline Casts Urine 0-2 /LPF (0-2); RBC Urine 0-2 /HPF (0-2); Squamous Epithelial Cell Urine 0-2 /HPF (0-2); WBC Urine 0-5 /HPF (0-5)
[2024-03-02 16:23] LABS: Alanine Aminotransferase 24 U/L (0-31); Albumin Level 4.3 g/dL (3.5-5.0); Alkaline Phosphatase 62 U/L (39-117); Anion Gap 12 (12-20); Aspartate Amino Transferase 20 U/L (5-31); Bilirubin Total 0.7 mg/dL (0.0-1.0); Blood Urea Nitrogen 18 mg/dL (9-16); Calcium 10.5 mg/dL (8.4-10.2); Carbon Dioxide 28 mmol/L (22-29); Chloride 105 mmol/L (96-108); Cholesterol 254 mg/dL (<200); Estimated Glomerular Filt Rate > 60; Glucose Fasting 112 mg/dL (60-99); HDL Cholesterol 64 mg/dL (>40); LDL Cholesterol Calculated 138 mg/dL (<100); Potassium 4.4 mmol/L (3.3-5.1); Sodium 141 mmol/L (135-145); Total Protein 7.2 g/dL (6.5-8.0); Triglycerides 263 mg/dL (<150)
[2024-03-02 16:41] LABS: Ferritin 239 ng/mL (10-250)
[2024-03-02 17:10] LABS: TSH reflex Free T4 1.66 uIU/mL (0.32-4.0)
[2024-03-06 13:53] LABS: Vitamin D 25-OH, D2 <4 ng/mL; Vitamin D 25-OH, D3 64 ng/mL; Vitamin D 25-OH, Total 64 ng/mL (30-100)
== END 2024-03-02 12:49 | disposition home or self-care (01) ==
LOC: HO.HMGCLDS 12:48
PROVIDERS: PCP Internal Medicine; Visit Provider Internal Medicine
DX: Z00.01 Encounter for general adult medical examination with abnormal findings (principal); I10 Essential (primary) hypertension; F33.1 Major depressive disorder, recurrent, moderate; J45.40 Moderate persistent asthma, uncomplicated; F41.0 Panic disorder [episodic paroxysmal anxiety]; R79.89 Other specified abnormal findings of blood chemistry; E83.52 Hypercalcemia; J90 Pleural effusion, not elsewhere classified; F41.1 Generalized anxiety disorder
CPT/HCPCS: 36415; 80053; 80061; 81001; 81256; 82306; 82728; 84443; 85025

== ENCOUNTER 2024-03-23 12:32 | Outpatient (AMB) | payer MEDICARE, MEDICAID, SELFPAY ==
[2024-03-23 13:11] VITALS: BP 130/60; PULSE 76; BMI 23.6
--- NOTE | 2024-03-23 13:11 | MHC.OFFVIS ---
Vital Signs 03/23/24 13:11 Height 5 ft 2 in Weight 129 lb 3.054 oz BMI 23.6 BP 130/60 Blood Pressure Location Lt brachial Position Sitting Pulse 76 Pulse Source Pulse Oximeter Intake Visit Reasons: f/up- after testing Intake Note: f/up- after testing Complex Care Nurse Required: No Accompanied by: Self / Same As Patient Allergies Penicillins Allergy (Unknown, Verified 02/28/24 10:54) Unknown lisinopril Adverse Reaction (Unknown, Verified 02/28/24 10:54) cough Medication List - Last Reconciled 03/23/24 by Dmitry Gibbs MD acetaminophen 500 mg PO Q6H PRN 90 days albuterol sulfate 0.63 mg (3 mL) inhalation QID PRN 90 days albuterol sulfate 90 mcg/actuation (Ventolin HFA) 1 inh inhalation QID PRN 30 days cholecalciferol (vitamin D3) 50 mcg PO DAILY 90 days fluticasone propionate 250 mcg/actuation (Flovent Diskus) 1 inh inhalation BID 90 days ibuprofen 800 mg PO Q8H lorazepam 0.5 mg PO DAILY PRN losartan-hydrochlorothiazide 100-25 mg 1 tab PO DAILY 90 days tramadol 50 mg PO TID 5 days HPI Comments Details: Pleasant 63 year female who is here for follow-up. She was seen in the hospital in 11/04/2023 when she presented with colonoscopy and the ECG was noticed to be abnormal. She had ST depressions in the lateral leads with QTC of 494. Repeat ECG showed precordial T-wave inversions with ST depressions. She had no symptoms. She had echocardiography done which showed mild left ventricular hypertrophy with hyperdynamic LV function. She is back for follow-up today. She has no chest discomfort shortness of breath in her day-to-day life. Blood pressure is well controlled. She was planned to do a stress test but she had some rib pain and this was canceled. She is saying she has recovered and is ready to the stress test at this stage. She is still is due to get the colonoscopy. [facility] Medical History Endometrial cancer Anxiety Depression, major, recurrent Hypertension, essential Surgical History History of esophagogastroduodenoscopy (EGD) Hx of tubal ligation History of colonoscopy History of section Family History (Reviewed 03/23/24 @ 13:15 by Marcy Ruiz [facility]) Father No problems noted. Mother HTN (hypertension) Diabetes mellitus Sister Metastatic cancer Sister Brain cancer Maternal Grandfather No problems noted. Maternal Grandmother No problems noted. Paternal Grandfather No problems noted. Paternal Grandmother No problems noted. Social History (Reviewed 03/23/24 @ 13:15 by Marcy Ruiz [facility]) Housing: House Alcohol intake: current Alcohol intake frequency: holidays/special occasions only Patient Tobacco Use Status: Former Tobacco user e-Cigarette/Vaping Use: Never Used service: No Current occupational status: employed Cognitive needs: No Hearing needs: No Vision needs: No Review of Systems Const Denies chills, Denies fatigue, Denies fever(s), Denies frequent falls, Denies weakness, Denies weight gain and Denies weight loss ENT Denies dizziness Card Denies chest pain, Denies leg edema, Denies lightheadedness, Denies palpitations, Denies dyspnea and Denies dyspnea on exertion Resp Denies cough, Denies dyspnea and Denies dyspnea on exertion GI Denies hematochezia Musc Denies abnormal gait, Denies muscle weakness, Denies numbness, Denies radiating pain into limb and Denies tingling Neuro Denies abnormal gait, Denies dizziness, Denies frequent falls, Denies numbness, Denies tingling and Denies weakness Endo Denies fatigue and Denies palpitations Physical Exam Vital Signs: Last Vital Signs Pulse 76 03/23/24 13:11 BP 130/60 03/23/24 13:11 BMI result Body Mass Index 23.6 GENERAL APPEARANCE: in no acute distress, pleasant. NECK: no carotid bruit, no jugular venous distention. SKIN: no suspicious lesions, warm and dry. HEART: no murmurs, regular rate and rhythm. LUNGS: clear to auscultation bilaterally. ABDOMEN: soft, nontender. EXTREMITIES: no edema. PERIPHERAL PULSES: equal. NEUROLOGIC: No gross deficits, AAO X 3 Assessment & Plan Assessment & Plan (1) Hypertension, essential: Code(s): I10 - Essential (primary) hypertension Category: Medical (2) Abnormal ECG: Code(s): R94.31 - Abnormal electrocardiogram [ECG] [EKG] Category: Medical (3) Preop cardiovascular exam: Code(s): Z01.810 - Encounter for preprocedural cardiovascular examination Category: Medical Plan 63 year female who was seen for abnormal ECG before colonoscopy. The colonoscopy was canceled. She had ST depressions followed by T-wave inversions on the ECG without any symptoms. Echocardiography has shown mild left ventricular hypertrophy with hyperdynamic LV function. She is denying any symptoms. She was due to get stress testing after that but it appears she had some rib pain and the stress test was canceled. I have advised her to do exercise stress echocardiogram. We will arrange this for her. After that we will clear her for colonoscopy. Blood pressure is well controlled. She will follow-up with us in 4 months. Thank you for allowing me to participate in the care of your patient. Please feel free to contact me if you have any questions. Orders: Orders CA echo stress exercise w con Today R94.31 - Abnormal electrocardiogram [ECG] [EKG] Coding Level of Care Code Est Pt Level 4 (39326) Complex EM visit Add On G2211 Diagnoses Hypertension, essential I10 Abnormal ECG R94.31 Preop cardiovascular exam Z01.810
== END 2024-03-23 13:46 | disposition home or self-care (01) ==
PROVIDERS: PCP Internal Medicine; Visit Provider Internal Medicine Cardiovascular Disease
DX: I10 Essential (primary) hypertension (principal); R94.31 Abnormal electrocardiogram [ECG] [EKG]; Z01.810 Encounter for preprocedural cardiovascular examination
CPT/HCPCS: 99214; G2211

== ENCOUNTER → 2024-03-23 12:32 | Outpatient (BNVA) | payer MEDICARE, MEDICAID, SELFPAY | PROVIDERS: PCP Internal Medicine; Visit Provider Internal Medicine Cardiovascular Disease | DX: Z01.810 Encounter for preprocedural cardiovascular examination (principal); I10 Essential (primary) hypertension; R94.31 Abnormal electrocardiogram [ECG] [EKG] | CPT/HCPCS: 99212 ==

== ENCOUNTER 2024-05-20 09:06 | Outpatient (AMB) | payer MEDICARE, MEDICAID, SELFPAY ==
--- NOTE | 2024-05-20 09:07 | MHC.OFFWIV ---
Intake Vital Signs 05/20/24 09:08 Weight 129 lb BP 118/70 Blood Pressure Location Rt brachial Position Sitting Pulse 66 Pulse Source Pulse Oximeter Temp 97.9 F Temp Source Oral Pulse Oximetry (%) 99 Oxygen Delivery Method Room Air Intake Visit Reasons: EP cough, wheezing, toe pain Intake Note: Patient here for cough, wheezing that started about 1 week ago. she also wanted to mention that her right toe nail fell off last night and also has a couple of other toe nails that are falling off as well. Patient Tobacco Use Status: Former Tobacco user Allergies Penicillins Allergy (Unknown, Verified 05/20/24 09:09) Unknown lisinopril Adverse Reaction (Unknown, Verified 05/20/24 09:09) cough Do you need a note to return to daycare/school/sports/work: No HPI EP cough, wheezing, toe pain HPI Details This note is constructed using voice recognition software. While every effort has been made to ensure accuracy, speedometer mechanic errors may have been included. The patient is a 64 year old female who presents to the clinic today with wheeze and cough for over one-week. She notes that she was recently in [place], where she developed an upper respiratory infection. She never had coughing, and she rested for 2 days while there. She came home and continues to have coughing, and wheezing. She is not taking any medication to help it other than her albuterol inhaler. She reports that her albuterol inhaler is not always working, the pump part seems not to give a dose each time. She denies fever, chills, shortness of breath. [facility] Medical History Endometrial cancer Anxiety Depression, major, recurrent Hypertension, essential Surgical History History of esophagogastroduodenoscopy (EGD) Hx of tubal ligation History of colonoscopy History of section Family History Father No problems noted. Mother HTN (hypertension) Diabetes mellitus Sister Metastatic cancer Sister Brain cancer Maternal Grandfather No problems noted. Maternal Grandmother No problems noted. Paternal Grandfather No problems noted. Paternal Grandmother No problems noted. Social History Housing: House Alcohol intake: current Alcohol intake frequency: holidays/special occasions only Patient Tobacco Use Status: Former Tobacco user e-Cigarette/Vaping Use: Never Used service: No Current occupational status: employed Cognitive needs: No Hearing needs: No Vision needs: No Review of Systems Const All systems reviewed & are unremarkable except as noted in HPI and below Physical Exam Vital Signs: Last Vital Signs Temp 97.9 F 05/20/24 09:08 Pulse 66 05/20/24 09:08 BP 118/70 05/20/24 09:08 Pulse Ox 99 05/20/24 09:08 Oxygen Delivery Method Room Air 05/20/24 09:08 Const General: cooperative, healthy appearing, comfortable and no acute distress Orientation/consciousness: patient oriented x3 Limitations: no limitations HEENT Head: Yes normal to inspection Ears: hearing grossly normal bilaterally, external ears normal and TM's normal bilaterally General nose exam: Normal external nose present, Normal nares present and No nasal discharge present Face and sinus: Yes normal facial exam and Yes sinuses nontender Mouth: Normal oral and palatal mucosa present and moist mucous membranes Throat: Yes tonsils normal, Yes uvula midline and Yes posterior oropharynx abnormal (Erythema) Eyes General: appearance normal, both eyes and all related structures Neck Neck: Yes normal visual inspection Resp Effort & Inspection: normal respiratory effort, able to speak in complete sentences, Actively coughing, no respiratory distress, not tachypneic, no tripod positioning and no use of accessory muscles Auscultation: rhonchi (And tight, which clears with cough) Cardio Jugular venous distension: no JVD Rate: regular rate Rhythm: regular rhythm Heart sounds: S1 normal heart sound present, S2 normal heart sound present, no click, no gallops, no murmurs and no rubs Skin General skin exam: no rashes or lesions noted, elasticity normal and turgor normal Neuro General: patient oriented x3 Extrem General: Yes normal to inspection and Yes no clubbing, cyanosis or edema Assessment & Plan Assessment & Plan (1) Asthma exacerbation: Code(s): J45.901 - Unspecified asthma with (acute) exacerbation Qualifiers: Asthma severity: mild Asthma persistence: intermittent Qualified Code(s): J45.21 - Mild intermittent asthma with (acute) exacerbation Plan: Prednisone burst provided for symptomatic management, refill provided of albuterol inhaler. Advised patient to follow up with worsening symptoms including dyspnea at rest. (2) URI (upper respiratory infection): Code(s): J06.9 - Acute upper respiratory infection, unspecified Qualifiers: URI type: unspecified URI Qualified Code(s): J06.9 - Acute upper respiratory infection, unspecified Plan: Viral swab deferred due to timeline since symptom onset. Advised mask wearing while symptomatic and quarantine per current CDC guidelines. Reviewed at home support methods including hydration, humidification, vix vapor rub, sinus rinse, and otc treatment options. Advised follow up with worsening symptoms such as dyspnea at rest, which would require emergent evaluation. Plan See above for full details and plan. Medications: New prednisone 40 mg (2 x 20 mg) PO DAILY 5 days 10 tabs 0RF Refilled albuterol sulfate 90 mcg/actuation (Ventolin HFA) 1 inh inhalation QID 30 days PRN 18 grams 0RF shortness of breath or wheezing Coding Level of Care Code Est Pt Level 3 (45397) Diagnoses Mild intermittent asthma with exacerbation J45.21 Asthma severity: mild Asthma persistence: intermittent Upper respiratory tract infection, unspecified type J06.9 URI type: unspecified URI
[2024-05-20 09:08] VITALS: BP 118/70; PULSE 66; TEMP 36.6; O2SAT 99
== END 2024-05-20 09:42 | disposition home or self-care (01) ==
PROVIDERS: PCP Internal Medicine; Visit Provider Registered Nurse
DX: J45.21 Mild intermittent asthma with (acute) exacerbation (principal); J06.9 Acute upper respiratory infection, unspecified

== ENCOUNTER → 2024-05-20 09:06 | Outpatient (BNVA) | payer MEDICARE, MEDICAID, SELFPAY | PROVIDERS: PCP Internal Medicine; Visit Provider Registered Nurse | DX: J45.21 Mild intermittent asthma with (acute) exacerbation (principal); J06.9 Acute upper respiratory infection, unspecified | CPT/HCPCS: 99212 ==

== ENCOUNTER 2024-06-04 08:40 | Outpatient (AMB) | payer MEDICARE, MEDICAID, SELFPAY ==
--- NOTE | 2024-06-04 08:49 | MHC.PC.OV ---
Intake Visit Reasons: Discuss Jury duty Letter Allergies Penicillins Allergy (Unknown, Verified 06/04/24 08:49) Unknown lisinopril Adverse Reaction (Unknown, Verified 06/04/24 08:49) cough Medication List - Last Reconciled 06/05/24 by Erika Vyas MD acetaminophen 500 mg PO Q6H PRN 90 days albuterol sulfate 0.63 mg (3 mL) inhalation QID PRN 90 days albuterol sulfate 90 mcg/actuation (Ventolin HFA) 1 inh inhalation QID PRN 30 days cholecalciferol (vitamin D3) 50 mcg PO DAILY 90 days fluticasone propionate 250 mcg/actuation (Flovent Diskus) 1 inh inhalation BID 90 days ibuprofen 800 mg PO Q8H lorazepam 0.5 mg PO DAILY PRN losartan-hydrochlorothiazide 100-25 mg 1 tab PO DAILY 90 days tramadol 50 mg PO TID 5 days Tobacco use date assessed: 06/04/24 Fall risk assessment: No Falls in past year Last assessed Fall Risk: 06/04/24 Dental Screening Dental Screen Date: 06/04/24 Did you have a dental visit in the last 12 months?: Yes Did you have a dental problem in the last 6 months where you did not have access to dental care?: No Was dental information given to patient?: Patient has dentist HPI Discuss Jury duty Letter HPI Details Chief Complaint The patient experiences anxiety in social settings, particularly related to jury duty. History of Present Illness The patient is a 64-year-old female presenting with anxiety symptoms associated with jury duty. She describes feelings of anxiety and panic when considering the prospect of sitting among strangers for extended periods. The anxiety provokes symptoms such as hand tremors and dyspnea. Although the exact duration of these symptoms is not specified, the patient expresses these occurrences as long-standing and significant enough to impact her daily life and responsibilities. She mentioned the requirement of responding to a jury duty notice within ten days, which has heightened her anxiety. There were no other past medical or family history, medications, or interventions discussed related to this psychological issue. Review of Systems - Psychiatric: Reports anxiety when in social situations, particularly related to jury duty. 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 I suggested visiting the office on the 01 of July as previously scheduled for further evaluation and discussed acquiring necessary documentation to address the jury duty concern. [facility] Medical History Endometrial cancer Anxiety Depression, major, recurrent Hypertension, essential Surgical History History of esophagogastroduodenoscopy (EGD) Hx of tubal ligation History of colonoscopy History of section Family History Father No problems noted. Mother HTN (hypertension) Diabetes mellitus Sister Metastatic cancer Sister Brain cancer Maternal Grandfather No problems noted. Maternal Grandmother No problems noted. Paternal Grandfather No problems noted. Paternal Grandmother No problems noted. Social History Housing: House Alcohol intake: current Alcohol intake frequency: holidays/special occasions only Patient Tobacco Use Status: Former Tobacco user e-Cigarette/Vaping Use: Never Used service: No Current occupational status: employed Cognitive needs: No Hearing needs: No Vision needs: No Questionnaire Thrive Questionnaire Date Thrive assessed: 02/28/24 AUDIT C Alcohol Use Questionnaire (AUDIT-C) 1. How often do you have a drink containing alcohol?: Never 3. How often do you have six or more drinks on one occasion?: Never Total Score: 0 Score Reviewed/Action Taken: Yes EDITH-7 AMB Questionnaire EDITH-7 Date EDITH - 7 assessed: 02/28/24 Source: Developed by Drs. Russell Ascencio, Akanksha Schroeder, Binu Jesus and colleagues, with an educational mayur from [employer]. Review of Systems Const Denies chills and Denies fever(s) ENT Denies epistaxis and Denies nasal discharge Card Denies chest pain Resp Denies chest congestion, Denies cough and Denies hemoptysis GI Denies diarrhea and Denies nausea Skin/Breast Denies rash Neuro Reports no additional complaints Psych Reports no additional complaints Endo Reports no additional complaints Physical exam (Primary Care) Tobacco/Smoking Status: Tobacco use Status Tobacco use date assessed 06/04/24 06/04/24 08:50 Patient Tobacco Use Status Former Tobacco user 06/04/24 08:50 e-Cigarette/Vaping Use Never Used 06/04/24 08:50 Thrive Assessment: Date of Thrive Assessment Date Thrive assessed 02/28/24 06/04/24 08:50 Telehealth Telehealth Telehealth Platform: [employer] Location of provider rendering services: practice address Location of patient: address on file Patient Identification confirmed using: Name, : Yes Telehealth method: voice only Patient verbally consented to treatment: Yes Patient verbally consented to billing insurance company: Yes Patient informed of any privacy concerns related to visit: Yes Minutes spent on Phone/Video with Pt.: 13 Coding Level of Care Code Tele Est Pt Level 3 (09829) Diagnoses Panic anxiety syndrome F41.0 Assessment & Plan Assessment & Plan (1) Panic anxiety syndrome: Code(s): F41.0 - Panic disorder [episodic paroxysmal anxiety] Category: Medical Plan Chief Complaint The patient experiences anxiety in social settings, particularly related to jury duty. History of Present Illness The patient is a 64-year-old female presenting with anxiety symptoms associated with jury duty. She describes feelings of anxiety and panic when considering the prospect of sitting among strangers for extended periods. The anxiety provokes symptoms such as hand tremors and dyspnea. Although the exact duration of these symptoms is not specified, the patient expresses these occurrences as long-standing and significant enough to impact her daily life and responsibilities. She mentioned the requirement of responding to a jury duty notice within ten days, which has heightened her anxiety. There were no other past medical or family history, medications, or interventions discussed related to this psychological issue. Review of Systems - Psychiatric: Reports anxiety when in social situations, particularly related to jury duty. 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 I suggested visiting the office on the 01 of July as previously scheduled for further evaluation and discussed acquiring necessary documentation to address the jury duty concern.
== END 2024-06-04 10:52 | disposition home or self-care (01) ==
LOC: HO.HMCC 08:40
PROVIDERS: PCP Internal Medicine; Visit Provider Internal Medicine
DX: F41.0 Panic disorder [episodic paroxysmal anxiety] (principal)

== ENCOUNTER 2024-07-01 13:38 | Outpatient (AMB) | payer MEDICARE, MEDICAID, SELFPAY ==
--- NOTE | 2024-07-01 13:40 | A.OFFPC_ITS ---
Vital Signs 07/01/24 13:43 Height 5 ft 2 in Weight 129 lb 2 oz BMI 23.6 BP 124/70 Blood Pressure Location Rt brachial Position Sitting Pulse 77 Pulse Source Pulse Oximeter Pulse Oximetry (%) 97 Oxygen Delivery Method Room Air Intake Visit Reasons: 4 months f/up Allergies Penicillins Allergy (Unknown, Verified 07/01/24 13:44) Unknown lisinopril Adverse Reaction (Unknown, Verified 07/01/24 13:44) cough Medication List - Last Reconciled 07/01/24 by Erika Vyas MD acetaminophen 500 mg PO Q6H PRN 90 days albuterol sulfate 0.63 mg (3 mL) inhalation QID PRN 90 days albuterol sulfate 90 mcg/actuation (Ventolin HFA) 1 inh inhalation QID PRN 30 days cholecalciferol (vitamin D3) 50 mcg PO DAILY 90 days fluticasone propionate 250 mcg/actuation (Flovent Diskus) 1 inh inhalation BID 90 days ibuprofen 800 mg PO Q8H lorazepam 0.5 mg PO DAILY PRN losartan-hydrochlorothiazide 100-25 mg 1 tab PO DAILY 90 days tramadol 50 mg PO TID 5 days Tobacco use date assessed: 07/01/24 Fall risk assessment: No Falls in past year Last assessed Fall Risk: 07/01/24 Dental Screening Dental Screen Date: 07/01/24 Did you have a dental visit in the last 12 months?: No Did you have a dental problem in the last 6 months where you did not have access to dental care?: No Was dental information given to patient?: Patient has dentist HPI 4 months f/up HPI Details - The patient is a 64-year-old female pr esenting for medication review, hypertension and blood sugar monitoring. - Asthma: Managed with Flovent. Symptoms occur when physically active. Patient prefers using the non-powder inhaler. - Essential Hypertension: Currently cont rolled with medication. Noted occasional dizziness. Advised to reduce dose to half a tablet and monitor blood pressure at home. - Anxiety Disorder: Previously prescribe d Lorazepam, experiences less frequent anxiety episodes now. Requests refill for just in case. - Back Pain: Intermittent, managed effec tively with Ibuprofen (300 mg). Pain does not occur frequently. - Hyperglycemia: Fasting blood glucose w as 112 in February lab results, indicating risk for developing diabetes. Patient avoids sugary foods, consumes zero sugar soda occasionally. - Previous Episode of Dizziness: Attribu jose maria to blood pressure fluctuations, advised to reduce dosage of medication. Problem List - Asthma - Essential Hypertension - Anxiety Disorder - Back Pain - Hyperglycemia (Fasting Sugar at Risk Bhakti mccullough) - Previous Episode of Dizziness Patient Instructions - Continue asthma management as needed w ith Flovent. - Take half a tablet of blood pressure m edication and monitor blood pressure at home, ensuring it is below 140. - Avoid high sugar foods and beverages; maintain current low sugar intake practices. - Take Ibuprofen for back pain as needed , not regularly. - Refill and keep Lorazepam on hand for potential anxiety episodes. - Schedule and complete recommended bloo d tests prior to the next appointment. Review of Systems - Respiratory: Reports asthma symptoms w hen physically active. - Cardiovascular: Reports dizziness asso ciated with high blood pressure. - Musculoskeletal: Reports back pain, ma naged with Ibuprofen. - Neurological: Denies other neurologica l symptoms beyond occasional dizziness. - Psychiatric: Reports occasional anxiet y, managed with Lorazepam as needed. - General: No fever no chills - Ear nose throat: No sore throat no hearing difficulty no ear pain - Gastrointestinal: No nausea vomiting or diarrhea - Endocrine: No polyuria polydipsia no heat intolerance - Genitourinary: No dysuria , no blood in urine Physical Exam General: No acute distress HEENT: No acute findings Neck: Supple Respiratory system: Able to talk in full sentences, no audible wheeze, reports feeling short of breath when close to people cardiovascular: S1-S2 regular in rate and rhythm Gastrointestinal: No pain Extremities: No new findings J[employer]EL[employer]: Alert awake oriented x3 motor sensory intact, reports dizziness Skin: Normal turgor, reports sweating when anxious [facility] Medical History Endometrial cancer Anxiety Depression, major, recurrent Hypertension, essential Surgical History History of esophagogastroduodenoscopy (EGD) Hx of tubal ligation History of colonoscopy History of section Family History Father No problems noted. Mother HTN (hypertension) Diabetes mellitus Sister Metastatic cancer Sister Brain cancer Maternal Grandfather No problems noted. Maternal Grandmother No problems noted. Paternal Grandfather No problems noted. Paternal Grandmother No problems noted. Social History Housing: House Alcohol intake: current Alcohol intake frequency: holidays/special occasions only Patient Tobacco Use Status: Former Tobacco user e-Cigarette/Vaping Use: Never Used service: No Current occupational status: employed Cognitive needs: No Hearing needs: No Vision needs: No Questionnaire PHQ-9 Over the last 2 weeks, how often have you been bothered by any of the following problems? 1. Little interest or pleasure in doing things: not at all 2. Feeling down, depressed, or hopeless: several days 3. Trouble falling or staying asleep, or sleeping too much: not at all 4. Feeling tired or having little energy: not at all 5. Poor appetite or overeating: not at all 6. Feeling bad about yourself - or that you are a failure or have let yourself or your family down: not at all 7. Trouble concentrating on things, such as reading the newspaper or watching television: not at all 8. Moving or speaking so slowly that other people could have noticed. Or the opposite - being so fidgety or restless that you have been moving around a lot more than usual: not at all 9. Thoughts that you would be better off or of hurting yourself in some way: not at all Total score: 1 Depression Screening Interpretation: Negative Depression Screening Done: Yes 15164 - PHQ-9 Billing: Yes Source: Developed by Drs. Russell Ascencio, Akanksha Schroeder, Binu Jesus and colleagues, with an educational mayur from [employer]. Thrive Questionnaire Date Thrive assessed: 07/01/24 I am a: Patient What is your living situation today?: I have a steady place to live Within the past 12 months, did the food you bought not last and you didn't have the money to get more?: Sometimes True Within the past 12 months, did you worry whether your food would run out before you got money to buy more?: Sometimes True Do you have trouble paying for medicines?: No Do you have trouble getting transportation to medical appointments?: I choose not to answer this question Do you have trouble paying your heating and electricity bill?: I choose not to answer this question Do you have trouble taking care of your child, family member or friend?: No Do you have trouble with day-to-day activities such as bathing, preparing meals, shopping, managing finances, etc.?: No Are you currently unemployed and looking for a job?: No Are you interested in more education?: No Please select the resources that you would like help with: None Currently or been in a relationship where the following occur: I choose not to answer THRIVE Score: 2 AUDIT C Alcohol Use Questionnaire (AUDIT-C) 1. How often do you have a drink containing alcohol?: Monthly or less 2. How many drinks containing alcohol do you have on a typical day when you are drinking?: 1 or 2 3. How often do you have six or more drinks on one occasion?: Never Total Score: 1 Score Reviewed/Action Taken: Yes EDITH-7 AMB Questionnaire EDITH-7 Date EDITH - 7 assessed: 07/01/24 Feeling nervous, anxious, or on edge: 1 = Several days Not being able to stop or control worryin = Not at all Worrying too much about different things: 0 = Not at all Trouble relaxin = Not at all Being so restless that it is hard to sit still: 0 = Not at all Becoming easily annoyed or irritable: 0 = Not at all Feeling afraid as if something awful might happen: 0 = Not at all Total EDITH-7 score (0-4 normal; 5-9 mild; 10-14 moderate; 15-21 severe): 1 Source: Developed by Drs. Russell Ascencio, Akanksha Schroeder, Binu Jesus and colleagues, with an educational mayur from [employer]. EDITH-7 Assessment Billing EDITH-7 Assessment Tool: EDITH-7 Assessment 04987 Physical exam (Primary Care) Vital Signs: Last Vital Signs Pulse 77 07/01/24 13:43 BP 124/70 07/01/24 13:43 Pulse Ox 97 07/01/24 13:43 Oxygen Delivery Method Room Air 07/01/24 13:43 BMI result Body Mass Index 23.6 Tobacco/Smoking Status: Tobacco use Status Tobacco use date assessed 07/01/24 07/01/24 13:45 Patient Tobacco Use Status Former Tobacco user 07/01/24 13:41 e-Cigarette/Vaping Use Never Used 07/01/24 13:41 PHQ-9: PHQ-9 Score PHQ-9: Total score 1 07/01/24 13:45 Depression Screening Interpretation: Negative Thrive Assessment: Date of Thrive Assessment Date Thrive assessed 07/01/24 07/01/24 13:45 Currently or been in a relationship where the following occur: I choose not to answer Coding Level of Care Code Est Pt Level 4 (69175) Complex EM visit Add On G2211 Diagnoses Hypertension, essential I10 Right lumbar radiculitis M54.16 Moderate persistent asthma without complication J45.40 Asthma complication type: uncomplicated Panic anxiety syndrome F41.0 LFT elevation R79.89 Serum calcium elevated E83.52 Pre-diabetes R73.03 Additional Codes EDITH-7 Assessment Billing - EDITH-7 Assessment Tool: EDITH-7 Assessment 11854 ([id number]) PHQ-9 - 81443 - PHQ-9 Billing: Yes ([id number]) Assessment & Plan Assessment & Plan (1) Hypertension, essential: Code(s): I10 - Essential (primary) hypertension Category: Medical (2) Right lumbar radiculitis: Code(s): M54.16 - Radiculopathy, lumbar region Category: Medical (3) Asthma, moderate persistent: Code(s): J45.40 - Moderate persistent asthma, uncomplicated Category: Medical Qualifiers: Asthma complication type: uncomplicated Qualified Code(s): J45.40 - Moderate persistent asthma, uncomplicated (4) Panic anxiety syndrome: Code(s): F41.0 - Panic disorder [episodic paroxysmal anxiety] Category: Medical (5) LFT elevation: Code(s): R79.89 - Other specified abnormal findings of blood chemistry Category: Medical (6) Serum calcium elevated: Code(s): E83.52 - Hypercalcemia Category: Medical (7) Pre-diabetes: Code(s): R73.03 - Prediabetes Category: Medical Plan - The patient is a 64-year-old female presenting for medication review, hypertension and blood sugar monitoring. - Asthma: Managed with Flovent. Symptoms occur when physically active. Patient prefers using the non-powder inhaler. - Essential Hypertension: Currently controlled with medication. Noted occasional dizziness. Advised to reduce dose to half a tablet and monitor blood pressure at home. - Anxiety Disorder: Previously prescribed Lorazepam, experiences less frequent anxiety episodes now. Requests refill for just in case. - Back Pain: Intermittent, managed effectively with Ibuprofen (300 mg). Pain does not occur frequently. - Hyperglycemia: Fasting blood glucose was 112 in February lab results, indicating risk for developing diabetes. Patient avoids sugary foods, consumes zero sugar soda occasionally. - Previous Episode of Dizziness: Attributed to blood pressure fluctuations, advised to reduce dosage of medication. - last set of lab order reviewed done in February, calcium level has come down from before but still slightly elevated -fasting sugar 112 patient is prediabetic Problem List - Asthma - Essential Hypertension - Anxiety Disorder - Back Pain - Hyperglycemia (Fasting Sugar at Risk Level) - Previous Episode of Dizziness Patient Instructions - Continue asthma management as needed with Flovent. - Take half a tablet of blood pressure medication and monitor blood pressure at home, ensuring it is below 140. - Avoid high sugar foods and beverages; maintain current low sugar intake practices. - Take Ibuprofen for back pain as needed, not regularly. - Refill and keep Lorazepam on hand for potential anxiety episodes. - Schedule and complete recommended blood tests prior to the next appointment. Follow-up 3-4 months labs are needed before visit order placed Orders: Orders Hemoglobin A1c Today E83.52 - Hypercalcemia, F41.0 - Panic disorder [episodic paroxysmal anxiety], I10 - Essential (primary) hypertension, J45.40 - Moderate persistent asthma, uncomplicated, M54.16 - Radiculopathy, lumbar region, R73.03 - Prediabetes, R79.89 - Other specified abnormal findings of blood chemistry Complete Blood Count Auto Diff Today E83.52 - Hypercalcemia, F41.0 - Panic disorder [episodic paroxysmal anxiety], I10 - Essential (primary) hypertension, J45.40 - Moderate persistent asthma, uncomplicated, M54.16 - Radiculopathy, lumbar region, R73.03 - Prediabetes, R79.89 - Other specified abnormal findings of blood chemistry Comprehensive Chestnut. Panel Fast Today E83.52 - Hypercalcemia, F41.0 - Panic disorder [episodic paroxysmal anxiety], I10 - Essential (primary) hypertension, J45.40 - Moderate persistent asthma, uncomplicated, M54.16 - Radiculopathy, lumbar region, R73.03 - Prediabetes, R79.89 - Other specified abnormal findings of blood chemistry Lipid Panel Today E83.52 - Hypercalcemia, F41.0 - Panic disorder [episodic paroxysmal anxiety], I10 - Essential (primary) hypertension, J45.40 - Moderate persistent asthma, uncomplicated, M54.16 - Radiculopathy, lumbar region, R73.03 - Prediabetes, R79.89 - Other specified abnormal findings of blood chemistry Vitamin D 25-OH (D2 and D3) Today E83.52 - Hypercalcemia, F41.0 - Panic disorder [episodic paroxysmal anxiety], I10 - Essential (primary) hypertension, J45.40 - Moderate persistent asthma, uncomplicated, M54.16 - Radiculopathy, lumbar region, R73.03 - Prediabetes, R79.89 - Other specified abnormal findings of blood chemistry TSH reflex Free T4 Today E83.52 - Hypercalcemia, F41.0 - Panic disorder [episodic paroxysmal anxiety], I10 - Essential (primary) hypertension, J45.40 - Moderate persistent asthma, uncomplicated, M54.16 - Radiculopathy, lumbar region, R73.03 - Prediabetes, R79.89 - Other specified abnormal findings of blood chemistry Medications: Refilled losartan-hydrochlorothiazide 100-25 mg 1 tab PO DAILY 90 days 90 tabs 1RF lorazepam 0.5 mg PO DAILY PRN 30 tabs 0RF anxiety
[2024-07-01 13:43] VITALS: BP 124/70; PULSE 77; O2SAT 97; BMI 23.6
== END 2024-07-01 14:00 | disposition home or self-care (01) ==
PROVIDERS: PCP Internal Medicine; Visit Provider Internal Medicine
DX: I10 Essential (primary) hypertension (principal); M54.16 Radiculopathy, lumbar region; J45.40 Moderate persistent asthma, uncomplicated; F41.0 Panic disorder [episodic paroxysmal anxiety]; R79.89 Other specified abnormal findings of blood chemistry; E83.52 Hypercalcemia; R73.03 Prediabetes

== ENCOUNTER → 2024-07-01 13:38 | Outpatient (BNVA) | payer MEDICARE, MEDICAID, SELFPAY | PROVIDERS: PCP Internal Medicine; Visit Provider Internal Medicine | DX: I10 Essential (primary) hypertension (principal); F41.9 Anxiety disorder, unspecified; M54.9 Dorsalgia, unspecified; M54.16 Radiculopathy, lumbar region; J45.40 Moderate persistent asthma, uncomplicated; F41.0 Panic disorder [episodic paroxysmal anxiety]; R79.89 Other specified abnormal findings of blood chemistry; J45.909 Unspecified asthma, uncomplicated; E83.52 Hypercalcemia; R73.03 Prediabetes | CPT/HCPCS: 96127; 99212 ==

== ENCOUNTER → 2024-08-24 10:35 | Outpatient (REF) | payer MEDICARE, MEDICAID, SELFPAY ==
--- NOTE | 2024-08-24 10:38 | CA_ITS ---
Acquisition Time: 2024-08-24 11:35:56 Total Exercise Time: 00:04:20 Test Indications: Abnormal ECG Medications: SEE H&P Protocol: INNA Max HR: 176 BPM 114% of Pred: 154 BPM Max BP: 204/80 mmHG Max Work Load: 6.2 METS Exercise stress test with exercise 4 min 20 sec of Inna protocol, achieving 107% MPHR, with report of fatigue, no chest discomfort or sob, without arrythmia, with hypertensive response to exercise, with EKG changes meeting criteria for ischemia: horozontal to upsloping ST depressions, up to 2 mm, inferiorly and V3-V6 with gradual improvement in recovery. Echo images obtained by tech at rest and immediately post peak exercise. Definity contrast used. Test reviewed with Dr Johnston Referred By: Dmitry Gibbs Electronically Signed By: ANTHONY TUTTLE
== END ==
LOC: HO.CARD 10:35
PROVIDERS: PCP Internal Medicine; Visit Provider Internal Medicine Cardiovascular Disease
DX: R94.31 Abnormal electrocardiogram [ECG] [EKG] (principal)
CPT/HCPCS: 93350; Q9957

== ENCOUNTER → 2024-08-24 10:38 | Outpatient (BNV) | payer MEDICARE, MEDICAID, SELFPAY | PROVIDERS: PCP Internal Medicine; Visit Provider Nurse Practitioner Family | DX: R94.31 Abnormal electrocardiogram [ECG] [EKG] (principal) | CPT/HCPCS: 93016; 93018; 93350; 93352 ==

== ENCOUNTER 2024-09-21 11:28 | Outpatient (REF) | payer MEDICARE, MEDICAID, SELFPAY ==
[2024-09-21 13:05] LABS: MANUAL DIFF FLAG NO
[2024-09-21 13:21] LABS: Basophils Absolute Auto 0.1 X10*3/uL (0.0-0.2); Basophils Percent Auto 1.1 % (0-2); Eosinophils Absolute Auto 0.2 X10*3/uL (0.0-0.4); Eosinophils Percent Auto 3.9 % (0-4); Hematocrit 37.3 % (37.0-47.0); Hemoglobin 11.8 g/dl (12.0-16.0); Imm Gran Abs Auto 0.01 X10*3/uL (0.00-0.03); Imm Gran Pct Auto 0.2 % (0.0-0.4); Lymphocytes Absolute Auto 1.5 X10*3/uL (1.2-4.9); Lymphocytes Percent Auto 34.4 % (20-40); Mean Corpuscular HGB Conc 31.6 g/dl (31.0-35.0); Mean Corpuscular Hemoglobin 26.2 pg (27.0-33.0); Mean Corpuscular Volume 82.9 fL (80.0-98.0); Mean Platelet Volume 11.8 fL (9.4-12.3); Monocytes Absolute Auto 0.3 X10*3/uL (0.1-1.2); Monocytes Percent Auto 7.3 % (2-11); Neutrophils Absolute Auto 2.3 x10*3/uL (2.0-8.3); Neutrophils Percent Auto 53.1 % (45-73); Platelet Count 183 X10*3/uL (160-400); Red Cell Distribution Width 13.4 % (11.0-16.0); White Blood Count 4.4 X10*3/uL (4.8-10.8)
[2024-09-21 13:33] LABS: Estimated Average Glucose 120 mg/dL; Hemoglobin A1C 128.8248 umol/L; Hemoglobin A1c % 5.8 % (<6.0); Total Hemoglobin (HGBA1C) 3201.9695 umol/L
[2024-09-21 14:09] LABS: Alanine Aminotransferase 24 U/L (0-31); Alkaline Phosphatase 60 U/L (39-117); Anion Gap 9 (12-20); Aspartate Amino Transferase 28 U/L (5-31); Bilirubin Total 0.9 mg/dL (0.0-1.0); Blood Urea Nitrogen 16 mg/dL (9-16); Calcium 9.5 mg/dL (8.4-10.2); Carbon Dioxide 25 mmol/L (22-29); Chloride 110 mmol/L (96-108); Cholesterol 228 mg/dL (<200); Estimated Glomerular Filt Rate > 60; Glucose Fasting 104 mg/dL (60-99); HDL Cholesterol 52 mg/dL (>40); LDL Cholesterol Calculated 99 mg/dL (<100); Potassium 3.9 mmol/L (3.3-5.1); Sodium 140 mmol/L (135-145); TSH reflex Free T4 2.49 uIU/mL (0.32-4.0); Total Protein 6.5 g/dL (6.5-8.0); Triglycerides 389 mg/dL (<150)
[2024-09-25 16:28] LABS: Vitamin D 25-OH, D2 <4 ng/mL; Vitamin D 25-OH, D3 56 ng/mL; Vitamin D 25-OH, Total 56 ng/mL (30-100)
== END 2024-09-21 11:29 | disposition home or self-care (01) ==
LOC: HO.HMGCLDS 11:28
PROVIDERS: PCP Internal Medicine; Visit Provider Internal Medicine
DX: R73.03 Prediabetes (principal); R79.89 Other specified abnormal findings of blood chemistry; E83.52 Hypercalcemia; F41.0 Panic disorder [episodic paroxysmal anxiety]; J45.40 Moderate persistent asthma, uncomplicated; M54.16 Radiculopathy, lumbar region; I10 Essential (primary) hypertension
CPT/HCPCS: 36415; 80053; 80061; 82306; 83036; 84443; 85025

== ENCOUNTER 2024-10-30 13:40 | Outpatient (AMB) | payer MEDICARE, MEDICAID, SELFPAY ==
[2024-10-30 13:49] VITALS: BP 118/72; PULSE 96; O2SAT 98; BMI 22.7
--- NOTE | 2024-10-30 13:49 | A.OFFPC_ITS ---
Vital Signs 10/30/24 13:49 Height 5 ft 2 in Weight 124 lb 4 oz BMI 22.7 BP 118/72 Blood Pressure Location Rt brachial Position Sitting Pulse 96 Pulse Source Pulse Oximeter Pulse Oximetry (%) 98 Oxygen Delivery Method Room Air Intake Visit Reasons: 4 months f/up Allergies Penicillins Allergy (Unknown, Verified 10/30/24 13:49) Unknown lisinopril Adverse Reaction (Unknown, Verified 10/30/24 13:49) cough Medication List - Last Reconciled 10/30/24 by Erika Vyas MD acetaminophen 500 mg PO Q6H PRN 90 days albuterol sulfate 0.63 mg (3 mL) inhalation QID PRN 90 days albuterol sulfate 90 mcg/actuation (Ventolin HFA) 1 inh inhalation QID PRN 30 days cholecalciferol (vitamin D3) 50 mcg PO DAILY 90 days fluticasone propionate 250 mcg/actuation (Flovent Diskus) 1 inh inhalation BID 90 days ibuprofen 800 mg PO Q8H lorazepam 0.5 mg PO DAILY PRN losartan-hydrochlorothiazide 100-25 mg 1 tab PO DAILY 90 days Tobacco use date assessed: 10/30/24 Fall risk assessment: No Falls in past year Last assessed Fall Risk: 10/30/24 Dental Screening Dental Screen Date: 10/30/24 Did you have a dental visit in the last 12 months?: Yes Did you have a dental problem in the last 6 months where you did not have access to dental care?: No Was dental information given to patient?: Patient has dentist HPI 4 months f/up HPI Details Patient is 64-year-old female came in today for her follow-up appointment Last time seen was June of this year - Asthma: Patient reports needing an alb uterol inhaler for an upcoming trip to [place]. Currently on Flovent and small nebulizer machine if needed - Anemia: Hemoglobin level noted as slig htly low at 11.8 in September. Patient denies visible bleeding but suspects hemorrhoids as a potential cause. - Prediabetes: Mentioned without previou s confirmation; patient was unaware but confirmed as prediabetic. No current medication regimen required per discussion. - Mood Disorder: Patient has history of depressive symptoms with episodes of crying and screaming. Lorazepam to be sent as prescription for anxiety. - Travel Plans: Plans to travel to [place] with a deburring machine operator, potentially aggravating asthma due to weather conditions. No other concerns reported. - Family and Social History: Family hist ory of diabetes noted. Social enjoyment of traveling, plans to visit [place] and [place], shared. - Essential Hypertension: Currently cont rolled with medication. Problem List - Asthma - Anemia - Prediabetes - Mood Disorder with Depression Patient Instructions - Take both the albuterol and your Flove nt inhaler with you to [place]. - Continue monitoring your asthma and us e the nebulizer as needed. - Maintain current weight and lifestyle habits to manage prediabetes. - Obtain labs every six months to monito r prediabetic status. - Use lorazepam as needed for anxiety an d emotional disturbances. - Enjoy safe travels and manage rest wit h planned stops during long trips. Review of Systems - General: No fever no chills - Neurological: No headaches no dizziness - Ear nose throat: No sore throat no hearing difficulty no ear pain - Cardiovascular: No syncope, no chest pain, no palpitations - Gastrointestinal: No nausea vomiting or diarrhea - Endocrine: No polyuria polydipsia no heat intolerance - Genitourinary: No dysuria , no blood in urine Physical Exam General: No acute distress HEENT: No acute findings Neck: Supple Respiratory system: Able to talk in full sentences, no audible wheeze, lungs are clear cardiovascular: S1-S2 regular in rate and rhythm Gastrointestinal: No pain, reports possible hemorrhoids Extremities: No new findings SYNTHETIC CHEMIST: Alert awake oriented x3 motor sensory intact Skin: Normal turgor, PFSH Medical History Endometrial cancer Anxiety Depression, major, recurrent Hypertension, essential Surgical History History of esophagogastroduodenoscopy (EGD) Hx of tubal ligation History of colonoscopy History of section Family History Father No problems noted. Mother HTN (hypertension) Diabetes mellitus Sister Metastatic cancer Sister Brain cancer Maternal Grandfather No problems noted. Maternal Grandmother No problems noted. Paternal Grandfather No problems noted. Paternal Grandmother No problems noted. Social History Housing: House Alcohol intake: current Alcohol intake frequency: holidays/special occasions only Patient Tobacco Use Status: Former Tobacco user e-Cigarette/Vaping Use: Never Used service: No Current occupational status: employed Cognitive needs: No Hearing needs: No Vision needs: No Questionnaire PHQ-9 Over the last 2 weeks, how often have you been bothered by any of the following problems? 1. Little interest or pleasure in doing things: not at all 2. Feeling down, depressed, or hopeless: not at all 3. Trouble falling or staying asleep, or sleeping too much: not at all 4. Feeling tired or having little energy: not at all 5. Poor appetite or overeating: not at all 6. Feeling bad about yourself - or that you are a failure or have let yourself or your family down: not at all 7. Trouble concentrating on things, such as reading the newspaper or watching television: not at all 8. Moving or speaking so slowly that other people could have noticed. Or the opposite - being so fidgety or restless that you have been moving around a lot more than usual: not at all 9. Thoughts that you would be better off or of hurting yourself in some way: not at all Total score: 0 Depression Screening Interpretation: Negative Depression Screening Done: Yes 62416 - PHQ-9 Billing: Yes Source: Developed by Drs. Russell Ascencio, Akanksha Schroeder, Binu Jesus and colleagues, with an educational mayur from [employer]. Thrive Questionnaire Date Thrive assessed: 10/30/24 I am a: Patient What is your living situation today?: I have a steady place to live Within the past 12 months, did the food you bought not last and you didn't have the money to get more?: Sometimes True Within the past 12 months, did you worry whether your food would run out before you got money to buy more?: Sometimes True Do you have trouble paying for medicines?: No Do you have trouble getting transportation to medical appointments?: I choose not to answer this question Do you have trouble paying your heating and electricity bill?: I choose not to answer this question Do you have trouble taking care of your child, family member or friend?: No Do you have trouble with day-to-day activities such as bathing, preparing meals, shopping, managing finances, etc.?: No Are you currently unemployed and looking for a job?: No Are you interested in more education?: No Please select the resources that you would like help with: None Currently or been in a relationship where the following occur: I choose not to answer THRIVE Score: 2 AUDIT C Alcohol Use Questionnaire (AUDIT-C) 1. How often do you have a drink containing alcohol?: Monthly or less 2. How many drinks containing alcohol do you have on a typical day when you are drinking?: 1 or 2 3. How often do you have six or more drinks on one occasion?: Never Total Score: 1 Score Reviewed/Action Taken: Yes EDITH-7 AMB Questionnaire EDITH-7 Date EDITH - 7 assessed: 10/30/24 Feeling nervous, anxious, or on edge: 0 = Not at all Not being able to stop or control worryin = Not at all Worrying too much about different things: 0 = Not at all Trouble relaxin = Not at all Being so restless that it is hard to sit still: 0 = Not at all Becoming easily annoyed or irritable: 0 = Not at all Feeling afraid as if something awful might happen: 0 = Not at all Total EDITH-7 score (0-4 normal; 5-9 mild; 10-14 moderate; 15-21 severe): 0 Source: Developed by Drs. Russell Ascencio, Akanksha Schroeder, Binu Jesus and colleagues, with an educational mayur from [employer]. EDITH-7 Assessment Billing EDITH-7 Assessment Tool: EDITH-7 Assessment 91984 Physical exam (Primary Care) Vital Signs: Last Vital Signs Pulse 96 10/30/24 13:49 BP 118/72 10/30/24 13:49 Pulse Ox 98 10/30/24 13:49 Oxygen Delivery Method Room Air 10/30/24 13:49 BMI result Body Mass Index 22.7 Tobacco/Smoking Status: Tobacco use Status Tobacco use date assessed 10/30/24 10/30/24 13:55 Patient Tobacco Use Status Former Tobacco user 10/30/24 13:55 e-Cigarette/Vaping Use Never Used 10/30/24 13:55 PHQ-9: PHQ-9 Score PHQ-9: Total score 0 10/30/24 14:07 Depression Screening Interpretation: Negative Thrive Assessment: Date of Thrive Assessment Date Thrive assessed 10/30/24 10/30/24 13:55 Currently or been in a relationship where the following occur: I choose not to answer Coding Level of Care Code Est Pt Level 4 (70720) Complex EM visit Add On G2211 Diagnoses Hypertension, essential I10 Moderate persistent asthma without complication J45.40 Asthma complication type: uncomplicated Panic anxiety syndrome F41.0 Pre-diabetes R73.03 Additional Codes EDITH-7 Assessment Billing - EDITH-7 Assessment Tool: EDITH-7 Assessment 42291 ([id number]) PHQ-9 - 46365 - PHQ-9 Billing: Yes ([id number]) Assessment & Plan Assessment & Plan (1) Hypertension, essential: Code(s): I10 - Essential (primary) hypertension Category: Medical (2) Asthma, moderate persistent: Code(s): J45.40 - Moderate persistent asthma, uncomplicated Category: Medical Qualifiers: Asthma complication type: uncomplicated Qualified Code(s): J45.40 - Moderate persistent asthma, uncomplicated (3) Panic anxiety syndrome: Code(s): F41.0 - Panic disorder [episodic paroxysmal anxiety] Category: Medical (4) Pre-diabetes: Code(s): R73.03 - Prediabetes Category: Medical Plan Patient is 64-year-old female came in today for her follow-up appointment Last time seen was June of this year - Asthma: Patient reports needing an albuterol inhaler for an upcoming trip to [place]. Currently on Flovent and small nebulizer machine if needed - Anemia: Hemoglobin level noted as slightly low at 11.8 in September. Patient denies visible bleeding but suspects hemorrhoids as a potential cause. - Prediabetes: Mentioned without previous confirmation; patient was unaware but confirmed as prediabetic. No current medication regimen required per discussion. - Mood Disorder: Patient has history of depressive symptoms with episodes of crying and screaming. Lorazepam to be sent as prescription for anxiety. - Travel Plans: Plans to travel to [place] with a deburring machine operator, potentially aggravating asthma due to weather conditions. No other concerns reported. - Family and Social History: Family history of diabetes noted. Social enjoyment of traveling, plans to visit [place] and [place], shared. - Essential Hypertension: Currently controlled with medication. Problem List - Asthma - Anemia - Prediabetes - Mood Disorder with Depression Patient Instructions - Take both the albuterol and your Flovent inhaler with you to [place]. - Continue monitoring your asthma and use the nebulizer as needed. - Maintain current weight and lifestyle habits to manage prediabetes. - Obtain labs every six months to monitor prediabetic status. - Use lorazepam as needed for anxiety and emotional disturbances. - Enjoy safe travels and manage rest with planned stops during long trips. Orders: Orders Comprehensive [place]. Panel Fast 5 Months F41.0 - Panic disorder [episodic paroxysmal anxiety], I10 - Essential (primary) hypertension, J45.40 - Moderate persistent asthma, uncomplicated, R73.03 - Prediabetes Hemoglobin A1c 5 Months F41.0 - Panic disorder [episodic paroxysmal anxiety], I10 - Essential (primary) hypertension, J45.40 - Moderate persistent asthma, uncomplicated, R73.03 - Prediabetes Complete Blood Count Auto Diff 5 Months F41.0 - Panic disorder [episodic paroxysmal anxiety], I10 - Essential (primary) hypertension, J45.40 - Moderate persistent asthma, uncomplicated, R73.03 - Prediabetes Lipid Panel 5 Months F41.0 - Panic disorder [episodic paroxysmal anxiety], I10 - Essential (primary) hypertension, J45.40 - Moderate persistent asthma, uncomplicated, R73.03 - Prediabetes Medications: Refilled albuterol sulfate 90 mcg/actuation (Ventolin HFA) 1 inh inhalation QID 30 days PRN 18 grams 1RF shortness of breath or wheezing fluticasone propionate 250 mcg/actuation (Flovent Diskus) 1 inh inhalation BID 90 days 3 multiple units 1RF J45.40 - Moderate persistent asthma, uncomplicated cholecalciferol (vitamin D3) 50 mcg PO DAILY 90 days 90 caps 0RF losartan-hydrochlorothiazide 100-25 mg 1 tab PO DAILY 90 days 90 tabs 1RF lorazepam 0.5 mg PO DAILY PRN 30 tabs 0RF anxiety
== END 2024-10-30 14:10 | disposition home or self-care (01) ==
LOC: HO.HMCC 13:41
PROVIDERS: PCP Internal Medicine; Visit Provider Internal Medicine
DX: I10 Essential (primary) hypertension (principal); J45.40 Moderate persistent asthma, uncomplicated; F41.0 Panic disorder [episodic paroxysmal anxiety]; R73.03 Prediabetes

== ENCOUNTER → 2024-10-30 13:40 | Outpatient (BNVA) | payer MEDICARE, MEDICAID, SELFPAY | PROVIDERS: PCP Internal Medicine; Visit Provider Internal Medicine | DX: I10 Essential (primary) hypertension (principal); J45.40 Moderate persistent asthma, uncomplicated; F41.0 Panic disorder [episodic paroxysmal anxiety]; R73.03 Prediabetes | CPT/HCPCS: 96127; 99212 ==

== ENCOUNTER 2024-12-21 14:21 | Outpatient (REF) | payer MEDICARE, MEDICAID, SELFPAY | END 2024-12-21 14:22 | disposition home or self-care (01) | LOC: HO.MAMMO 14:21 | PROVIDERS: PCP Internal Medicine; Visit Provider Internal Medicine | DX: Z12.31 Encounter for screening mammogram for malignant neoplasm of breast (principal) | CPT/HCPCS: 77063; 77067 ==

== ENCOUNTER → 2024-12-21 14:30 | Outpatient (BNV) | payer MEDICARE, MEDICAID, SELFPAY | PROVIDERS: PCP Internal Medicine; Visit Provider Internal Medicine | DX: Z12.31 Encounter for screening mammogram for malignant neoplasm of breast (principal) | CPT/HCPCS: 77063; 77067 ==

== ENCOUNTER 2025-03-02 15:21 | Outpatient (AMB) | payer MEDICARE, MEDICAID, SELFPAY ==
[2025-03-02 15:27] VITALS: BP 144/74; PULSE 83; O2SAT 97; BMI 22.7
--- NOTE | 2025-03-02 15:27 | MHC.PC.OV ---
Vital Signs 03/02/25 15:27 Height 5 ft 2 in Weight 124 lb BMI 22.7 BP 144/74 H Blood Pressure Location Lt brachial Position Sitting Pulse 83 Pulse Source Pulse Oximeter Pulse Oximetry (%) 97 Intake Visit Reasons: Annual visit Allergies Penicillins Allergy (Unknown, Verified 03/02/25 15:27) Unknown lisinopril Adverse Reaction (Unknown, Verified 03/02/25 15:27) cough Medication List - Last Reconciled 03/02/25 by Erika Vyas MD acetaminophen 500 mg PO Q6H PRN 90 days albuterol sulfate 0.63 mg (3 mL) inhalation QID PRN 90 days albuterol sulfate 90 mcg/actuation (Ventolin HFA) 1 inh inhalation QID PRN 30 days beclomethasone dipropionate 80 mcg/actuation (Qvar RediHaler) 1 inh inhalation Q12H cholecalciferol (vitamin D3) 50 mcg PO DAILY 90 days ibuprofen 800 mg PO Q8H lorazepam 0.5 mg PO DAILY PRN losartan-hydrochlorothiazide 100-25 mg 1 tab PO DAILY 90 days Tobacco use date assessed: 10/30/24 Fall risk assessment: No Falls in past year Last assessed Fall Risk: 03/02/25 Dental Screening Dental Screen Date: 10/30/24 HPI Annual visit HPI Details Physical exam The patient is a 64-year-old female presenting with follow-up for hypertension management and health maintenance. Essential Hypertension: - History of elevated blood pressure, currently managed with Losartan-Hydrochlorothiazide 100-25 mg once daily. - Blood pressure at the current visit is 144/74 mmHg, slightly elevated from previous levels. - Mention of Ibuprofen use possibly contributing to elevated blood pressure. Lumbar Back pain currently responding to ibuprofen Bronchial Asthma: - Stable condition, with the use of an Albuterol inhaler as needed. - No recent exacerbations reported. Generalized Anxiety Disorder with Panic Attacks: - Described as stable, no active treatment or counseling recently. - The patient reports having a supportive social network that helps manage anxiety. Persistent Depressive Disorder: - Described as stable, no recent exacerbations, and not currently seeing a counselor. Constipation: - Described as stable. Prediabetes: - Fasting blood sugar history of 104 mg/dL, with Hemoglobin A1c of 5.8 noted in latest labs. Anemia: - Previous labs from September showed slight anemia with Hemoglobin of 11.8 g/dL. Medical History: - Essential Hypertension - Bronchial Asthma - Generalized Anxiety Disorder with Panic Attacks - Persistent Depressive Disorder - Constipation - Prediabetes - Anemia Social History: - Engages in social activities with a supportive friend, travels often, and attends entertainment events like the [email or web address]. 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 - Denies significant alcohol consumption. - Reports balanced diet and regular food intake. Health Maintenance - Pending order for updated laboratory tests. - Mammogram performed in December of current year. - Due for Tdap, Shingles, Pneumococcal, and Influenza vaccinations. - Advised to complete fasting blood test for updated results. - Vitamin D level was stable at 56 from previous labs. Teller of Care Established with a Visitor Services Specialist at [facility] Medications - Losartan-Hydrochlorothiazide 100-25 mg daily for hypertension. - Vitamin D supplement. - Albuterol inhaler as needed for asthma. Patient Instructions - Ensure to complete the pending laboratory tests with fasting. - Moderation with Ibuprofen usage to avoid elevation in blood pressure. - Plan to receive recommended vaccinations at the clinic or pharmacy soon. - Utilize a back brace as necessary for support during activities. Follow-up 4 months Review of Systems - General: No fever no chills - Neurological: No headaches no dizziness - Ear nose throat: No sore throat no hearing difficulty no ear pain - Cardiovascular: No syncope, no chest pain, no palpitations - Gastrointestinal: No nausea vomiting or diarrhea - Endocrine: No polyuria polydipsia no heat intolerance - Genitourinary: No dysuria - Skin: No new complaints Physical Exam General: Cooperative, healthy appearing, comfortable, no acute distress Orientation: Patient oriented x3 Limitations: None Head: Normal to inspection Ears: Within normal limit visually Nose: Normal external nose present Face and sinus: Normal facial exam Eyes: Appearance normal, extraocular movement intact pupils reactive Neck: Normal visual inspection and supple Respiratory: Normal respiratory effort and able to speak in complete sentences. Clear to auscultation, no stridor Cardiovascular: S1 and S2 RRR Breast exam benign GI: Normal to inspection. Soft to palpation and nontender Skin: Turgor normal, no acute findings Neuro: Patient oriented x3, motor sensory intact, balance intact, tandem failed Extremities: Normal to inspection [facility] Medical History Endometrial cancer Anxiety Depression, major, recurrent Hypertension, essential Surgical History History of esophagogastroduodenoscopy (EGD) Hx of tubal ligation History of colonoscopy History of section Family History Father No problems noted. Mother HTN (hypertension) Diabetes mellitus Sister Metastatic cancer Sister Brain cancer Maternal Grandfather No problems noted. Maternal Grandmother No problems noted. Paternal Grandfather No problems noted. Paternal Grandmother No problems noted. Social History Housing: House Alcohol intake: current Alcohol intake frequency: holidays/special occasions only Patient Tobacco Use Status: Former Tobacco user e-Cigarette/Vaping Use: Never Used service: No Current occupational status: employed Cognitive needs: No Hearing needs: No Vision needs: No Questionnaire PHQ-9 Over the last 2 weeks, how often have you been bothered by any of the following problems? 1. Little interest or pleasure in doing things: not at all 2. Feeling down, depressed, or hopeless: not at all 3. Trouble falling or staying asleep, or sleeping too much: not at all 4. Feeling tired or having little energy: not at all 5. Poor appetite or overeating: not at all 6. Feeling bad about yourself - or that you are a failure or have let yourself or your family down: not at all 7. Trouble concentrating on things, such as reading the newspaper or watching television: not at all 8. Moving or speaking so slowly that other people could have noticed. Or the opposite - being so fidgety or restless that you have been moving around a lot more than usual: not at all 9. Thoughts that you would be better off or of hurting yourself in some way: not at all Total score: 0 Depression Screening Interpretation: Negative Depression Screening Done: Yes 94596 - PHQ-9 Billing: Yes Source: Developed by Drs. Russell Ascencio, Akanksha Schroeder, Binu Jesus and colleagues, with an educational mayur from [employer]. Thrive Questionnaire Date Thrive assessed: 07/01/24 I am a: Patient What is your living situation today?: I have a steady place to live Within the past 12 months, did the food you bought not last and you didn't have the money to get more?: Sometimes True Within the past 12 months, did you worry whether your food would run out before you got money to buy more?: Sometimes True Do you have trouble paying for medicines?: No Do you have trouble getting transportation to medical appointments?: I choose not to answer this question Do you have trouble paying your heating and electricity bill?: I choose not to answer this question Do you have trouble taking care of your child, family member or friend?: No Do you have trouble with day-to-day activities such as bathing, preparing meals, shopping, managing finances, etc.?: No Are you currently unemployed and looking for a job?: No Are you interested in more education?: No Please select the resources that you would like help with: None Currently or been in a relationship where the following occur: I choose not to answer THRIVE Score: 2 AUDIT C Alcohol Use Questionnaire (AUDIT-C) 1. How often do you have a drink containing alcohol?: Monthly or less 2. How many drinks containing alcohol do you have on a typical day when you are drinking?: 1 or 2 3. How often do you have six or more drinks on one occasion?: Never Total Score: 1 EDITH-7 AMB Questionnaire EDITH-7 Date EDITH - 7 assessed: 10/30/24 Feeling nervous, anxious, or on edge: 0 = Not at all Not being able to stop or control worryin = Not at all Worrying too much about different things: 0 = Not at all Trouble relaxin = Not at all Being so restless that it is hard to sit still: 0 = Not at all Becoming easily annoyed or irritable: 0 = Not at all Feeling afraid as if something awful might happen: 0 = Not at all Total EDITH-7 score (0-4 normal; 5-9 mild; 10-14 moderate; 15-21 severe): 0 Source: Developed by Drs. Russell Ascencio, Akanksha Schoreder, Binu Jesus and colleagues, with an educational mayur from [employer]. EDITH-7 Assessment Billing EDITH-7 Assessment Tool: EDITH-7 Assessment 36890 Physical exam (Primary Care) Vital Signs: Last Vital Signs Pulse 83 03/02/25 15:27 BP 144/74 H 03/02/25 15:27 Pulse Ox 97 03/02/25 15:27 BMI result Body Mass Index 22.7 Tobacco/Smoking Status: Tobacco use Status Tobacco use date assessed 10/30/24 03/02/25 15:31 Patient Tobacco Use Status Former Tobacco user 03/02/25 15:31 e-Cigarette/Vaping Use Never Used 03/02/25 15:31 PHQ-9: PHQ-9 Score PHQ-9: Total score 0 03/02/25 15:31 Depression Screening Interpretation: Negative Thrive Assessment: Date of Thrive Assessment Date Thrive assessed 07/01/24 03/02/25 15:31 Currently or been in a relationship where the following occur: I choose not to answer Coding Level of Care Code Est Pt Level 3 (78306) Est Pt Prev Care >65y(23542) Diagnoses Encounter for general adult medical examination with abnormal findings Z00.01 Chronic midline low back pain without sciatica M54.50; G89.29 Back pain laterality: midline Chronicity: chronic Sciatica presence: without sciatica Elevated ferritin R79.89 Other iron deficiency anemia D50.8 Anemia type: iron deficiency Iron deficiency anemia type: other iron deficiency Pre-diabetes R73.03 Hypertension, essential I10 Panic anxiety syndrome F41.0 Additional Codes EDITH-7 Assessment Billing - EDITH-7 Assessment Tool: EDITH-7 Assessment 57858 ([id number]) PHQ-9 - 69039 - PHQ-9 Billing: Yes ([id number]) Assessment & Plan Assessment & Plan (1) Encounter for general adult medical examination with abnormal findings: Code(s): Z00.01 - Encounter for general adult medical examination with abnormal findings Category: Medical (2) Low back pain: Code(s): M54.50 - Low back pain, unspecified Category: Medical Qualifiers: Back pain laterality: midline Chronicity: chronic Sciatica presence: without sciatica Qualified Code(s): M54.50 - Low back pain, unspecified; G89.29 - Other chronic pain (3) Elevated ferritin: Code(s): R79.89 - Other specified abnormal findings of blood chemistry Category: Medical (4) Anemia: Code(s): D64.9 - Anemia, unspecified Category: Medical Qualifiers: Anemia type: iron deficiency Iron deficiency anemia type: other iron deficiency Qualified Code(s): D50.8 - Other iron deficiency anemias (5) Pre-diabetes: Code(s): R73.03 - Prediabetes Category: Medical (6) Hypertension, essential: Code(s): I10 - Essential (primary) hypertension Category: Medical (7) Panic anxiety syndrome: Code(s): F41.0 - Panic disorder [episodic paroxysmal anxiety] Category: Medical Plan Physical exam The patient is a 64-year-old female presenting with follow-up for hypertension management and health maintenance. Essential Hypertension: - History of elevated blood pressure, currently managed with Losartan-Hydrochlorothiazide 100-25 mg once daily. - Blood pressure at the current visit is 144/74 mmHg, slightly elevated from previous levels. - Mention of Ibuprofen use possibly contributing to elevated blood pressure. Lumbar Back pain currently responding to ibuprofen Bronchial Asthma: - Stable condition, with the use of an Albuterol inhaler as needed. - No recent exacerbations reported. Generalized Anxiety Disorder with Panic Attacks: - Described as stable, no active treatment or counseling recently. - The patient reports having a supportive social network that helps manage anxiety. Persistent Depressive Disorder: - Described as stable, no recent exacerbations, and not currently seeing a counselor. Constipation: - Described as stable. Prediabetes: - Fasting blood sugar history of 104 mg/dL, with Hemoglobin A1c of 5.8 noted in latest labs. Anemia: - Previous labs from September showed slight anemia with Hemoglobin of 11.8 g/dL. Medical History: - Essential Hypertension - Bronchial Asthma - Generalized Anxiety Disorder with Panic Attacks - Persistent Depressive Disorder - Constipation - Prediabetes - Anemia Social History: - Engages in social activities with a supportive friend, travels often, and attends entertainment events like the [email or web address]. 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 - Denies significant alcohol consumption. - Reports balanced diet and regular food intake. Health Maintenance - Pending order for updated laboratory tests. - Mammogram performed in December of current year. - Due for Tdap, Shingles, Pneumococcal, and Influenza vaccinations. - Advised to complete fasting blood test for updated results. - Vitamin D level was stable at 56 from previous labs. Teller of Care Established with a Visitor Services Specialist at [facility] Medications - Losartan-Hydrochlorothiazide 100-25 mg daily for hypertension. - Vitamin D supplement. - Albuterol inhaler as needed for asthma. Patient Instructions - Ensure to complete the pending laboratory tests with fasting. - Moderation with Ibuprofen usage to avoid elevation in blood pressure. - Plan to receive recommended vaccinations at the clinic or pharmacy soon. - Utilize a back brace as necessary for support during activities. Medications: New [Back Brace with Valcaro] As directed 1 ea 0RF M54.50 - Low back pain, unspecified [Back Brace with Valcaro] As directed 1 ea 0RF M54.50 - Low back pain, unspecified Refilled losartan-hydrochlorothiazide 100-25 mg 1 tab PO DAILY 90 tabs 0RF 90 days
== END 2025-03-02 15:53 | disposition home or self-care (01) ==
LOC: HO.HMCC 15:22
PROVIDERS: PCP Internal Medicine; Visit Provider Internal Medicine
DX: Z00.01 Encounter for general adult medical examination with abnormal findings (principal); M54.50 Low back pain, unspecified; G89.29 Other chronic pain; R73.03 Prediabetes; R79.89 Other specified abnormal findings of blood chemistry; D50.8 Other iron deficiency anemias; I10 Essential (primary) hypertension; F41.0 Panic disorder [episodic paroxysmal anxiety]

== ENCOUNTER → 2025-03-02 15:21 | Outpatient (BNVA) | payer MEDICARE, MEDICAID, SELFPAY | PROVIDERS: PCP Internal Medicine; Visit Provider Internal Medicine | DX: Z00.01 Encounter for general adult medical examination with abnormal findings (principal); I10 Essential (primary) hypertension; M54.50 Low back pain, unspecified; J45.909 Unspecified asthma, uncomplicated; F41.1 Generalized anxiety disorder; F41.0 Panic disorder [episodic paroxysmal anxiety]; F32.A Depression, unspecified; R73.03 Prediabetes; K59.00 Constipation, unspecified; G89.29 Other chronic pain; R79.89 Other specified abnormal findings of blood chemistry; D50.8 Other iron deficiency anemias | CPT/HCPCS: 96127; 99212; 99397 ==

== ENCOUNTER 2025-03-10 09:29 | Outpatient (REF) | payer MEDICARE, MEDICAID, SELFPAY ==
[2025-03-10 14:00] LABS: MANUAL DIFF FLAG NO
[2025-03-10 14:02] LABS: Hematocrit 38.2 % (37.0-47.0); Hemoglobin 12.2 g/dl (12.0-16.0); Imm Gran Abs Auto 0.01 X10*3/uL (0.00-0.03); Imm Gran Pct Auto 0.2 % (0.0-0.4); Lymphocytes Absolute Auto 2.0 X10*3/uL (1.2-4.9); Mean Corpuscular HGB Conc 31.9 g/dl (31.0-35.0); Mean Corpuscular Hemoglobin 26.8 pg (27.0-33.0); Mean Corpuscular Volume 84.0 fL (80.0-98.0); NRBC Abs Auto 0.000 X10*3/uL (0.0-0.012); NRBC Pct Auto 0.0 /100WBC (0.0-0.2); Platelet Count 206 X10*3/uL (160-400); Red Blood Count 4.55 X10*6/uL (4.20-5.50); White Blood Count 5.0 X10*3/uL (4.8-10.8)
[2025-03-10 14:18] LABS: Alanine Aminotransferase 28 U/L (0-31); Albumin Level 4.3 g/dL (3.5-5.0); Alkaline Phosphatase 59 U/L (39-117); Anion Gap 11 (12-20); Aspartate Amino Transferase 28 U/L (5-31); Blood Urea Nitrogen 19 mg/dL (9-16); Calcium 9.5 mg/dL (8.4-10.2); Carbon Dioxide 27 mmol/L (22-29); Chloride 109 mmol/L (96-108); Cholesterol 250 mg/dL (<200); Estimated Glomerular Filt Rate > 60; HDL Cholesterol 58 mg/dL (>40); Potassium 3.7 mmol/L (3.3-5.1); Sodium 143 mmol/L (135-145); Total Protein 6.9 g/dL (6.5-8.0); Triglycerides 281 mg/dL (<150)
[2025-03-10 14:59] LABS: Hemoglobin A1C 173.8338 umol/L; Total Hemoglobin (HGBA1C) 4410.5129 umol/L
== END 2025-03-10 09:30 | disposition home or self-care (01) ==
LOC: HO.HMGCLDS 09:29
PROVIDERS: PCP Internal Medicine; Visit Provider Internal Medicine
DX: R73.03 Prediabetes (principal); F41.0 Panic disorder [episodic paroxysmal anxiety]; J45.40 Moderate persistent asthma, uncomplicated; I10 Essential (primary) hypertension
CPT/HCPCS: 36415; 80053; 80061; 83036; 85025